=== PATIENT | female | born 1940 | race Caucasian/White ===

== ENCOUNTER 2016-11-10 12:47 | Emergency (ER) | payer MEDICARE, OTHER ==
[~2016-11-10] VITALS: Ht 165.1 cm; Wt 58.4 kg
[~2016-11-10 12:47] MED LIST: BUTA1CAP5 PO; CIPR-9 PO; HYDR-3801 PO; LOSA50TA PO; METO25TA3 PO; METR-1 PO; OMEP20TA PO; PERC5TAB12 PO; XARE20TA PO; ZOFR4TAB PO
[2016-11-10 12:56] VITALS: BP 121/73; PULSE 71; RESP 16; TEMP 97.7; O2SAT 98
[2016-11-10] MEDS ORDERED: SODIUM CHLOR 0.9% 1000 ML INJ 1,000 ML IV ONE (13:16)
[2016-11-10] MEDS ORDERED: CYMB30CA PO (13:21)
--- NOTE | 2016-11-10 13:28 | PD ---
HPI Chief Complaint: GI Complaint Time Seen by Provider: 13:07 Travel History International Travel<30 days: No Contact w/Intl Traveler<30days: No Traveled to known affect area: No History of Present Illness HPI The patient is a 76-year-old female who presents emergency department for diarrhea. The patient states her symptoms started approximately one month ago which she was diagnosed with diverticulitis. The patient was placed on Cipro and Flagyl, stasis Cipro gave her severe diarrhea. The patient is had intermittent diarrhea since that episode, now complains of bloody diarrhea. She does note diarrhea which occasional has bright red blood around the house with the diarrhea, has approximately 8-10 loose, watery, bowel movements per day , occasionally with blood. The patient also complains of intermittent abdominal cramping. The patient states she had 2 colonoscopies 2 years ago secondary to diverticulitis to evaluate if she would undergo colectomy, however , states she did not undergo colectomy. She does have a history of hysterectomy with previous small bowel obstruction secondary to adhesions, subsequently had surgical lysis of her adhesions. The patient was evaluated by her primary physician who referred her to the emergency department for dehydration and IV fluids. The patient denies any fever, chills, or sweats. The patient's development editor is Dr. Heller. The patient's colorectal surgeon is Dr. Angulo. The patient's primary physician is Dr. Leung. PFSH Past Medical History Hx Anticoagulant Therapy: Yes (XARELTO) Arthritis: No Asthma: No Autoimmune Disease: No Anxiety: Yes Depression: No Heart Rhythm Problems: Yes Cancer: No Cardiovascular Problems: Yes ([place], HTN) High Cholesterol: Yes Chemotherapy: No Chest Pain: Yes Congestive Heart Failure: No COPD: No Cerebrovascular Accident: Yes (NO DEFICITS) Coronary Artery Disease: Yes (mitral valve regurge) Diabetes: No Patient Takes Glucophage: No Diminished Hearing: No Diverticulitis: Yes Endocrine: No Gastrointestinal Disorders: No (last bm 07/02) GERD: Yes Genitourinary: No Headaches: No Hiatal Hernia: No Heparin Induced Thrombocytopen: No Hypertension: Yes Immune Disorder: No Implanted Vascular Access Dvce: No Kidney Stones: No Musculoskeletal: Yes (left shoulder and wrist pain, cause unknown) Neurologic: No Psychiatric: No Reproductive: Yes (HYSTERECTOMY) Respiratory: Yes (SOB) Immunizations Current: Yes Migraines: No Radiation Therapy: No Renal Failure: No Seizures: No Sickle Cell Disease: No Sleep Apnea: No Thyroid Disease: No Ulcer: No Tetanus Vaccination: Unknown ?: Not Menopausal: Yes Para: 3 Past Surgical History Abdominal Surgery: Yes (abdominal adhesions) AICD: No Arteriovenous Shunt: No Cardiac Surgery: Yes (SEPTAL MYOMECTOMY AND LEFT MAZE, ABLATION FOR AFIB) Ear Surgery: No Endocrine Surgery: Yes (TONSILLECTOMY) Eye Surgery: Yes (bilateral cataracts) Genitourinary Surgery: No Gynecologic Surgery: Yes (HYSTERECTOMY) Hysterectomy: Yes Insulin Pump: No Joint Replacement: No Neurologic Surgery: No Oral Surgery: No Pacemaker: No Thoracic Surgery: No Tonsillectomy: Yes Other Surgery: Yes (face lift, HEMORRHOIDECTOMY) Social History Alcohol Use: Yes (WINE 3-4 X WEEKLY) Tobacco Use: No Substance Use: No Allergies-Medications (Allergen,Severity, Reaction): Coded Allergies: Artane (Verified Allergy, Severe, focal dystonia, 11/10/16) Cardizem (Verified Allergy, Severe, achy muscles, blurry vision, 11/10/16) Celebrex (Verified Allergy, Severe, has sulfa in it, 11/10/16) Codeine (Verified Allergy, Severe, rash/hives, 11/10/16) Doxazosin (Verified Allergy, Severe, incontinence, eye itch, 11/10/16) Eliquis (Verified Allergy, Severe, Rash, 11/10/16) Felodipine (Verified Allergy, Severe, swelling of ankles, 11/10/16) Lasix (Verified Allergy, Severe, SULFA BASED, 11/10/16) Lovastatin (Verified Allergy, Severe, achy muscles, 11/10/16) Penicillin (Verified Allergy, Severe, Anaphylaxis, 11/10/16) Primidone (Verified Allergy, Severe, Nausea/Vomiting, 11/10/16) Sulfa (Verified Allergy, Severe, Anaphylaxis, 11/10/16) Norvasc (Verified Allergy, Unknown, unknown, 11/10/16) Vasotec (Verified Allergy, Unknown, unknown, 11/10/16) Ciprofloxacin (Verified Adverse Reaction, Severe, diarrhea, 11/10/16) Reported Meds & Prescriptions Reported Meds & Active Scripts Active Reported Cymbalta DR (Duloxetine HCl) 30 Mg Capdr 30 Mg PO DAILY Metoprolol Tartrate 25 Mg Tab 25 Mg PO BID Losartan (Losartan Potassium) 50 Mg Tab 50 Mg PO BID Hydralazine (Hydralazine HCl) 100 Mg Tab 100 Mg PO BID Take with meals Omeprazole 20 Mg Tab 20 Mg PO DAILY Xarelto (Rivaroxaban) 20 Mg Tab 20 Mg PO DAILY Review of Systems Except as stated in HPI: all other systems reviewed are Neg General / Constitutional: Positive: Weight Loss (weight loss of 5 pounds over the last month), No: Fever Cardiovascular: No: Chest Pain or Discomfort Respiratory: No: Shortness of Breath Gastrointestinal: Positive: Diarrhea, Abdominal Pain, Hematochezia, No: Nausea , Vomiting Genitourinary: No: Dysuria Musculoskeletal: No: Weakness Neurologic: No: Dizziness Physical Exam Narrative GENERAL: Awake, alert, pleasant 76-year-old female who appears her stated age and is in no acute respiratory distress. SKIN: Warm and dry. HEAD: Atraumatic. Normocephalic. EYES: No injection or drainage. ENT: No nasal bleeding or discharge. Slightly dry mucous membranes. NECK: Trachea midline. No JVD. CARDIOVASCULAR: Regular rate and rhythm. No murmur appreciated. RESPIRATORY: No accessory muscle use. Clear to auscultation. Breath sounds equal bilaterally. GASTROINTESTINAL: Abdomen soft, well-healed midline scar inferior to the umbilicus. Minimal tenderness, no rebound tenderness, guarding, or rigidity. Rectal: The exam was performed in the presence of a female nurse. No gross blood on digital exam, however, guaiac positive. MUSCULOSKELETAL: No obvious deformities. No clubbing. No cyanosis. No edema. NEUROLOGICAL: Awake and alert. No obvious cranial nerve deficits. Motor grossly within normal limits. Normal speech. PSYCHIATRIC: Appropriate mood and affect; insight and judgment normal. Data Data Last Documented VS Vital Signs Date Time Temp Pulse Resp B/P Pulse Ox O2 Delivery O2 Flow Rate FiO2 11/10/16 14:24 75 16 166/88 100 Room Air 11/10/16 12:56 97.7 Orders Complete Blood Count With Diff (11/10/16 13:16) Comprehensive Metabolic Panel (11/10/16 13:16) Lipase (11/10/16 13:16) Ct Abd/Pel W/O Iv Contrast (11/10/16 ) Iv Access Insert/Monitor (11/10/16 13:16) Ecg Monitoring (11/10/16 13:16) Oximetry (11/10/16 13:16) Sodium Chlor 0.9% 1000 Ml Inj (Ns 1000 M (11/10/16 13:16) Sodium Chloride 0.9% Flush (Ns Flush) (11/10/16 13:30) C Diff Toxin Pcr (11/10/16 13:16) Enteric Path (Stool) (11/10/16 13:16) Electrocardiogram (11/10/16 ) Chest, Single Ap (11/10/16 ) Potassium Chloride (Kcl) (11/10/16 14:45) Labs Laboratory Tests Test 11/10/16 13:25 White Blood Count 6.5 TH/MM3 Red Blood Count 3.57 MIL/MM3 Hemoglobin 12.1 GM/DL Hematocrit 36.7 % Mean Corpuscular Volume 102.8 FL Mean Corpuscular Hemoglobin 34.1 PG Mean Corpuscular Hemoglobin 33.1 % Concent Red Cell Distribution Width 12.2 % Platelet Count 308 TH/MM3 Mean Platelet Volume 7.0 FL Neutrophils (%) (Auto) 68.0 % Lymphocytes (%) (Auto) 18.4 % Monocytes (%) (Auto) 12.2 % Eosinophils (%) (Auto) 0.9 % Basophils (%) (Auto) 0.5 % Neutrophils # (Auto) 4.4 TH/MM3 Lymphocytes # (Auto) 1.2 TH/MM3 Monocytes # (Auto) 0.8 TH/MM3 Eosinophils # (Auto) 0.1 TH/MM3 Basophils # (Auto) 0.0 TH/MM3 CBC Comment DIFF FINAL Differential Comment Sodium Level 141 MEQ/L Potassium Level 2.9 MEQ/L Chloride Level 101 MEQ/L Carbon Dioxide Level 28.9 MEQ/L Anion Gap 11 MEQ/L Blood Urea Nitrogen 13 MG/DL Creatinine 0.70 MG/DL Estimat Glomerular Filtration 81 ML/MIN Rate Random Glucose 88 MG/DL Calcium Level 7.6 MG/DL Total Bilirubin 0.8 MG/DL Aspartate Amino Transf 13 U/L (AST/SGOT) Alanine Aminotransferase 10 U/L (ALT/SGPT) Alkaline Phosphatase 51 U/L Total Protein 7.8 GM/DL Albumin 3.6 GM/DL Lipase 186 U/L [facility] Medical Decision Making Medical Screen Exam Complete: Yes Emergency Medical Condition: Yes Medical Record Reviewed: Yes Interpretation(s) EKG reveals left bundle branch block, no significant changes compared to EKG performed July 04, 2016. Laboratory Tests Test 11/10/16 13:25 White Blood Count 6.5 TH/MM3 Red Blood Count 3.57 MIL/MM3 Hemoglobin 12.1 GM/DL Hematocrit 36.7 % Mean Corpuscular Volume 102.8 FL Mean Corpuscular Hemoglobin 34.1 PG Mean Corpuscular Hemoglobin 33.1 % Concent Red Cell Distribution Width 12.2 % Platelet Count 308 TH/MM3 Mean Platelet Volume 7.0 FL Neutrophils (%) (Auto) 68.0 % Lymphocytes (%) (Auto) 18.4 % Monocytes (%) (Auto) 12.2 % Eosinophils (%) (Auto) 0.9 % Basophils (%) (Auto) 0.5 % Neutrophils # (Auto) 4.4 TH/MM3 Lymphocytes # (Auto) 1.2 TH/MM3 Monocytes # (Auto) 0.8 TH/MM3 Eosinophils # (Auto) 0.1 TH/MM3 Basophils # (Auto) 0.0 TH/MM3 CBC Comment DIFF FINAL Differential Comment Sodium Level 141 MEQ/L Potassium Level 2.9 MEQ/L Chloride Level 101 MEQ/L Carbon Dioxide Level 28.9 MEQ/L Anion Gap 11 MEQ/L Blood Urea Nitrogen 13 MG/DL Creatinine 0.70 MG/DL Estimat Glomerular Filtration 81 ML/MIN Rate Random Glucose 88 MG/DL Calcium Level 7.6 MG/DL Total Bilirubin 0.8 MG/DL Aspartate Amino Transf 13 U/L (AST/SGOT) Alanine Aminotransferase 10 U/L (ALT/SGPT) Alkaline Phosphatase 51 U/L Total Protein 7.8 GM/DL Albumin 3.6 GM/DL Lipase 186 U/L Last Impressions Chest X-Ray 11/10/16 0000 Signed Impressions: Service Date/Time: Thursday, November 10, 2016 13:53 - CONCLUSION: No acute disease. Shane Covarrubias MD FACR Abdomen/Pelvis CT 11/10/16 0000 Signed Impressions: Service Date/Time: Thursday, November 10, 2016 13:58 - CONCLUSION: No acute intra-abdominal or pelvic process. Chronic changes of the mid and distal sigmoid colon consistent with diverticular disease. Hepatic cysts. Joe Card MD Differential Diagnosis Differential diagnosis includes infectious diarrhea, colitis, enteritis, dehydration, Clostridium difficile, pseudomembranous colitis, diverticulosis, diverticulitis, GI bleed. Narrative Course IV was established, labs were drawn and sent, and the patient was placed on cardiac telemetry monitoring and continuous pulse oximetry monitoring. C. difficile and stool culture was ordered. Patient was administered 1 L of IV fluids. CT of the abdomen and pelvis was ordered to evaluate for colitis. The patient had arm pain while the blood pressure cuff was being inflated and complained of chest pain at that time, therefore, EKG was ordered and interpreted. EKG revealed left bundle-branch block an assisted skin changes. Chest x-ray was ordered. Chest x-ray was negative. Laboratory evaluation is unremarkable except for potassium at 2.9. The patient did not have diarrhea in the emergency department, therefore, C. difficile and enteric pathogens was unable to be sent to lab. Therefore, will write patient for outpatient testing for C. difficile and enteric pathogens, will also write for Flagyl 500 mg 3 times a day for 10 days for possible C. difficile. The patient will be provided a copy of her CT results and lab results at discharge show she can follow-up with her primary physician. Patient agrees and understands. [facility] Point of Care Internal Pos. & Neg. Controls: Passed Fecal Specimen Occult Blood: Positive Diagnosis Primary Impression: Diarrhea Qualified Code: R19.7 - Diarrhea, unspecified type Patient Instructions: General Instructions Additional Instructions: Please provide the patient a copy of her CT results and lab results at discharge. Flagyl 3 times a day for 10 days if see differential positive. Follow-up with Dr. Marino for lab results. Return if symptoms worsen or progress. Diet as tolerated. Med/Other Pt SpecificInfo: Prescription(s) given Scripts Metronidazole (Flagyl)500 Mg [id number] Mg PO TID 10 Days Ref 0 Prov:Pepe Melgar MD 11/10/16 Disposition: 01 DISCHARGE HOME Condition: Stable Pepe Melgar MD Nov 10, 2016 13:28
[2016-11-10 13:30] VITALS: RESP 16; O2SAT 98
[2016-11-10] MEDS ORDERED: SODIUM CHLORIDE 0.9% FLUSH 5 ML FLUSH IVF PRN (13:30)
[2016-11-10 13:33] LABS: AUTOMATED NEUTROPHIL # 4.4 TH/MM3 (1.8-7.7); BASOPHIL % 0.5 % (0.0-2.0); EOSINOPHIL # 0.1 TH/MM3 (0-0.4); EOSINOPHIL % 0.9 % (0.0-4.0); HEMATOCRIT 36.7 % (35.0-46.0); HEMO FLAGS DIFF FINAL; LYMPH % 18.4 % (9.0-44.0); LYMPHOCYTE # 1.2 TH/MM3 (1.0-4.8); MEAN CELL VOLUME 102.8 FL (80.0-100.0); MEAN CORPUSCULAR HEMOGLOBIN 34.1 PG (27.0-34.0); MEAN CORPUSCULAR HGB CONC 33.1 % (32.0-36.0); MONO % 12.2 % (0.0-8.0); PLATELET COUNT 308 TH/MM3 (150-450); RED BLOOD COUNT 3.57 MIL/MM3 (4.00-5.30); RED CELL DISTRIBUTION WIDTH 12.2 % (11.6-17.2); WHITE BLOOD COUNT 6.5 TH/MM3 (4.0-11.0)
[2016-11-10 13:48] VITALS: BP 179/117; PULSE 74; RESP 20; O2SAT 99
--- NOTE | 2016-11-10 14:19 | RADHPO ---
EXAM DATE/TIME: 11/10/2016 13:58 [facility] COMPARISON: CT ABDOMEN & PELVIS W CONTRAST, June 30, 2014, 9:30. INDICATIONS : Diarrhea, blood in stool and low blood pressure. ORAL CONTRAST: No oral contrast ingested. RADIATION DOSE: 5.32 CTDIvol (mGy) MEDICAL HISTORY : Cerebrovascular disease. Hypertension. Cardiovascular disease SURGICAL HISTORY : Hysterectomy. Cardiac surgery. ENCOUNTER: Initial ACUITY: 1 month PAIN SCALE: 0/10 LOCATION: abdomen/pelvis TECHNIQUE: Volumetric scanning of the abdomen and pelvis was performed. Using automated exposure control and ad justment of the mA and/or kV according to patient size, radiation dose was kept as low as reasonably achievable to obtain optimal diagnostic quality images. FINDINGS: LOWER LUNGS: The visualized lower lungs are clear. LIVER: Homogeneous density with 2 low density cysts in the right lobe liver stable and unchanged. There is n o dilation of the biliary tree. No calcified gallstones. Gallbladder seen with luminal structure wit hout wall thickening SPLEEN: Normal size without lesion. PANCREAS: Within normal limits. KIDNEYS: Normal in size and shape. There is no mass, stone, or hydronephrosis. ADRENAL GLANDS: Within normal limits. VASCULAR: There is no aortic aneurysm. BOWEL/MESENTERY: Mild diverticulitis of the sigmoid colon with no evidence of perforation ABDOMINAL WALL: Within normal limits. RETROPERITONEUM: There is no lymphadenopathy. BLADDER: No wall thickening or mass. REPRODUCTIVE: Within normal limits. INGUINAL: There is no lymphadenopathy or hernia. MUSCULOSKELETAL: Within normal limits for patient age. CONCLUSION: No acute intra-abdominal or pelvic process. Chronic changes of the mid and distal sig moid colon consistent with diverticular disease. Hepatic cysts. Joe Card MD on November 10, 2016 at 14:14 Board Certified Radiologist. This report was verified electronically.
[2016-11-10 14:20] LABS: ALKALINE PHOSPHATASE 51 U/L (45-117); ALT (GPT) 10 U/L (10-53); ANION GAP 11 MEQ/L (5-15); AST (GOT) 13 U/L (15-37); BICARBONATE 28.9 MEQ/L (21.0-32.0); BLOOD UREA NITROGEN 13 MG/DL (7-18); CHLORIDE 101 MEQ/L (98-107); GLOMERULAR FILTRATION RATE 81 ML/MIN (>89); SODIUM (NA) 141 MEQ/L (136-145); TOTAL BILIRUBIN ADULT 0.8 MG/DL (0.2-1.0)
[2016-11-10 14:21] LABS: POTASSIUM 2.9 MEQ/L (3.5-5.1)
[2016-11-10 14:24] VITALS: BP 166/88; PULSE 75; RESP 16; O2SAT 100
--- NOTE | 2016-11-10 14:32 | RADHPO ---
EXAM DATE/TIME: 11/10/2016 13:53 [facility] COMPARISON: No previous studies available for comparison. INDICATIONS : Chest pain. MEDICAL HISTORY : Hypertension. Cardiovascular disease. SURGICAL HISTORY : ablation, cardiac surgery for IHSS ENCOUNTER: Initial ACUITY: 2 days PAIN SCORE: 1/10 LOCATION: Bilateral chest FINDINGS: A single view of the chest demonstrates the lungs to be symmetrically aerated without evidence of mas s, infiltrate or effusion. The cardiomediastinal contours are unremarkable. Osseous structures are intact. CONCLUSION: No acute disease. Shane Covarrubias MD FACR on November 10, 2016 at 14:31 Board Certified Radiologist. This report was verified electronically.
[2016-11-10] MEDS ORDERED: POTASSIUM CHLORIDE 20 MEQ CONTROLLED RELEASE TAB PO ONE (14:45)
[2016-11-10] MEDS ORDERED: METR-1 PO (14:46)
--- NOTE | 2016-11-11 16:22 | EKG ---
Date Performed: 11/10/2016 Time Performed: 13:48:00 PTAGE: 76 years EKG: Sinus rhythm Possible left atrial abnormality Left axis deviation Left bundle branch block Compared to prior trac ing no significant change Abnormal ECG PREVIOUS TRACING : 07/04/2016 14.01 DOCTOR: Mir Mckay Interpretating Date/Time 11/11/2016 16:20:03
== END 2016-11-10 15:14 | disposition home or self-care (01) ==
LOC: PHED 12:47
DX: R19.7 Diarrhea, unspecified (principal); I10 Essential (primary) hypertension; Z79.01 Long term (current) use of anticoagulants; F41.9 Anxiety disorder, unspecified; Z86.73 Personal history of transient ischemic attack (TIA), and cerebral infarction without residual deficits; I34.0 Nonrheumatic mitral (valve) insufficiency; I25.2 Old myocardial infarction; I44.7 Left bundle-branch block, unspecified
CPT/HCPCS: 71010; 74176; 80053; 83690; 85025; 93005; 96360; 99284; J7030

== ENCOUNTER 2016-11-18 19:55 | Inpatient (IN) | payer MEDICARE ==
[~2016-11-18] VITALS: Ht 165.1 cm; Wt 58.5 kg
[~2016-11-18 19:55] MED LIST changes: -BUTA1CAP5 PO; -CIPR-9 PO; +CYMB30CA PO; -PERC5TAB12 PO; -ZOFR4TAB PO
[2016-11-18 19:57] VITALS: PULSE 140; RESP 30
[2016-11-18] MEDS ORDERED: VANCOMYCIN INJ 1,250 MG in SODIUM CHLOR 0.9% 250 ML INJ 250 ML IV STA (20:00)
[2016-11-18] MEDS ORDERED: SODIUM CHLOR 0.9% 1000 ML INJ 400 ML IV ONE (20:00)
[2016-11-18] MEDS ORDERED: SODIUM CHLOR 0.9% 1000 ML INJ 1,000 ML IV ONE ×2 (20:00)
[2016-11-18] MEDS ORDERED: metroNIDAZOLE 500 MG INJ 100 ML IV STA (20:00)
[2016-11-18] MEDS ORDERED: PROMETHAZINE INJ 25 MG/ML VIAL IM ONE (20:00)
[2016-11-18] MEDS ORDERED: AZTREONAM INJ 2,000 MG in SODIUM CHLORIDE 0.9% INJ 100 ML IV STA (20:00)
[2016-11-18 20:29] LABS: AUTOMATED NEUTROPHIL # 13.5 TH/MM3 (1.8-7.7); BASOPHIL # 0.1 TH/MM3 (0-0.2); BASOPHIL % 0.4 % (0.0-2.0); EOSINOPHIL % 0.1 % (0.0-4.0); HEMATOCRIT 38.5 % (35.0-46.0); LYMPH % 13.5 % (9.0-44.0); LYMPHOCYTE # 2.4 TH/MM3 (1.0-4.8); MEAN CELL VOLUME 102.5 FL (80.0-100.0); MEAN CORPUSCULAR HEMOGLOBIN 35.2 PG (27.0-34.0); MEAN CORPUSCULAR HGB CONC 34.3 % (32.0-36.0); MONO % 8.4 % (0.0-8.0); NEUT % 77.6 % (16.0-70.0); PLATELET COUNT 395 TH/MM3 (150-450); RED BLOOD COUNT 3.76 MIL/MM3 (4.00-5.30); WHITE BLOOD COUNT 17.4 TH/MM3 (4.0-11.0)
[2016-11-18 20:32] LABS: HEMO FLAGS AUTO DIFF
[2016-11-18] MEDS ORDERED: AMIODARONE INJ 150 MG in DEXTROSE 5% IN WATER 100ML INJ 97 ML IV ONE ×4 (20:45)
[2016-11-18] MEDS ORDERED: AMIODARONE INJ 450 MG in DEXTROSE 5% IN WATE(EXCEL) INJ 241 ML IV SCH ×2 (20:45)
[2016-11-18] MEDS ORDERED: ETOMIDATE 20 MG/10 ML VIAL IV PUSH ONE (20:45)
[2016-11-18 20:46] LABS: APTT (PATIENT) 27.8 SEC (24.3-30.1); INTERNATIONAL NORMALIZED RATIO 1.5 RATIO; PROTHROMBIN TIME - PATIENT 16.3 SEC (9.8-11.6)
[2016-11-18 21:06] LABS: BANDS 1 % (0-6); NEUTROPHIL # MANUAL DIFF 14.8 TH/MM3 (1.8-7.7); POLYS (SEG NEUTROPHILS) 84 % (16-70); WBC DIFF SAMPLE 100
[2016-11-18 21:07] LABS: OVALOCYTES 2+ (NORMAL); PLATELET ESTIMATE SMEAR NORMAL (NORMAL); PLATELET MORPHOLOGY NORMAL (NORMAL); SCAN/DIFF FINAL DIFF MANUAL; SPHEROCYTES 1+ (NORMAL)
[2016-11-18 21:16] LABS: BICARBONATE 18.8 MEQ/L (21.0-32.0); MAGNESIUM 0.4 MG/DL (1.5-2.5); TOTAL BILIRUBIN ADULT 0.9 MG/DL (0.2-1.0)
--- NOTE | 2016-11-18 21:20 | RADRPT ---
EXAM DATE/TIME: 11/18/2016 20:09 [facility] COMPARISON: CT PULMONARY ANGIOGRAM, March 18, 2016, 13:37. CHEST SINGLE AP, November 10, 2016, 13:53. INDICATIONS : Patient has been short of breath since yesterday. MEDICAL HISTORY : Cerebrovascular disease. Hypertension. Cardiovascular disease. SURGICAL HISTORY : Hysterectomy. CABG. ENCOUNTER: Initial ACUITY: 1 day PAIN SCORE: 0/10 LOCATION: Bilateral chest FINDINGS: No infiltrate, effusion or pneumothorax. Heart size stable, within normal limits. Patient has had pre vious median sternotomy. CONCLUSION: No evidence of acute cardiopulmonary disease. Yadiel Goodman MD on November 18, 2016 at 21:18 Board Certified Radiologist. This report was verified electronically.
[2016-11-18 21:21] LABS: CALCIUM-PROTEIN CORRECTED 6.4 MG/DL (8.5-10.1); POTASSIUM 2.7 MEQ/L (3.5-5.1)
[2016-11-18] MEDS ORDERED: CALCIUM GLUCONATE INJ 1 GM in DEXTROSE 5% IN WATER 100ML INJ 100 ML IV ONE ×2 (21:30)
[2016-11-18] MEDS ORDERED: POTASSIUM CHLOR 40 MEQ PREMIX 100 ML IV ONE (21:30)
[2016-11-18 21:36] LABS: CKMB 2.1 NG/ML (0.5-3.6)
[2016-11-18 21:54] VITALS: RESP 18; O2SAT 98
[2016-11-18 22:06] VITALS: BP 142/77; PULSE 97; RESP 20; TEMP 98.6; O2SAT 98
--- NOTE | 2016-11-18 22:14 | PD ---
HPI Chief Complaint: Cardiac Complaint Time Seen by Provider: 20:00 Travel History International Travel<30 days: No Contact w/Intl Traveler<30days: No Traveled to known affect area: No History of Present Illness HPI 76-year-old female with a history of left bundle-branch block, hypertension, A. fib on Xarelto, mitral regurgitation and septal rhinoplasty arrives following one day of vomiting and generalized weakness. On scene EMS observed particular tachycardia and administered lidocaine. Evidently her heart rate decreased from 222 about 150. EMS also observed diaphoresis on scene which improved marginally en route to the ER. In the ER the patient denies chest pain however reports severe nausea and has vomited once. Heart rate approximately 150 with a wide complex tachycardia concerning for possible ventricular tachycardia. The patient underwent electrical cardioversion here with 100 [address] 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 Amiodarone started. Metoprolol 1 mg every 5 hours IV with 50 mg oral q12 recommended. Azactam and Flagyl started as the patient has a known history of C. difficile colitis as well as leukocytosis and a lactic acidosis of 10. Calcium and potassium replenishment. Patient received about 1-1/2 L crystalloid. She refused a right IJ central line. Patient has had several episodes of diarrhea here in the ER. PFSH Past Medical History Hx Anticoagulant Therapy: Yes (XARELTO) Arthritis: No Asthma: No Autoimmune Disease: No Anxiety: Yes Depression: No Heart Rhythm Problems: Yes Cancer: No Cardiovascular Problems: Yes (HI, HTN) High Cholesterol: Yes Chemotherapy: No Chest Pain: Yes Congestive Heart Failure: No COPD: No Cerebrovascular Accident: Yes (NO DEFICITS) Coronary Artery Disease: Yes (mitral valve regurge) Diabetes: No Diminished Hearing: No Diverticulitis: Yes Endocrine: No Gastrointestinal Disorders: No (last bm 07/02) GERD: Yes Genitourinary: No Headaches: No Hiatal Hernia: No Heparin Induced Thrombocytopen: No Hypertension: Yes Immune Disorder: No Implanted Vascular Access Dvce: No Kidney Stones: No Musculoskeletal: Yes (left shoulder and wrist pain, cause unknown) Neurologic: No Psychiatric: No Reproductive: Yes (HYSTERECTOMY) Respiratory: Yes (SOB) Immunizations Current: Yes Migraines: No Radiation Therapy: No Renal Failure: No Seizures: No Sickle Cell Disease: No Sleep Apnea: No Thyroid Disease: No Ulcer: No Menopausal: Yes Para: 3 Past Surgical History Abdominal Surgery: Yes (abdominal adhesions) AICD: No Arteriovenous Shunt: No Cardiac Surgery: Yes (SEPTAL MYOMECTOMY AND LEFT MAZE, ABLATION FOR AFIB) Ear Surgery: No Endocrine Surgery: Yes (TONSILLECTOMY) Eye Surgery: Yes (bilateral cataracts) Genitourinary Surgery: No Gynecologic Surgery: Yes (HYSTERECTOMY) Hysterectomy: Yes Insulin Pump: No Joint Replacement: No Neurologic Surgery: No Oral Surgery: No Pacemaker: No Thoracic Surgery: No Tonsillectomy: Yes Other Surgery: Yes (face lift, HEMORRHOIDECTOMY) Social History Alcohol Use: Yes (WINE 3-4 X WEEKLY) Tobacco Use: No Substance Use: No Allergies-Medications (Allergen,Severity, Reaction): Coded Allergies: Artane (Verified Allergy, Severe, focal dystonia, 11/18/16) Cardizem (Verified Allergy, Severe, achy muscles, blurry vision, 11/18/16) Celebrex (Verified Allergy, Severe, has sulfa in it, 11/18/16) Codeine (Verified Allergy, Severe, rash/hives, 11/18/16) Doxazosin (Verified Allergy, Severe, incontinence, eye itch, 11/18/16) Eliquis (Verified Allergy, Severe, Rash, 11/18/16) Felodipine (Verified Allergy, Severe, swelling of ankles, 11/18/16) Lasix (Verified Allergy, Severe, SULFA BASED, 11/18/16) Lovastatin (Verified Allergy, Severe, achy muscles, 11/18/16) Penicillin (Verified Allergy, Severe, Anaphylaxis, 11/18/16) Primidone (Verified Allergy, Severe, Nausea/Vomiting, 11/18/16) Sulfa (Verified Allergy, Severe, Anaphylaxis, 11/18/16) Norvasc (Verified Allergy, Unknown, unknown, 11/18/16) Vasotec (Verified Allergy, Unknown, unknown, 11/18/16) Ciprofloxacin (Verified Adverse Reaction, Severe, diarrhea, 11/18/16) Reported Meds & Prescriptions Reported Meds & Active Scripts Active Flagyl (Metronidazole) 500 Mg Tab 500 Mg PO TID [address] (Duloxetine HCl) 30 Mg Capdr 30 Mg PO DAILY Metoprolol Tartrate 25 Mg Tab 25 Mg PO BID Losartan (Losartan Potassium) 50 Mg Tab 50 Mg PO BID Hydralazine (Hydralazine HCl) 100 Mg Tab 100 Mg PO BID Take with meals Omeprazole 20 Mg Tab 20 Mg PO DAILY Xarelto (Rivaroxaban) 20 Mg Tab 20 Mg PO DAILY Review of Systems Except as stated in HPI: all other systems reviewed are Neg General / Constitutional: No: Fever Cardiovascular: Positive: Tachycardia, Diaphoresis, No: Chest Pain or Discomfort Gastrointestinal: Positive: Nausea, Vomiting, Diarrhea, Abdominal Pain Physical Exam Narrative GENERAL: 76-year-old female moderate distress secondary to pain and/or anxiety SKIN: Minimal diaphoresis upon arrival. HEAD: Atraumatic. Normocephalic. EYES: Pupils equal and round. No scleral icterus. No injection or drainage. ENT: No nasal bleeding or discharge. Mucous membranes pink and moist. NECK: Trachea midline. No JVD. CARDIOVASCULAR: Tachycardia. Diaphoresis. RESPIRATORY: Breath sounds clear bilaterally. No significant tachypnea. GASTROINTESTINAL: Generalized nonspecific tenderness. Soft. MUSCULOSKELETAL: No obvious deformities. No clubbing. No cyanosis. No edema. NEUROLOGICAL: Awake and alert. No obvious cranial nerve deficits. Motor grossly within normal limits. Normal speech. PSYCHIATRIC: Appropriate mood and affect; insight and judgment normal. Data Data Last Documented VS Vital Signs Date Time Temp Pulse Resp B/P Pulse Ox O2 Delivery O2 Flow Rate FiO2 11/18/16 22:06 98.6 97 20 142/77 98 Nasal Cannula 3 VS reviewed Orders Electrocardiogram (11/18/16 20:00) Complete Blood Count With Diff (11/18/16 20:00) Comprehensive Metabolic Panel (11/18/16 20:00) Prothrombin Time / Inr (Pt) (11/18/16 20:00) Act Partial Throm Time (Ptt) (11/18/16 20:00) Lactic Acid Sepsis Protocol (11/18/16 20:00) Magnesium (Mg) (11/18/16 20:00) Lipase (11/18/16 20:00) Ckmb (Isoenzyme) Profile (11/18/16 20:00) Troponin I (11/18/16 20:00) Urinalysis - C+S If Indicated (11/18/16 20:00) Blood Culture (11/18/16 20:00) Chest, Single Ap (11/18/16 20:00) Blood Glucose (11/18/16 20:00) Ecg Monitoring (11/18/16 20:00) Iv Access Insert/Monitor (11/18/16 20:00) Oximetry (11/18/16 20:00) Oxygen Administration (11/18/16 20:00) Urinary Catheter Insert/Apply (11/18/16 20:00) Vancomycin Inj (Vancomycin Inj) (11/18/16 20:00) Aztreonam Inj (Azactam Inj) (11/18/16 20:00) Metronidazole 500 Mg Inj (Flagyl 500 Mg (11/18/16 20:00) Sodium Chlor 0.9% 1000 Ml Inj (Ns 1000 M (11/18/16 20:00) Sodium Chlor 0.9% 1000 Ml Inj (Ns 1000 M (11/18/16 20:00) Sodium Chlor 0.9% 1000 Ml Inj (Ns 1000 M (11/18/16 20:00) Promethazine Inj (Phenergan Inj) (11/18/16 20:00) B-Type Natriuretic Peptide (11/18/16 20:36) Etomidate Inj (Amidate Inj) (11/18/16 20:45) ^ Medication Alert (11/18/16 20:39) ^ Discontinue (11/18/16 20:39) Amiodarone Inj (Cordarone Inj) (11/18/16 20:45) Amiodarone Inj (Cordarone Inj) (11/18/16 20:45) Vital Signs (Adult) ANAYELI.Q4H (11/18/16 20:39) Amiodarone Inj (Cordarone Inj) (11/18/16 20:45) CKMB (11/18/16 20:02) CKMB% (11/18/16 20:02) Calcium Gluconate Inj (Calcium Gluconate (11/18/16 21:30) Potassium Chlor 40 Meq Premix (Kcl 40 Me (11/18/16 21:30) Electrocardiogram (11/18/16 20:11) Potassium Chloride (Kcl) (11/18/16 22:15) Calcium Gluconate Inj (Calcium Gluconate (11/18/16 22:15) Magnesium Sulfate 1 Gm Premix (Magnesium (11/18/16 22:30) Admit Order (Ed Use Only) (11/18/16 23:03) Labs Laboratory Tests Test 11/18/16 11/18/16 20:02 20:05 White Blood Count 17.4 TH/MM3 Red Blood Count 3.76 MIL/MM3 Hemoglobin 13.2 GM/DL Hematocrit 38.5 % Mean Corpuscular Volume 102.5 FL Mean Corpuscular Hemoglobin 35.2 PG Mean Corpuscular Hemoglobin 34.3 % Concent Red Cell Distribution Width 12.0 % Platelet Count 395 TH/MM3 Mean Platelet Volume 7.7 FL Neutrophils (%) (Auto) 77.6 % Lymphocytes (%) (Auto) 13.5 % Monocytes (%) (Auto) 8.4 % Eosinophils (%) (Auto) 0.1 % Basophils (%) (Auto) 0.4 % Neutrophils # (Auto) 13.5 TH/MM3 Lymphocytes # (Auto) 2.4 TH/MM3 Monocytes # (Auto) 1.5 TH/MM3 Eosinophils # (Auto) 0.0 TH/MM3 Basophils # (Auto) 0.1 TH/MM3 CBC Comment AUTO DIFF Differential Total Cells 100 Counted Neutrophils % (Manual) 84 % Band Neutrophils % 1 % Lymphocytes % 10 % Monocytes % 5 % Neutrophils # (Manual) 14.8 TH/MM3 Differential Comment FINAL DIFF MANUAL Platelet Estimate NORMAL Platelet Morphology Comment NORMAL Spherocytes 1+ Ovalocytes 2+ Prothrombin Time 16.3 SEC Prothromb Time International 1.5 RATIO Ratio Activated Partial 27.8 SEC Thromboplast Time Sodium Level 137 MEQ/L Potassium Level 2.7 MEQ/L Chloride Level 96 MEQ/L Carbon Dioxide Level 18.8 MEQ/L Anion Gap 22 MEQ/L Blood Urea Nitrogen 8 MG/DL Creatinine 1.05 MG/DL Estimat Glomerular Filtration 51 ML/MIN Rate Random Glucose 204 MG/DL Calcium Level 6.6 MG/DL Protein Corrected Calcium 6.4 MG/DL Magnesium Level 0.4 MG/DL Total Bilirubin 0.9 MG/DL Aspartate Amino Transf 25 U/L (AST/SGOT) Alanine Aminotransferase 14 U/L (ALT/SGPT) Alkaline Phosphatase 56 U/L Total Creatine Kinase 215 U/L Creatine Kinase MB 2.1 NG/ML Creatine Kinase MB % 1.0 % Troponin I 0.06 NG/ML Total Protein 7.6 GM/DL Albumin 3.4 GM/DL Lipase 153 U/L Lactic Acid Level 10.3 mmol/L [facility] Medical Decision Making Medical Screen Exam Complete: Yes Emergency Medical Condition: Yes Medical Record Reviewed: Yes Differential Diagnosis Coronary disease, sepsis, electrolyte imbalance, multiorgan failure, CHF, C. difficile colitis Narrative Course EKGs reveal left bundle branch block morphology with a rate between 116 and 140 ; patient has a known history of left bundle branch block CBC & BMP Diagram 11/18/16 20:02 LA 10./3 Calcium 6.6 AG 22 Tn 0.06 Magnesium 0.4 Last 24 hours Impressions Chest X-Ray 11/18/161999 Signed Impressions: Service Date/Time: November 20:09 - CONCLUSION: No evidence of acute cardiopulmonary disease. Yadiel Goodman MD The patient will be admitted to the intensive care unit. d/w Dr Rocha. Potassium , calcium and magnesium replenishment. Flagyl aztreonam and Vanco started. Patient's blood pressure heart rate improved during ER stay with a heart rate in 85 with a narrow complex and a blood pressure 147/63 11:07 PM. Patient resting comfortably. She tolerated oral potassium. Critical Care Narrative Aggregate critical care time was 90 minutes. Time to perform other separately billable procedures was not included in the critical care time. My time did not include minutes spent treating any other patients simultaneously or on activities that did not directly contribute to the patient's treatment. The services I provided to this patient were to treat and/or prevent clinically significant deterioration that could result in: Cardiopulmonary arrest, respiratory arrest, multiorgan failure, permanent disability I provided critical care services requiring my management, as noted below: Chart data review, documentation time, medication orders and management, vital sign assessments/reviewing monitor data, ordering and reviewing lab tests, ordering and interpreting/reviewing x-rays and diagnostic studies, care of the patient and discussion of the patient with the admitting physicians. Procedures Procedure Narrative After the risks and benefits were discussed the following procedure was performed: MODERATE SEDATION: The patient was placed on a load dispatcher local and pulse oximetry. An ambu bag and suction was immediately available at bedside. The patient was monitored by the nurse. Oxygen saturation , heart rate and blood pressure were monitored. Procedural sedation was acheived using etomidate. The patient was observed until awake and alert. Procedural Sedation time in attendance was 20 minutes. Diagnosis Primary Impression: Tachyarrhythmia Additional Impressions: Hypomagnesemia Hypocalcemia Hypokalemia Septic colitis Elevated troponin Diarrhea Qualified Code: R19.7 - Diarrhea, unspecified type Admitting Information Admitting Physician Requests: Admit Hebert Corley MD Nov 18, 2016 22:14
[2016-11-18] MEDS ORDERED: POTASSIUM CHLORIDE 10 MEQ CONTROLLED RELEASE TAB PO ONE (22:15)
[2016-11-18] MEDS ORDERED: CALCIUM GLUCONATE INJ 1 GM in SODIUM CHLORIDE 0.9% INJ 100 ML IV ONE (22:15)
[2016-11-18 22:19] LABS: LACTIC ACID GHOST NOT REPORTABLE
[2016-11-18] MEDS: MAGNESIUM SULFATE 1 GM PREMIX 100 ML IV SCH ×2 (22:32→23:55)
[2016-11-18 23:05] VITALS: BP 147/63; PULSE 85; RESP 18; O2SAT 98
--- NOTE | 2016-11-18 23:36 | HHI.HP ---
HPI Service Critical Care Medicine Primary Care Physician Desirae Leung MD Admission Diagnosis VTach, Electrolyte Abnormalities, Sepsis Diagnosis: Travel History International Travel<30 Days: No Contact w/Intl Traveler <30 Da: No Traveled to Known Affected Are: No History of Present Illness 76-year-old female with a history of left bundle-branch block, hypertension, A. fib on Xarelto, mitral regurgitation and septal rhinoplasty arrives following one day of vomiting and generalized weakness. At a scene EMS observed particular tachycardia and administered lidocaine. Her heart rate decreased from 222 about 150. EMS also observed diaphoresis on scene which improved marginally en route to the ER. In the ER the patient denies chest pain however reports severe nausea and has vomited once. Heart rate approximately 150 with a wide complex tachycardia concerning for possible ventricular tachycardia. The patient underwent electrical cardioversion in the ED with 100 150 200 J. Cardiology was notified and started Amiodarone. Metoprolol 1 mg every 5 hours IV with 50 mg oral q12 recommended. Azactam and Flagyl started as the patient has a known history of C. difficile colitis as well as leukocytosis and a lactic acidosis of 10. Patient received about 1-1/2 L crystalloid. She refused a right IJ central line and is now admitted to ICU. Review of Systems Constitutional: COMPLAINS OF: Diaphoretic episodes, DENIES: Fatigue, Fever, Weight gain, Weight loss, Chills, Dizziness, Change in appetite, Night Sweats Endocrine: DENIES: Abnorml menstrual pattern, Heat/cold intolerance, Polydipsia , Polyuria, Polyphagia Eyes: DENIES: Blurred vision, Diplopia, Eye inflammation, Eye pain, Vision loss , Photosensitivity, Double Vision Ears, nose, mouth, throat: DENIES: Tinnitus, Hearing loss, Vertigo, Nasal discharge, Oral lesions, Throat pain, Hoarseness, Ear Pain, Running Nose, Epistaxis, Sinus Pain, Toothache, Odynophagia Respiratory: DENIES: Apneas, Cough, Snoring, Wheezing, Hemoptysis, Sputum production, Shortness of breath Cardiovascular: COMPLAINS OF: Chest pain, Palpitations, Dyspnea on Exertion, DENIES: Syncope, PND, Lower Extremity Edema, Orthopnea, Claudication Gastrointestinal: DENIES: Abdominal pain, Black stools, Bloody stools, Constipation, Diarrhea, Nausea, Vomiting, Difficulty Swallowing, Anorexia Genitourinary: DENIES: Abnormal vaginal bleeding, Dysmenorrhea, Dyspareunia, Sexual dysfunction, Urinary frequency, Urinary incontinence, Urgency, Hematuria , Dysuria, Nocturia, Vaginal discharge Musculoskeletal: DENIES: Joint pain, Muscle aches, Stiffness, Joint Swelling, Back pain, Neck pain Integumentary: DENIES: Abnormal pigmentation, Pruritus, Rash, Nail changes, Breast masses, Breast skin changes, Nipple discharge Hematologic/lymphatic: DENIES: Bruising, Lymphadenopathy Immunologic/allergic: DENIES: Eczema, Urticaria Neurologic: DENIES: Abnormal gait, Headache, Localized weakness, Paresthesias, Seizures, Speech Problems, Tremor, Poor Balance Psychiatric: DENIES: Anxiety, Confusion, Mood changes, Depression, Hallucinations, Agitation, Suicidal Ideation, Homicidal Ideation, Delusions Past Family Social History Allergies: Coded Allergies: Artane (Verified Allergy, Severe, focal dystonia, 11/18/16) Cardizem (Verified Allergy, Severe, achy muscles, blurry vision, 11/18/16) Celebrex (Verified Allergy, Severe, has sulfa in it, 11/18/16) Codeine (Verified Allergy, Severe, rash/hives, 11/18/16) Doxazosin (Verified Allergy, Severe, incontinence, eye itch, 11/18/16) Eliquis (Verified Allergy, Severe, Rash, 11/18/16) Felodipine (Verified Allergy, Severe, swelling of ankles, 11/18/16) Lasix (Verified Allergy, Severe, SULFA BASED, 11/18/16) Lovastatin (Verified Allergy, Severe, achy muscles, 11/18/16) Penicillin (Verified Allergy, Severe, Anaphylaxis, 11/18/16) Primidone (Verified Allergy, Severe, Nausea/Vomiting, 11/18/16) Sulfa (Verified Allergy, Severe, Anaphylaxis, 11/18/16) Norvasc (Verified Allergy, Unknown, unknown, 11/18/16) Vasotec (Verified Allergy, Unknown, unknown, 11/18/16) Ciprofloxacin (Verified Adverse Reaction, Severe, diarrhea, 11/18/16) Past Medical History Hypertension Hyperlipidemia History of a defibrillation History of myocardial infarction Idiopathic hypertrophic subaortic stenosis Anxiety Past Surgical History Cataract surgery Tonsillectomy Cardiac catheterization Septal myectomy Hysterectomy Left shoulder surgery Right ganglion cyst removal Abdominal surgery for adhesion removal Hemorrhoidectomy Eyelid surgery Open heart surgery for IHSS Maze procedure Reported Medications Flagyl (Metronidazole) 500 Mg Tab 500 Mg PO TID [address] (Duloxetine HCl) 30 Mg Capdr 30 Mg PO DAILY Omeprazole 20 Mg Tab 20 Mg PO DAILY Xarelto (Rivaroxaban) 20 Mg Tab 20 Mg PO DAILY Active Ordered Medications Current Medications Medications (Trade) Dose Ordered Sig/Ana Route PRN Reason Start Time Stop Time Status Last Admin Dose Admin Amiodarone HCl/ Dextrose (Cordarone Inj/ D5W (Brick) Inj) 250 ml @ 0 mls/hr CONTINUOUS IV 11/18/16 20:45 11/18/16 22:20 IV Flush (NS Flush) 2 ml UNSCH PRN IV FLUSH FLUSH AFTER USING IV ACCESS 11/19/16 02:45 UNV IV Flush (NS Flush) 2 ml BID IV FLUSH 11/19/16 09:00 UNV Acetaminophen (Tylenol) 650 mg Q6H PRN PO PAIN 1-10 AND/OR FEVER >101F 11/19/16 02:45 UNV Morphine Sulfate (Morphine Inj) 2 mg Q2H PRN IV PAIN SCALE 6 TO 10 11/19/16 02:45 UNV Famotidine (Pepcid) 20 mg Q12HR PO 11/19/16 09:00 UNV Lorazepam (Ativan Inj) 0.5 mg Q4H PRN IV Agitation/Sedation 11/19/16 02:45 UNV Ondansetron HCl (Zofran Inj) 4 mg Q6H PRN IV NAUSEA OR VOMITING 11/19/16 02:45 UNV Miscellaneous Information 1 [id number] XX 11/19/16 02:45 UNV Chlorhexidine Gluconate (Chlorhexidine 2% Cloth) 3 pack Taper DAILY@04 TOP 11/19/16 04:00 11/15/17 03:59 UNV Chlorhexidine Gluconate (Chlorhexidine 2% Cloth) 3 pack UNSCH PRN TOP HYGIENIC CARE 11/19/16 02:45 UNV Family History Noncontributory Social History Negative 3 Physical Exam Vital Signs Vital Signs Date Time Temp Pulse Resp B/P Pulse Ox O2 Delivery O2 Flow Rate FiO2 11/18/16 23:05 85 18 147/63 98 Nasal Cannula 3 11/18/16 22:06 98.6 97 20 142/77 98 Nasal Cannula 3 11/18/16 21:54 18 98 Nasal Cannula 3 11/18/16 20:04 98 Nasal Cannula 2 11/18/16 19:57 140 30 Physical Exam GENERAL: Well-nourished, well-developed patient. SKIN: Warm and dry. HEAD: Normocephalic. EYES: No scleral icterus. No injection or drainage. NECK: Supple, trachea midline. No JVD or lymphadenopathy. CARDIOVASCULAR: Regular rate and rhythm without murmurs, gallops, or rubs. RESPIRATORY: Breath sounds equal bilaterally. No accessory muscle use. GASTROINTESTINAL: Abdomen soft, non-tender, nondistended. MUSCULOSKELETAL: No cyanosis, or edema. BACK: Nontender without obvious deformity. No CVA tenderness. Laboratory Laboratory Tests Test 11/18/16 11/18/16 11/18/16 20:02 20:05 22:45 White Blood Count 17.4 Red Blood Count 3.76 Hemoglobin 13.2 Hematocrit 38.5 Mean Corpuscular Volume 102.5 Mean Corpuscular Hemoglobin 35.2 Mean Corpuscular Hemoglobin 34.3 Concent Red Cell Distribution Width 12.0 Platelet Count 395 Mean Platelet Volume 7.7 Neutrophils (%) (Auto) 77.6 Lymphocytes (%) (Auto) 13.5 Monocytes (%) (Auto) 8.4 Eosinophils (%) (Auto) 0.1 Basophils (%) (Auto) 0.4 Neutrophils # (Auto) 13.5 Lymphocytes # (Auto) 2.4 Monocytes # (Auto) 1.5 Eosinophils # (Auto) 0.0 Basophils # (Auto) 0.1 CBC Comment AUTO DIFF Differential Total Cells 100 Counted Neutrophils % (Manual) 84 Band Neutrophils % 1 Lymphocytes % 10 Monocytes % 5 Neutrophils # (Manual) 14.8 Differential Comment FINAL DIFF MANUAL Platelet Estimate NORMAL Platelet Morphology Comment NORMAL Spherocytes 1+ Ovalocytes 2+ Prothrombin Time 16.3 Prothromb Time International 1.5 Ratio Activated Partial 27.8 Thromboplast Time Sodium Level 137 Potassium Level 2.7 Chloride Level 96 Carbon Dioxide Level 18.8 Anion Gap 22 Blood Urea Nitrogen 8 Creatinine 1.05 Estimat Glomerular Filtration 51 Rate Random Glucose 204 Calcium Level 6.6 Protein Corrected Calcium 6.4 Magnesium Level 0.4 Total Bilirubin 0.9 Aspartate Amino Transf 25 (AST/SGOT) Alanine Aminotransferase 14 (ALT/SGPT) Alkaline Phosphatase 56 Total Creatine Kinase 215 Creatine Kinase MB 2.1 Creatine Kinase MB % 1.0 Troponin I 0.06 Total Protein 7.6 Albumin 3.4 Lipase 153 Lactic Acid Level 10.3 1.4 Date/Time Procedure Status Source Growth 11/18/16 20:05 Aerobic Blood Culture Received Blood Peripheral Pending 11/18/16 20:05 Anaerobic Blood Culture Received Blood Peripheral Pending Result Diagram: 11/18/16200111/18/162001 Imaging Last 24 hours Impressions Chest X-Ray 11/18/161999 Signed Impressions: Service Date/Time: November 20:09 - CONCLUSION: No evidence of acute cardiopulmonary disease. Yadiel Goodman MD Assessment and Plan Problem List: (1) Hypertensive emergency ICD Code: I10 Status: Acute (2) Dehydration ICD Code: E86.0 Status: Acute (3) A-fib ICD Code: I48.91 Status: Chronic (4) Anxiety ICD Code: F41.9 Status: Chronic (5) Nausea & vomiting ICD Code: R11.2 Status: Resolved (6) Hypokalemia ICD Code: E87.6 Status: Acute (7) Hypocalcemia ICD Code: E83.51 Status: Acute (8) Elevated troponin ICD Code: R79.89 Status: Acute Assessment and Plan Rapid A. fib with RVR - Status post cardioversion - Rate controlled with amiodarone drip - Management per Auto Inspector Hypertension - Resume home medications Nausea vomiting - Reglan Hypokalemia - i.v replacement Hypoglycemia - Replacement per ICU DVT GI prophylaxis - Lovenox Pepcid Critical Care: The total critical care time was 35 minutes. Time to perform other separately billable procedures was not included in the critical care time. Glenroy Rocha MD Nov 18, 2016 23:36
[2016-11-19] VITALS (13 sets, daily range): BP systolic 137–162; BP diastolic 64–90; PULSE 92–107; RESP 18–20; TEMP 98–98.3; O2SAT 95–100
[2016-11-19 01:34] LABS: BACTERIA, URINE RARE /hpf; BLOOD, URINE NEG (NEG); COMMENT (UR) CATH-CULTURE IND; CULTURE IF INDICATED CATH CULTURE IND; GLUCOSE,URINE NEG (NEG); KETONE, URINE 10 mg/dL (NEG); NITRITE,URINE NEG (NEG); RENAL EPITHELIAL CELLS <1 /hpf; SQUAMOUS EPITHELIAL CELL URINE <1 /hpf (0-5); TRANSITIONAL EPI CELLS, URINE <1 /hpf; URINE COLOR LIGHT-YELLOW (YELLW/STRAW)
[2016-11-19] MEDS ORDERED: CHLORHEXIDINE GLUCONATE 2 % 1 PACK (2 CLOTHS) TOP PRN ×2 (02:45→11:45)
[2016-11-19] MEDS ORDERED: METOCLOPRAMIDE HCL 10 MG/2 ML VIAL IV PRN (02:45)
[2016-11-19] MEDS ORDERED: MISCELLANEOUS NURSING INFORMATION XX SCH ×2 (02:45→11:45)
[2016-11-19] MEDS ORDERED: ACETAMINOPHEN 325 MG TAB PO PRN ×2 (02:45→11:45)
[2016-11-19] MEDS ORDERED: SODIUM CHLORIDE 0.9% FLUSH 5 ML FLUSH IV FLUSH PRN (02:45)
[2016-11-19] MEDS ORDERED: RESP: ALBUTEROL 2.5 MG/IPRATROPIUM 0.5 MG NEB (PRN) INH ×2 (02:45→11:45)
[2016-11-19] MEDS ORDERED: ONDANSETRON HCL 4 MG/2 ML VIAL IV PRN ×2 (02:45→11:45)
[2016-11-19] MEDS ORDERED: CHLORHEXIDINE GLUCONATE 2 % 1 PACK (2 CLOTHS) TOP SCH (04:00)
[2016-11-19] MEDS ORDERED: POTASSIUM CL 40 MEQ/30 ML LIQ UDC PO/TUBE PRN ×3 (05:15→11:45)
[2016-11-19] MEDS ORDERED: POTASSIUM CHLOR 40 MEQ PREMIX 100 ML IV PRN ×4 (05:15→11:45)
[2016-11-19] MEDS ORDERED: MAGNESIUM SULFATE INJ 2 GM in SODIUM CHLORIDE 0.9% INJ 96 ML IV PRN ×2 (05:15→11:45)
[2016-11-19] MEDS ORDERED: POTASSIUM PHOSPHATE MONOBASIC 500 MG TAB PO PRN ×2 (05:15→11:45)
[2016-11-19] MEDS ORDERED: POTASSIUM PHOSPHATE MONOBASIC 500 MG TAB PO/TUBE PRN ×2 (05:15→11:45)
[2016-11-19] MEDS ORDERED: SODIUM PHOSPHATE INJ 30 MMOL in SODIUM CHLOR 0.9% 250 ML INJ 240 ML IV PRN ×2 (05:15→11:45)
[2016-11-19] MEDS ORDERED: MAGNESIUM OXIDE 400 MG TAB PO PRN ×2 (05:15→11:45)
[2016-11-19] MEDS ORDERED: MAGNESIUM SULFATE INJ 4 GM in SODIUM CHLORIDE 0.9% INJ 92 ML IV PRN ×2 (05:15→11:45)
[2016-11-19] MEDS ORDERED: POTASSIUM PHOSPHATE INJ 30 MMOL in SODIUM CHLOR 0.9% 250 ML INJ 250 ML IV PRN ×2 (05:15→11:45)
[2016-11-19] MEDS ORDERED: POTASSIUM CHLOR 20 MEQ PREMIX 100 ML IV PRN ×4 (05:15→11:45)
[2016-11-19] MEDS ORDERED: ENOXAPARIN SODIUM 30 MG/0.3 ML SYRINGE SQ SCH (06:00)
[2016-11-19] MEDS: SODIUM CHLORIDE 0.9% FLUSH 5 ML FLUSH IV FLUSH SCH ×2 (08:44→19:54)
[2016-11-19] MEDS: DOCUSATE SODIUM 100 MG CAP PO SCH ×3 (08:45→20:53)
[2016-11-19] MEDS: FAMOTIDINE 20 MG TAB PO SCH ×2 (08:45→20:54)
[2016-11-19] MEDS ORDERED: DULoxetine HCl DR 30 MG CAP PO ONE (11:15)
--- NOTE | 2016-11-19 11:26 | HHI.CCPN ---
Subjective Remarks/Hospital Course 76-year-old female with a history of left bundle-branch block, hypertension, A. fib on Xarelto, mitral regurgitation and septal rhinoplasty arrives following one day of vomiting and generalized weakness. At a scene EMS observed particular tachycardia and administered lidocaine. Her heart rate decreased from 222 about 150. EMS also observed diaphoresis on scene which improved marginally en route to the ER. In the ER the patient denies chest pain however reports severe nausea and has vomited once. Heart rate approximately 150 with a wide complex tachycardia concerning for possible ventricular tachycardia. The patient underwent electrical cardioversion in the ED with 100 150 200 J. Cardiology was notified and started Amiodarone. Metoprolol 1 mg every 5 hours IV with 50 mg oral q12 recommended. Azactam and Flagyl started as the patient has a known history of C. difficile colitis as well as leukocytosis and a lactic acidosis of 10. Patient received about 1-1/2 L crystalloid. She refused a right IJ central line and is now admitted to ICU. Subjective 2/3: Currently in normal sinus rhythm. Denies chest pain or shortness of breath currently. On nasal cannula answering questions appropriately. Objective Vital Signs Date Time Temp Pulse Resp B/P Pulse Ox O2 Delivery O2 Flow Rate FiO2 11/19/16 10:06 101 18 154/89 100 Nasal Cannula 2 11/18/16 22:06 98.6 Result Diagram: 11/18/16200111/18/162001 Other Results Microbiology Date/Time Procedure Status Source Growth 11/19/16 00:50 Urine Culture Received Urine Catheterized Urine Pending 11/18/16 20:05 Aerobic Blood Culture Received Blood Peripheral Pending 11/18/16 20:05 Anaerobic Blood Culture Received Blood Peripheral Pending Imaging Last Impressions Chest X-Ray 11/18/161999 Signed Impressions: Service Date/Time: November 20:09 - CONCLUSION: No evidence of acute cardiopulmonary disease. Yadiel Goodman MD Objective Remarks GENERAL: 76-year-old female, currently resting in bed in no acute distress SKIN: Warm and dry. No rash HEAD: Normocephalic. EYES: No scleral icterus. No injection or drainage. NECK: Supple, trachea midline. No JVD or lymphadenopathy. CARDIOVASCULAR: Regular rate and rhythm. S1, S2. No S4. 2/6 systolic murmur clements sternal. No gallops or clicks or rubs. RESPIRATORY: Breath sounds equal bilaterally. No accessory muscle use. GASTROINTESTINAL: Abdomen soft, non-tender, nondistended. Positive bowel sounds are appreciated MUSCULOSKELETAL: No significant peripheral edema. BACK: Nontender without obvious deformity. No CVA tenderness. A/P Problem List: (1) Hypertensive emergency ICD Code: I10 Status: Acute (2) Dehydration ICD Code: E86.0 Status: Acute (3) A-fib ICD Code: I48.91 Status: Chronic (4) Anxiety ICD Code: F41.9 Status: Chronic (5) Nausea & vomiting ICD Code: R11.2 Status: Resolved (6) Hypokalemia ICD Code: E87.6 Status: Acute (7) Hypocalcemia ICD Code: E83.51 Status: Acute (8) Elevated troponin ICD Code: R79.89 Status: Acute Assessment and Plan Neuro/Psych: History of right pontine CVA Bilateral cataracts Claustrophobia Fibromyalgia Acetaminophen for fever Continue Cymbalta 30 milligrams by mouth daily. CV: A. fib with RVR History of IHSS - septal myotomy/left maze [address] Archibald at [facility] Hypertension Dyslipidemia Carotid stenosis MVR Status post cardioversion/initiation of amiodarone drip 2-D echo 06/22 revealed EF 50%. No regional wall motion abnormality. Mild AR, MR and TR. Left atrial enlargement. NATHALIE [address] Archuleta consult his/her nursing attendant Noted recommend amiodarone drip/metoprolol 50 mg twice a day Serial troponins currently 0.26. Resp: Acute respiratory insufficiency Nasal cannula to maintain saturations greater or equal to 92% IS while awake Chest x-ray on admission reveals no acute cardio pulmonary findings GI: Gastroesophageal reflux disease Nausea/vomiting History diverticulosis On heart healthy diet. On Prilosec 20 mg daily at home. Hospital substitution Protonix 40 mg by mouth daily Colace/as needed Senokot for bowel regimen : Meraz if indicated for accurate I's and O's in a critically ill patient Endo: Hyperglycemia of critical illness Sliding-scale insulin if indicated. Check TSH Renal: Monitor urine output closely. Accurate I/os. Heme: Leukocytosis Macrocytosis Hypercoagulable state Xarelto use Resume Xarelto 20 mg by mouth daily. Monitor trends with CBC. History of EtOH use one to 2 glasses of wine daily ID: C. difficile positive UTI Continue Flagyl 500 milligrams 3 times a day On aztreonam 1 g IV every 8 hours for UTI. Blood cultures/urine cultures pending FEN: Hypokalemia Hypocalcemia Hypomagnesium Recheck BMP Replace electrolytes as clinically indicated. Goal magnesium of 2.0. Potassium of 4.0. MSK: History of carpal tunnel syndrome PT/OT evaluate and treat. Access - Utilize peripheral IV. Central line if indicated Prophylaxis - GI - Protonix - DVT - Jim Moon MD Nov 19, 2016 11:26
[2016-11-19] MEDS ORDERED: GLUCAGON 1 MG/ML VIAL OTHER PRN (11:45)
[2016-11-19] MEDS ORDERED: DEXTROSE 50% IN WATER 50 ML VIAL(D50) IV PUSH PRN (11:45)
[2016-11-19] MEDS ORDERED: SENNOSIDES 8.6 MG TAB PO PRN (11:45)
[2016-11-19 13:17] LABS: BICARBONATE 27.9 MEQ/L (21.0-32.0); MAGNESIUM 0.9 MG/DL (1.5-2.5)
[2016-11-19 13:27] LABS: HEMOGLOBIN A1a 1.3 %; HEMOGLOBIN A1b 0.7 %; HEMOGLOBIN Ao 84.7 %; HEMOGLOBIN F 2.1 %
--- NOTE | 2016-11-19 13:45 | EKG ---
Date Performed: 11/18/2016 Time Performed: 20:59:19 PTAGE: 76 years EKG: SINUS TACHYCARDIA WITH OCCASIONAL VENTRICULAR PREMATURE COMPLEXES POSSIBLE RIGHT ATRIAL ENL ARGEMENT MARKED LEFT AXIS DEVIATION LEFT BUNDLE BRANCH BLOCK ABNORMAL ECG PREVIOUS TRACING : 11/18/2016 20.11 Since previous tracing, no significant change noted DOCTOR: Kenyatta Trujlilo Interpretating Date/Time 11/19/2016 13:37:29
--- NOTE | 2016-11-19 13:45 | EKG ---
Date Performed: 11/18/2016 Time Performed: 20:11:28 PTAGE: 76 years EKG: SINUS TACHYCARDIA WITH FIRST DEGREE AV BLOCK MARKED LEFT AXIS DEVIATION LEFT BUNDLE BRANCH BLOCK ABNORMAL ECG PREVIOUS TRACING : 11/18/2016 19.58 Since previous tracing, no significant change noted DOCTOR: Kenyatta Trujillo Interpretating Date/Time 11/19/2016 13:37:14
--- NOTE | 2016-11-19 13:45 | EKG ---
Date Performed: 11/19/2016 Time Performed: 04:19:38 PTAGE: 76 years EKG: JUNCTIONAL RHYTHM MARKED LEFT AXIS DEVIATION LEFT BUNDLE BRANCH BLOCK ABNORMAL ECG PREVIOUS TRACING : 11/18/2016 20.59.19 Since previous tracing, no significant change noted DOCTOR: Kenyatta Trujillo Interpretating Date/Time 11/19/2016 13:37:42
[2016-11-19 13:50] LABS: CALCIUM-PROTEIN CORRECTED 7.3 MG/DL (8.5-10.1); POTASSIUM 2.5 MEQ/L (3.5-5.1)
[2016-11-19] MEDS: metroNIDAZOLE 500 MG TAB PO SCH ×2 (14:00→20:54)
[2016-11-19] MEDS ORDERED: POTASSIUM CHLORIDE 10 MEQ CONTROLLED RELEASE TAB PO ONE (14:15)
[2016-11-19] MEDS ORDERED: CALCIUM GLUCONATE INJ 1 GM in DEXTROSE 5% IN WATER 100ML INJ 100 ML IV ONE ×2 (14:15)
--- NOTE | 2016-11-19 14:20 | EKG ---
Date Performed: 11/19/2016 Time Performed: 07:52:46 PTAGE: 76 years EKG: NORMAL Sinus rhythm MARKED LEFT AXIS DEVIATION LEFT BUNDLE BRANCH BLOCK Compared to previous tracing there has been on s erial change and the serial tracings show resolution of the sinus tachycardia ABNORMAL ECG PREVIOUS TRACING : 11/19/2016 04.19 DOCTOR: Kenyatta Trujillo Interpretating Date/Time 11/19/2016 14:19:34
--- NOTE | 2016-11-19 14:20 | EKG ---
Date Performed: 11/18/2016 Time Performed: 19:58:15 PTAGE: 76 years EKG: SINUS TACHYCARDIA LEFT BUNDLE BRANCH BLOCK ABNORMAL ECG Compared to prior tracing the sinus tachycardia is new. There has been some increase in the lateral ST depression associated with Left b undle branch block PREVIOUS TRACING : 11/10/2016 13.48 DOCTOR: Kenyatta Trujillo Interpretating Date/Time 11/19/2016 14:18:46
[2016-11-19] MEDS: POTASSIUM CHLOR 10 MEQ PREMIX 100 ML IV SCH ×3 (14:52→17:00)
[2016-11-19] MEDS: MAGNESIUM SULFATE 1 GM PREMIX 100 ML IV SCH ×3 (15:15→16:15)
--- NOTE | 2016-11-19 15:20 | PD.CONS ---
HPI Service Cardiology Physicians Consult Requested By Dr Gill Reason for Consult Afib RVR Primary Care Physician Desirae Leung MD History of Present Illness The patient is a 76 year old female known to our practice with a history of IHSS s/p myomectomy and left MAZE procedure at [facility] in 2010, atrial fibrillation s/p ablation, Xarelto resumed recently due to acute CVA, hypertension, mild MR, pulmonary hypertension and mild carotid stenosis. The patient called EMS due to progressively worsening weakness. She has a 40 day history of diarrhea and vomiting. She was being followed by Dr. Heller for C. Diff colitis. He BP has been low at home and she has been holding metoprolol and losartan. Xarelto was on hold for a few days due to rectal bleeding. Per medical records when EMS arrrived, she was noted to have rapid heart rate. Heart rate decreased from 222 about 150 with lidocaine. When she arrived at the ER heart rate approximately 150 with a wide complex tachycardia concerning for possible ventricular tachycardia. The patient underwent unsuccessful electrical cardioversion in the ED with 100 150 200 J. Cardiology was notified and started Amiodarone. Metoprolol 1 mg every 5 hours IV with 50 mg oral q12 recommended. Work up reveals elevated troponin. Multiple electrolyte abnormalities. On evaluation today, her HR remains slightly elevated. She denies CP or SOB. She is anxious. (Inna Patiño) Review of Systems Consitutional: COMPLAINS OF: Fatigue, DENIES: Fever, Chills, Weight gain, Weight loss Eyes: DENIES: Amaurosis Fugax, Change in vision HEENT: COMPLAINS OF: Lightheadedness, DENIES: Change in hearing Respiratory: DENIES: See HPI, Cough, Snoring, Shortness of breath, Wheezing, Sputum production Cardiovascular: COMPLAINS OF: Tachycardia, DENIES: See HPI, Chest pain, Palpitations, Syncope Gastrointestinal: COMPLAINS OF: Nausea, Vomiting, Change in bowel habits, Bloody stools Genitourinary: DENIES: Urinary incontinence, Difficulty voiding Integumentary: DENIES: Rash Neurologic: DENIES: Tingling or numbness, Memory problems, Poor Balance, Stroke symptoms Musculoskeletal: DENIES: Joint pain, Muscle pain, Limited range of motion, Back pain Psychiatric: COMPLAINS OF: Anxiety, DENIES: Depression, Sleep disturbances Hematologic: DENIES: Bruising tendencies, Bleeding tendencies Endocrine: DENIES: Weight gain, Weight loss, Thyroid disease (Inna Patiño ) Past Family Social History Allergies: Coded Allergies: Artane (Verified Allergy, Severe, focal dystonia, 11/18/16) Cardizem (Verified Allergy, Severe, achy muscles, blurry vision, 11/18/16) Celebrex (Verified Allergy, Severe, has sulfa in it, 11/18/16) Codeine (Verified Allergy, Severe, rash/hives, 11/18/16) Doxazosin (Verified Allergy, Severe, incontinence, eye itch, 11/18/16) Eliquis (Verified Allergy, Severe, Rash, 11/18/16) Felodipine (Verified Allergy, Severe, swelling of ankles, 11/18/16) Lasix (Verified Allergy, Severe, SULFA BASED, 11/18/16) Lovastatin (Verified Allergy, Severe, achy muscles, 11/18/16) Penicillin (Verified Allergy, Severe, Anaphylaxis, 11/18/16) Primidone (Verified Allergy, Severe, Nausea/Vomiting, 11/18/16) Sulfa (Verified Allergy, Severe, Anaphylaxis, 11/18/16) Norvasc (Verified Allergy, Unknown, unknown, 11/18/16) Vasotec (Verified Allergy, Unknown, unknown, 11/18/16) Ciprofloxacin (Verified Adverse Reaction, Severe, diarrhea, 11/18/16) Past Medical History See HPI Past Surgical History septal myomectomy and left MAZE procedure 2010 heart cath 2010 hemorrhoidectomy 2004 Reported Medications reviewed Active Ordered Medications Current Medications Medications (Trade) Dose Ordered Sig/Ana Route Start Time Stop Time Status Last Admin (NS Flush) 2 ml UNSCH PRN IV FLUSH 11/19/16 02:45 (NS Flush) 2 ml BID IV FLUSH 11/19/16 09:00 (Morphine Inj) 2 mg Q2H PRN IV 11/19/16 02:45 (Pepcid) 20 mg Q12HR PO 11/19/16 09:00 11/19/16 08:45 (Ativan Inj) 0.5 mg Q4H PRN IV 11/19/16 02:45 (Reglan Inj) 10 mg Q6H PRN IV 11/19/16 02:45 Zolpidem Tartrate 5 mg 5 mg HS PRN PO 11/19/16 02:45 (Cordarone Inj/ D5W ([place]) Inj) 250 ml @ 0 mls/hr CONTINUOUS IV 11/19/16 03:00 (Xarelto) 20 mg DAILY PO 11/20/16 09:00 (Cymbalta Dr) 30 mg DAILY PO 11/20/16 09:00 (Flagyl) 500 mg Q8HR PO 11/19/16 14:00 (Protonix) 40 mg DAILY PO 11/20/16 09:00 (Lopressor) 50 mg Q12HR PO 11/19/16 21:00 (Tylenol) 650 mg Q6H PRN PO 11/19/16 11:45 (Zofran Inj) 4 mg Q6H PRN IV 11/19/16 11:45 (Colace) 100 mg BID PO 11/19/16 21:00 (Senokot) 17.2 mg Q12H PRN PO 11/19/16 11:45 Miscellaneous Information 1 Q361D XX 11/19/16 11:45 (Chlorhexidine 2% Cloth) 3 pack Taper DAILY@04 TOP 11/20/16 04:00 11/16/17 03:59 Chlorhexidine Gluconate 3 pack 3 pack UNSCH PRN TOP 11/19/16 11:45 Potassium Chloride 100 ml @ 50 mls/hr Q2H PRN IV 11/19/16 11:45 (KCl 20 Meq Premix Inj) 100 ml @ 50 mls/hr Q2H PRN IV 11/19/16 11:45 Potassium Chloride 40 meq 40 meq UNSCH PRN PO/TUBE 11/19/16 11:45 Potassium Chloride 100 ml @ 25 mls/hr UNSCH PRN IV 11/19/16 11:45 Potassium Chloride 100 ml @ 50 mls/hr Q2H PRN IV 11/19/16 11:45 (Magnesium Sulfate Inj/NS Inj) 100 ml @ 50 mls/hr UNSCH PRN IV 11/19/16 11:45 Magnesium Oxide 800 mg 800 mg UNSCH PRN PO 11/19/16 11:45 (Magnesium Sulfate Inj/NS Inj) 100 ml @ 50 mls/hr UNSCH PRN IV 11/19/16 11:45 Potassium Phosphate 2000 mg 2,000 mg Q4H PRN PO 11/19/16 11:45 (Sodium Phosphate Inj/NS 250 ml Inj) 250 ml @ 42 mls/hr UNSCH PRN IV 11/19/16 11:45 (KCl 40 Meq/30 ml Liq) 40 meq UNSCH PRN PO/TUBE 11/19/16 11:45 Potassium Phosphate 2000 mg 2,000 mg UNSCH PRN PO/TUBE 11/19/16 11:45 (Potassium Phosphate Inj/NS 250 ml Inj) 260 ml @ 42 mls/hr UNSCH PRN IV 11/19/16 11:45 (D50w (Vial) Inj) 25 ml UNSCH PRN IV PUSH 11/19/16 11:45 Glucagon 1 mg 1 mg UNSCH PRN OTHER 11/19/16 11:45 Magnesium Sulfate/ Dextrose 100 ml @ 100 mls/hr Q1H IV 11/19/16 14:15 11/19/16 17:14 (KCl 10 Meq Premix Inj) 100 ml @ 100 mls/hr Q1H IV 11/19/16 15:00 11/19/16 17:59 11/19/16 14:52 Family History non contributory Social History is ill, non smoker, 1-2 glasses of wine per night (Inna Patiño) Physical Exam Vital Signs Vital Signs Date Time Temp Pulse Resp B/P Pulse Ox O2 Delivery O2 Flow Rate FiO2 11/19/16 12:41 94 18 158/88 97 Nasal Cannula 2 11/19/16 10:06 101 18 154/89 100 Nasal Cannula 2 11/19/16 09:41 99 18 155/78 97 Nasal Cannula 2 11/19/16 06:30 100 18 155/90 98 Nasal Cannula 3 11/19/16 03:43 93 18 140/90 96 Nasal Cannula 3 11/19/16 02:34 92 18 140/90 95 Nasal Cannula 3 11/19/16 01:00 96 18 153/65 95 Room Air 3 11/19/16 00:17 94 18 144/64 97 Nasal Cannula 3 11/18/16 23:05 85 18 147/63 98 Nasal Cannula 3 11/18/16 22:06 98.6 97 20 142/77 98 Nasal Cannula 3 11/18/16 21:54 18 98 Nasal Cannula 3 11/18/16 20:04 98 Nasal Cannula 2 11/18/16 19:57 140 30 Physical Exam GENERAL: ill appearing female SKIN: Warm and dry. HEAD: Atraumatic. Normocephalic. EYES: Pupils equal and round. No scleral icterus. No injection or drainage. ENT: No nasal bleeding or discharge. Mucous membranes pink and moist. NECK: Trachea midline. CARDIOVASCULAR: Irregularly irreg, tachycardiac RESPIRATORY: No accessory muscle use. Breath sounds equal bilaterally. GASTROINTESTINAL: Abdomen soft, non distended MUSCULOSKELETAL: Extremities without clubbing, cyanosis, or edema. No obvious deformities. NEUROLOGICAL: Awake and alert. No obvious cranial nerve deficits. Normal speech. PSYCHIATRIC: Appropriate mood and affect; insight and judgment normal. anxious Laboratory Laboratory Tests Test 11/18/16 11/18/16 11/18/16 11/19/16 20:02 20:05 22:45 00:50 Prothrombin Time 16.3 Prothromb Time International 1.5 Ratio Activated Partial 27.8 Thromboplast Time Sodium Level 137 Potassium Level 2.7 Chloride Level 96 Carbon Dioxide Level 18.8 Anion Gap 22 Blood Urea Nitrogen 8 Creatinine 1.05 Estimat Glomerular Filtration 51 Rate Random Glucose 204 Calcium Level 6.6 Protein Corrected Calcium 6.4 Magnesium Level 0.4 Total Bilirubin 0.9 Aspartate Amino Transf 25 (AST/SGOT) Alanine Aminotransferase 14 (ALT/SGPT) Alkaline Phosphatase 56 Total Creatine Kinase 215 Creatine Kinase MB 2.1 Creatine Kinase MB % 1.0 Troponin I 0.06 B-Type Natriuretic Peptide 435 Total Protein 7.6 Albumin 3.4 Lipase 153 White Blood Count 17.4 Red Blood Count 3.76 Hemoglobin 13.2 Hematocrit 38.5 Mean Corpuscular Volume 102.5 Mean Corpuscular Hemoglobin 35.2 Mean Corpuscular Hemoglobin 34.3 Concent Red Cell Distribution Width 12.0 Platelet Count 395 Mean Platelet Volume 7.7 Neutrophils (%) (Auto) 77.6 Lymphocytes (%) (Auto) 13.5 Monocytes (%) (Auto) 8.4 Eosinophils (%) (Auto) 0.1 Basophils (%) (Auto) 0.4 Neutrophils # (Auto) 13.5 Lymphocytes # (Auto) 2.4 Monocytes # (Auto) 1.5 Eosinophils # (Auto) 0.0 Basophils # (Auto) 0.1 CBC Comment AUTO DIFF Differential Total Cells 100 Counted Neutrophils % (Manual) 84 Band Neutrophils % 1 Lymphocytes % 10 Monocytes % 5 Neutrophils # (Manual) 14.8 Differential Comment FINAL DIFF MANUAL Platelet Estimate NORMAL Platelet Morphology Comment NORMAL Spherocytes 1+ Ovalocytes 2+ Lactic Acid Level 10.3 1.4 Urine Color LIGHT-YELLOW Urine Turbidity CLEAR Urine pH 7.0 Urine Specific [place] 1.005 Urine Protein NEG Urine Glucose (UA) NEG Urine Ketones 10 Urine Occult Blood NEG Urine Nitrite NEG Urine Bilirubin NEG Urine Urobilinogen LESS THAN 2.0 Urine Leukocyte Esterase TRACE Urine RBC LESS THAN 1 Urine WBC 5 Urine Squamous Epithelial <1 Cells Urine Transitional Epithelial <1 Cells Urine Renal Epithelial Cells <1 Urine Bacteria RARE Microscopic Urinalysis Comment CATH-CULTURE IND Test 11/19/16 11/19/16 11/19/16 11/19/16 04:20 07:48 12:11 12:43 Troponin I 0.25 0.26 Phosphorus Level 2.5 2.3 Hemoglobin A1c 5.1 Sodium Level 138 Potassium Level 2.5 Chloride Level 101 Carbon Dioxide Level 27.9 Anion Gap 9 Blood Urea Nitrogen 7 Creatinine 0.60 Estimat Glomerular Filtration 97 Rate Random Glucose 117 Calcium Level 7.1 Protein Corrected Calcium 7.3 Magnesium Level 0.9 Total Protein 6.8 Thyroid Stimulating Hormone 0.302 3rd Gen Date/Time Procedure Status Source Growth 11/19/16 00:50 Urine Culture - Preliminary Resulted Urine Catheterized Urine IMMATURE GROWTH - REINCUBATE 11/18/16 20:05 Aerobic Blood Culture - Preliminary Resulted Blood Peripheral NO GROWTH IN 1 DAY 11/18/16 20:05 Anaerobic Blood Culture - Preliminary Resulted Blood Peripheral NO GROWTH IN 1 DAY (Inna Patiño) Result Diagram: 11/18/16200111/19/16 1243 Imaging Last 72 hours Impressions Chest X-Ray 11/18/161999 Signed Impressions: Service Date/Time: November 20:09 - CONCLUSION: No evidence of acute cardiopulmonary disease. Yadiel Goodman MD (Inna Patiño) Assessment and Plan Assessment and Plan ASSESSMENT Recurrent atrial fibrillation with RVR. Will continue with rate control therapy. Patient Xarelto on hold recently, has a history of stroke Chronic LBBB- neg nuclear stress test 08/2016 WCT - did not convert with direct cardioversion. Appears to be atrial fibrillation with RVR with LBBB Elevated troponin- likely demand ischemia Hx IHSS s/p myomectomy 2010 Hx CVA while off Xarelto Hx HTN, recent hypotension on home BP cuff. Patient holding losartan and metoprolol. C.Diff Colitis Multiple electrolyte abnormalities due to above PLAN: Will continue rate control therapy for now with metoprolol. WCT appears to be afib RVR with LBBB Continue Xarelto Electrolyte replacement and IVF Treat C. Diff Will continue to follow with you Patient seen and evaluated by Dr Archuleta. (Inna Patiño) Assessment and Plan The exam, history, and the medical decision-making described in the above note were completed with the assistance of the mid-level provider. I reviewed and agree with the findings presented. I attest that I had a [id number] encounter with the patient on the same day, and personally performed and documented my assessment and findings in the medical record. Overall has severe diarrhoea. Not certain there was VT more likely ST/AFIB and LBBB (Jeffrey Archuleta MD) Inna Patiño Nov 19, 2016 15:20 Jeffrey Archuleta MD Nov 19, 2016 16:20
[2016-11-19] MEDS: INSULIN NovoLIN REGULAR SUPPLEMENTAL SCALE SQ SCH ×2 (16:00→20:43)
[2016-11-19] MEDS: CHLORHEXIDINE GLUCONATE 2 % 1 PACK (2 CLOTHS) TOP SCH (20:44)
[2016-11-19] MEDS: METOPROLOL TARTRATE 50 MG TAB PO SCH (20:54)
[2016-11-19 22:10] LABS: MAGNESIUM 2.1 MG/DL (1.5-2.5); POTASSIUM 3.2 MEQ/L (3.5-5.1)
[2016-11-20] VITALS (14 sets, daily range): BP systolic 101–145; BP diastolic 64–83; PULSE 63–103; RESP 16–23; TEMP 98.1–99; O2SAT 91–99
[2016-11-20 04:05] LABS: AUTOMATED NEUTROPHIL # 10.2 TH/MM3 (1.8-7.7); BASOPHIL % 0.4 % (0.0-2.0); EOSINOPHIL % 0.3 % (0.0-4.0); HEMATOCRIT 30.7 % (35.0-46.0); HEMO FLAGS DIFF FINAL; LYMPH % 10.4 % (9.0-44.0); LYMPHOCYTE # 1.3 TH/MM3 (1.0-4.8); MEAN CELL VOLUME 102.2 FL (80.0-100.0); MEAN CORPUSCULAR HEMOGLOBIN 34.7 PG (27.0-34.0); MEAN CORPUSCULAR HGB CONC 33.9 % (32.0-36.0); MONO % 8.1 % (0.0-8.0); NEUT % 80.8 % (16.0-70.0); PLATELET COUNT 300 TH/MM3 (150-450); RED CELL DISTRIBUTION WIDTH 12.4 % (11.6-17.2); WHITE BLOOD COUNT 12.6 TH/MM3 (4.0-11.0)
[2016-11-20 05:04] LABS: BICARBONATE 28.2 MEQ/L (21.0-32.0); CALCIUM-PROTEIN CORRECTED 7.7 MG/DL (8.5-10.1); HDL CHOLESTEROL 41.1 MG/DL (40.0-60.0); POTASSIUM 3.4 MEQ/L (3.5-5.1); TOTAL BILIRUBIN ADULT 0.8 MG/DL (0.2-1.0)
[2016-11-20] MEDS: INSULIN NovoLIN REGULAR SUPPLEMENTAL SCALE SQ SCH ×4 (05:08→20:18)
[2016-11-20] MEDS: metroNIDAZOLE 500 MG TAB PO SCH ×3 (05:08→20:17)
[2016-11-20] MEDS: POTASSIUM CL 40 MEQ/30 ML LIQ UDC PO/TUBE PRN ×2 (05:42→08:45)
[2016-11-20] MEDS: FAMOTIDINE 20 MG TAB PO SCH ×2 (08:41→20:17)
[2016-11-20] MEDS: RIVAROXABAN 20 MG TAB PO SCH (08:42)
[2016-11-20] MEDS: METOPROLOL TARTRATE 50 MG TAB PO SCH ×2 (08:43→20:17)
[2016-11-20] MEDS: DULoxetine HCl DR 30 MG CAP PO SCH (08:44)
[2016-11-20] MEDS: PANTOPRAZOLE SOD 40 MG DELAYED RELEASE TAB PO SCH (08:44)
[2016-11-20] MEDS: SODIUM CHLORIDE 0.9% FLUSH 5 ML FLUSH IV FLUSH SCH ×2 (08:50→20:17)
[2016-11-20] MEDS: DOCUSATE SODIUM 100 MG CAP PO SCH ×2 (08:52→20:17)
--- NOTE | 2016-11-20 11:05 | PD.CARD.PN ---
Subjective Subjective Remarks Feels better diarrhea better Objective Medications Current Medications Vancomycin HCl 1250 mg/Sodium Chloride 262.5 ml @ 262.5 mls/ hr ONCE STAT IV Last administered on 11/19/16 01:05; Start 11/18/16 at 20:00; Stop 11/18/16 at 20: 59; Status DC Aztreonam 2000 mg/ Sodium Chloride 100 ml @ 200 mls/hr ONCE STAT IV Last administered on 11/18/16 22:09; Start 11/18/16 at 20:00; Stop 11/18/16 at 20:29; Status DC Metronidazole 100 ml @ 100 mls/hr ONCE STAT IV Last administered on 11/18/16 20:32; Start 11/18/16 at 20:00; Stop 11/18/16 at 20:59; Status DC Sodium Chloride 1,000 ml @ 1,000 mls/hr Q1H ONCE IV Last administered on 20:16; Start 11/18/16 at 20:00; Stop 11/18/16 at 20:59; Status DC Sodium Chloride 1,000 ml @ 1,000 mls/hr Q1H ONCE IV Last administered on 20:33; Start 11/18/16 at 20:00; Stop 11/18/16 at 22:16; Status DC Sodium Chloride (NS 1000 ml Inj) 400 ml @ 1,000 mls/hr Q24M ONCE IV Last administered on 11/18/16 21:30; Start 11/18/16 at 20:00; Stop 11/18/16 at 20:23; Status DC Promethazine HCl (Phenergan Inj) 25 mg ONCE ONCE IM Last administered on 20:23; Start 11/18/16 at 20:00; Stop 11/18/16 at 20:05; Status DC Etomidate 20 mg 20 mg ONCE ONCE IV PUSH ; Start 11/18/16 at 20:45; Stop 11/18/16 at 20:46; Status DC Amiodarone HCl 150 mg/Dextrose 100 ml @ 600 mls/hr ONCE ONCE IV ; Start at 20:45; Stop 11/18/16 at 20:54; Status DC Amiodarone HCl 150 mg/Dextrose 100 ml @ 100 mls/hr ONCE ONCE IV Last administered on 11/18/16 21:30; Start 11/18/16 at 20:45; Stop 11/18/16 at 21:44; Status DC Amiodarone HCl 450 mg/Dextrose 250 ml @ 0 mls/hr CONTINUOUS IV Last administered on 11/18/16 22:20; Start 11/18/16 at 20:45; Stop 11/19/16 at 02:58; Status DC Calcium Gluconate 1 gm/Dextrose 110 ml @ 110 mls/hr ONCE ONCE IV Last administered on 11/18/16 22:21; Start 11/18/16 at 21:30; Stop 11/18/16 at 22:29; Status DC Potassium Chloride (KCl 40 Meq Premix Inj) 100 ml @ 25 mls/hr BOLUS ONCE IV ; Start 11/18/16 at 21:30; Stop 11/19/16 at 01:29; Status DC Potassium Chloride 60 meq 60 meq ONCE ONCE PO Last administered on 11/18/16 22 :54; Start 11/18/16 at 22:15; Stop 11/18/16 at 22:17; Status DC Calcium Gluconate 1 gm/Sodium Chloride 110 ml @ 110 mls/hr ONCE ONCE IV Last administered on 11/18/16 23:54; Start 11/18/16 at 22:15; Stop 11/18/16 at 23:14; Status DC Magnesium Sulfate/ Dextrose (Magnesium Sulfate 1 Gm Premix) 100 ml @ 100 mls/ hr Q1H IV Last administered on 11/18/16 23:55; Start 11/18/16 at 22:30; Stop 11/19/16 at 00:29; Status DC IV Flush (NS Flush) 2 ml UNSCH PRN IV FLUSH FLUSH AFTER USING IV ACCESS; Start 11/19/16 at 02:45 IV Flush (NS Flush) 2 ml BID IV FLUSH Last administered on 11/20/16 08:50; Start 11/19/16 at 09:00 Acetaminophen (Tylenol) 650 mg Q6H PRN PO PAIN 1-10 AND/OR FEVER >101F; Start 11/19/16 at 02:45; Stop 11/19/16 at 11:56; Status DC Morphine Sulfate (Morphine Inj) 2 mg Q2H PRN IV PAIN SCALE 6 TO 10; Start at 02:45 Famotidine (Pepcid) 20 mg Q12HR PO Last administered on 11/20/16 08:41; Start 11/19/16 at 09:00 Lorazepam (Ativan Inj) 0.5 mg Q4H PRN IV Agitation/Sedation; Start 11/19/16 at 02:45 Ondansetron HCl (Zofran Inj) 4 mg Q6H PRN IV NAUSEA OR VOMITING; Start 11/19/16 at 02:45; Stop 11/19/16 at 11:57; Status DC Metoclopramide HCl (Reglan Inj) 10 mg Q6H PRN IV NAUSEA OR VOMITING; Start 11/19 at 02:45 Docusate Sodium (Colace) 100 mg BID PO ; Start 11/19/16 at 09:00; Stop 11/19/16 at 11:55; Status DC Zolpidem Tartrate (Ambien) 5 mg HS PRN PO INSOMNIA; Start 11/19/16 at 02:45 Albuterol/ Ipratropium (Duoneb Neb) 1 ampule Q2HR NEB PRN INH WHEEZING; Start 11/19/16 at 02:45; Stop 11/19/16 at 11:57; Status DC Enoxaparin Sodium (Lovenox Inj) 30 mg Q24H SQ Last administered on 11/19/16 06: 31; Start 11/19/16 at 06:00; Stop 11/19/16 at 11:09; Status DC Miscellaneous Information 1 Q361D XX ; Start 11/19/16 at 02:45; Stop 11/19/16 at 11:54; Status DC Chlorhexidine Gluconate (Chlorhexidine 2% Cloth) 3 pack Taper DAILY@04 TOP ; Start 11/19/16 at 04:00; Stop 11/19/16 at 11:54; Status DC Chlorhexidine Gluconate 3 pack 3 pack UNSCH PRN TOP HYGIENIC CARE; Start at 02:45; Stop 11/19/16 at 11:54; Status DC Amiodarone HCl 450 mg/Dextrose 250 ml @ 0 mls/hr CONTINUOUS IV ; Start 11/19/16 at 03:00 Potassium Chloride 100 ml @ 50 mls/hr Q2H PRN IV For Potassium 2.8 - 3.2 mEq/L ; Start 11/19/16 at 05:15; Stop 11/19/16 at 11:53; Status DC Potassium Chloride (KCl 20 Meq Premix Inj) 100 ml @ 50 mls/hr Q2H PRN IV For Potassium 2.8 - 3.2 mEq/L; Start 11/19/16 at 05:15; Stop 11/19/16 at 11:53; Status DC Potassium Chloride 40 meq 40 meq UNSCH PRN PO/TUBE For Potassium 3.3 - 3.5 mEq/ L; Start 11/19/16 at 05:15; Stop 11/19/16 at 11:53; Status DC Potassium Chloride 100 ml @ 25 mls/hr UNSCH PRN IV For Potassium 3.3 - 3.5 mEq /L; Start 11/19/16 at 05:15; Stop 11/19/16 at 11:53; Status DC Potassium Chloride 100 ml @ 50 mls/hr Q2H PRN IV For Potassium 3.3 - 3.5 mEq/L ; Start 11/19/16 at 05:15; Stop 11/19/16 at 11:53; Status DC Magnesium Sulfate/ Sodium Chloride (Magnesium Sulfate Inj/NS Inj) 100 ml @ 50 mls/hr UNSCH PRN IV For Magnesium 0.9 - 1.1 mg/dL; Start 11/19/16 at 05:15; Stop 11/19/16 at 11:53; Status DC Magnesium Oxide 800 mg 800 mg UNSCH PRN PO For Magnesium 1.2 - 1.6 mg/dL; Start 11/19/16 at 05:15; Stop 11/19/16 at 11:53; Status DC Magnesium Sulfate/ Sodium Chloride (Magnesium Sulfate Inj/NS Inj) 100 ml @ 50 mls/hr UNSCH PRN IV For Magnesium 1.2 - 1.6 mg/dL; Start 11/19/16 at 05:15; Stop 11/19/16 at 11:53; Status DC Potassium Phosphate 2000 mg 2,000 mg Q4H PRN PO For Phosphorus < 2.5 mg/dL; Start 11/19/16 at 05:15; Stop 11/19/16 at 11:53; Status DC Sodium Phosphate/ Sodium Chloride (Sodium Phosphate Inj/NS 250 ml Inj) 250 ml @ 42 mls/hr UNSCH PRN IV For Phosphorus < 2.5 mg/dL; Start 11/19/16 at 05:15; Stop 11/19/16 at 11:53; Status DC Potassium Chloride (KCl 40 Meq/30 ml Liq) 40 meq UNSCH PRN PO/TUBE SEE LABEL COMMENTS; Start 11/19/16 at 05:15; Stop 11/19/16 at 11:53; Status DC Potassium Phosphate 2000 mg 2,000 mg UNSCH PRN PO/TUBE SEE LABEL COMMENTS; Start 11/19/16 at 05:15; Stop 11/19/16 at 11:53; Status DC Potassium Phosphate/Sodium Chloride (Potassium Phosphate Inj/NS 250 ml Inj) 260 ml @ 42 mls/hr UNSCH PRN IV SEE LABEL COMMENTS; Start 11/19/16 at 05:15; Stop 11/19/16 at 11:53; Status DC Rivaroxaban (Xarelto) 20 mg DAILY PO Last administered on 11/20/16 08:42; Start 11/20/16 at 09:00 Duloxetine HCl (Cymbalta Dr) 30 mg DAILY PO Last administered on 11/20/16 08:44 ; Start 11/20/16 at 09:00 Duloxetine HCl (Cymbalta Dr) 30 mg ONCE ONCE PO Last administered on 11/19/16 12:00; Start 11/19/16 at 11:15; Stop 11/19/16 at 11:32; Status DC Metronidazole (Flagyl) 500 mg Q8HR PO Last administered on 11/19/16 20:54; Start 11/19/16 at 14:00 Pantoprazole Sodium (Protonix) 40 mg DAILY PO Last administered on 11/20/16 08: 44; Start 11/20/16 at 09:00 Metoprolol Tartrate (Lopressor) 50 mg Q12HR PO Last administered on 11/20/16 08 :43; Start 11/19/16 at 21:00 Acetaminophen (Tylenol) 650 mg Q6H PRN PO PAIN 1-10 AND/OR FEVER >101F; Start 11/19/16 at 11:45 Ondansetron HCl (Zofran Inj) 4 mg Q6H PRN IV NAUSEA OR VOMITING; Start 11/19/16 at 11:45 Docusate Sodium (Colace) 100 mg BID PO Last administered on 11/19/16 20:53; Start 11/19/16 at 21:00 Sennosides (Senokot) 17.2 mg Q12H PRN PO CONSTIPATION; Start 11/19/16 at 11:45 Albuterol/ Ipratropium (Duoneb Neb) 1 ampule Q2HR NEB PRN INH WHEEZING; Start 11/19/16 at 11:45 Miscellaneous Information 1 Q361D XX ; Start 11/19/16 at 11:45 Chlorhexidine Gluconate (Chlorhexidine 2% Cloth) 3 pack Taper DAILY@04 TOP Last administered on 11/19/16 20:44; Start 11/20/16 at 04:00; Stop 11/16/17 at 03 :59 Chlorhexidine Gluconate 3 pack 3 pack UNSCH PRN TOP HYGIENIC CARE; Start at 11:45 Potassium Chloride 100 ml @ 50 mls/hr Q2H PRN IV For Potassium 2.8 - 3.2 mEq/L ; Start 11/19/16 at 11:45 Potassium Chloride (KCl 20 Meq Premix Inj) 100 ml @ 50 mls/hr Q2H PRN IV For Potassium 2.8 - 3.2 mEq/L; Start 11/19/16 at 11:45 Potassium Chloride 40 meq 40 meq UNSCH PRN PO/TUBE For Potassium 3.3 - 3.5 mEq/ L Last administered on 11/20/16 08:45; Start 11/19/16 at 11:45 Potassium Chloride 100 ml @ 25 mls/hr UNSCH PRN IV For Potassium 3.3 - 3.5 mEq /L; Start 11/19/16 at 11:45 Potassium Chloride 100 ml @ 50 mls/hr Q2H PRN IV For Potassium 3.3 - 3.5 mEq/L ; Start 11/19/16 at 11:45 Magnesium Sulfate/ Sodium Chloride (Magnesium Sulfate Inj/NS Inj) 100 ml @ 50 mls/hr UNSCH PRN IV For Magnesium 0.9 - 1.1 mg/dL; Start 11/19/16 at 11:45 Magnesium Oxide 800 mg 800 mg UNSCH PRN PO For Magnesium 1.2 - 1.6 mg/dL; Start 11/19/16 at 11:45 Magnesium Sulfate/ Sodium Chloride (Magnesium Sulfate Inj/NS Inj) 100 ml @ 50 mls/hr UNSCH PRN IV For Magnesium 1.2 - 1.6 mg/dL; Start 11/19/16 at 11:45 Potassium Phosphate 2000 mg 2,000 mg Q4H PRN PO For Phosphorus < 2.5 mg/dL; Start 11/19/16 at 11:45 Sodium Phosphate/ Sodium Chloride (Sodium Phosphate Inj/NS 250 ml Inj) 250 ml @ 42 mls/hr UNSCH PRN IV For Phosphorus < 2.5 mg/dL; Start 11/19/16 at 11:45 Potassium Chloride (KCl 40 Meq/30 ml Liq) 40 meq UNSCH PRN PO/TUBE SEE LABEL COMMENTS; Start 11/19/16 at 11:45 Potassium Phosphate 2000 mg 2,000 mg UNSCH PRN PO/TUBE SEE LABEL COMMENTS; Start 11/19/16 at 11:45 Potassium Phosphate/Sodium Chloride (Potassium Phosphate Inj/NS 250 ml Inj) 260 ml @ 42 mls/hr UNSCH PRN IV SEE LABEL COMMENTS; Start 11/19/16 at 11:45 Dextrose (D50w (Vial) Inj) 25 ml UNSCH PRN IV PUSH HYPOGLYCEMIA-SEE COMMENTS; Start 11/19/16 at 11:45 Glucagon (Glucagon Inj) 1 mg UNSCH PRN OTHER HYPOGLYCEMIA-SEE COMMENTS; Start 11/19/16 at 11:45 Insulin Human Regular 1 1 ACHS SLIDING SCALE SQ ; Start 11/19/16 at 16:00 Magnesium Sulfate/ Dextrose (Magnesium Sulfate 1 Gm Premix) 100 ml @ 100 mls/ hr Q1H IV Last administered on 11/19/16 16:15; Start 11/19/16 at 14:15; Stop 11/19/16 at 17:14; Status DC Potassium Chloride 80 meq 80 meq NOW ONCE PO Last administered on 11/19/16 16: 02; Start 11/19/16 at 14:15; Stop 11/19/16 at 14:18; Status DC Potassium Chloride 100 ml @ 100 mls/hr Q1H IV Last administered on 11/19/16 14 :52; Start 11/19/16 at 15:00; Stop 11/19/16 at 18:06; Status DC Calcium Gluconate/ Dextrose (Calcium Gluconate Inj/D5W 100 ml Inj) 110 ml @ 110 mls/hr ONCE ONCE IV Last administered on 11/19/16 20:54; Start 11/19/16 at 14:15; Stop 11/19/16 at 15:14; Status DC Vital Signs / I&O Vital Signs Date Time Temp Pulse Resp B/P Pulse Ox O2 Delivery O2 Flow Rate FiO2 11/20/16 10:00 82 11/20/16 09:26 95 11/20/16 08:00 98.4 82 16 125/69 95 11/20/16 08:00 82 11/20/16 06:00 103 11/20/16 04:00 98.3 76 19 143/83 93 11/20/16 04:00 103 11/20/16 02:00 103 11/20/16 00:00 103 11/20/16 00:00 98.1 73 20 122/73 99 11/19/16 22:00 103 11/19/16 20:00 99 21 11/19/16 20:00 103 11/19/16 20:00 98.3 103 20 137/77 99 11/19/16 18:00 107 11/19/16 16:49 95 21 11/19/16 16:00 107 11/19/16 16:00 98.0 99 20 162/87 99 11/19/16 12:41 94 18 158/88 97 Nasal Cannula 2 I/O 11/19/16 11/19/16 11/19/16 11/20/16 11/20/16 11/20/16 07:00 15:00 23:00 07:00 15:00 23:00 Intake Total 325 ml 225 ml Output Total 700 ml 250 ml 175 ml Balance -700 ml 75 ml 50 ml Intake IV Total 325 ml 225 ml Output Urine Total 700 ml 250 ml 175 ml # Voids 2 1 2 Physical Exam GENERAL APPEARANCE: This 76 year old patient is a well-developed, well-nourished , man in no acute distress. SKIN: Skin is warm and dry without erythema, swelling or exudate. There is good turgor. No tenting. HEENT: Throat is clear without erythema, swelling or exudate. NECK: Supple and non tender with full range of motion without discomfort. LUNGS: Equal and bilateral breath sounds without wheezes, rales or rhonchi. CHEST: The chest wall is without retractions or use of accessory muscles. HEART: Has a regular rate and rhythm without murmur, gallops, click or rub. ABDOMEN: Soft, non tender with positive active bowel sounds. No rebound tenderness. No masses, no hepatosplenomegaly. EXTREMITIES: Without cyanosis, clubbing or edema. Equal 2+ distal pulses and 2 second capillary refill noted. NEUROLOGIC: The patient is alert, aware, non suicidal Laboratory Laboratory Tests Test 11/19/16 11/19/16 11/19/16 11/19/16 12:11 12:43 14:45 21:09 Hemoglobin A1c 5.1 % Sodium Level 138 MEQ/L Potassium Level 2.5 MEQ/L 3.2 MEQ/L Chloride Level 101 MEQ/L Carbon Dioxide Level 27.9 MEQ/L Anion Gap 9 MEQ/L Blood Urea Nitrogen 7 MG/DL Creatinine 0.60 MG/DL Estimat Glomerular Filtration 97 ML/MIN Rate Random Glucose 117 MG/DL Calcium Level 7.1 MG/DL Protein Corrected Calcium 7.3 MG/DL Phosphorus Level 2.3 MG/DL Magnesium Level 0.9 MG/DL 2.1 MG/DL Total Protein 6.8 GM/DL Thyroid Stimulating Hormone 0.302 uIU/ML 3rd Gen Nasal Screen MRSA (PCR) NEGATIVE Test 11/20/16 03:40 White Blood Count 12.6 TH/MM3 Red Blood Count 3.00 MIL/MM3 Hemoglobin 10.4 GM/DL Hematocrit 30.7 % Mean Corpuscular Volume 102.2 FL Mean Corpuscular Hemoglobin 34.7 PG Mean Corpuscular Hemoglobin 33.9 % Concent Red Cell Distribution Width 12.4 % Platelet Count 300 TH/MM3 Mean Platelet Volume 7.3 FL Neutrophils (%) (Auto) 80.8 % Lymphocytes (%) (Auto) 10.4 % Monocytes (%) (Auto) 8.1 % Eosinophils (%) (Auto) 0.3 % Basophils (%) (Auto) 0.4 % Neutrophils # (Auto) 10.2 TH/MM3 Lymphocytes # (Auto) 1.3 TH/MM3 Monocytes # (Auto) 1.0 TH/MM3 Eosinophils # (Auto) 0.0 TH/MM3 Basophils # (Auto) 0.0 TH/MM3 CBC Comment DIFF FINAL Differential Comment Sodium Level 138 MEQ/L Potassium Level 3.4 MEQ/L Chloride Level 102 MEQ/L Carbon Dioxide Level 28.2 MEQ/L Anion Gap 8 MEQ/L Blood Urea Nitrogen 8 MG/DL Creatinine 0.54 MG/DL Estimat Glomerular Filtration 109 ML/MIN Rate Random Glucose 110 MG/DL Calcium Level 7.2 MG/DL Protein Corrected Calcium 7.7 MG/DL Phosphorus Level 2.1 MG/DL Magnesium Level 2.0 MG/DL Total Bilirubin 0.8 MG/DL Aspartate Amino Transf 38 U/L (AST/SGOT) Alanine Aminotransferase 18 U/L (ALT/SGPT) Alkaline Phosphatase 43 U/L Troponin I 0.13 NG/ML Total Protein 6.1 GM/DL Albumin 2.8 GM/DL Triglycerides Level 69 MG/DL Cholesterol Level 113 MG/DL LDL Cholesterol 58 MG/DL HDL Cholesterol 41.1 MG/DL Cholesterol/HDL Ratio 2.74 RATIO Assessment and Plan Assessment and Plan K replenished getting better had LBBB with possible afib Jeffrey Archuleta MD Nov 20, 2016 11:05
[2016-11-20] MEDS ORDERED: POTASSIUM CHLORIDE 10 MEQ CONTROLLED RELEASE TAB PO ONE (11:30)
[2016-11-20] MEDS ORDERED: MAGNESIUM SULFATE 1 GM PREMIX 100 ML IV ONE (11:30)
--- NOTE | 2016-11-20 11:53 | HHI.CCPN ---
Subjective Remarks/Hospital Course 76-year-old female with a history of left bundle-branch block, hypertension, A. fib on Xarelto, mitral regurgitation and septal rhinoplasty arrives following one day of vomiting and generalized weakness. At a scene EMS observed particular tachycardia and administered lidocaine. Her heart rate decreased from 222 about 150. EMS also observed diaphoresis on scene which improved marginally en route to the ER. In the ER the patient denies chest pain however reports severe nausea and has vomited once. Heart rate approximately 150 with a wide complex tachycardia concerning for possible ventricular tachycardia. The patient underwent electrical cardioversion in the ED with 100 150 200 J. Cardiology was notified and started Amiodarone. Metoprolol 1 mg every 5 hours IV with 50 mg oral q12 recommended. Azactam and Flagyl started as the patient has a known history of C. difficile colitis as well as leukocytosis and a lactic acidosis of 10. Patient received about 1-1/2 L crystalloid. She refused a right IJ central line and is now admitted to ICU. 2/3: Currently in normal sinus rhythm. Denies chest pain or shortness of breath currently. On nasal cannula answering questions appropriately. Subjective 2/4: Currently normal sinus rhythm. Denies chest pain or shortness of breath. Complaining of excessive tearing in right eye. \No bowel movement. Objective Vital Signs Date Time Temp Pulse Resp B/P Pulse Ox O2 Delivery O2 Flow Rate FiO2 11/20/16 10:00 82 11/20/16 09:26 95 11/20/16 08:00 98.4 16 125/69 11/19/16 20:00 21 11/19/16 12:41 Nasal Cannula 2 Intake and Output 11/19/16 11/19/16 11/20/16 08:00 16:00 00:00 Intake Total 325 ml Output Total 700 ml 250 ml Balance -700 ml 75 ml Result Diagram: 11/20/16 0340 11/20/16 0340 Other Results Microbiology Date/Time Procedure Status Source Growth 11/19/16 00:50 Urine Culture - Preliminary Resulted Urine Catheterized Urine IMMATURE GROWTH - REINCUBATE 11/18/16 20:05 Aerobic Blood Culture - Preliminary Resulted Blood Peripheral NO GROWTH IN 2 DAYS 11/18/16 20:05 Anaerobic Blood Culture - Preliminary Resulted Blood Peripheral NO GROWTH IN 2 DAYS Imaging Last Impressions Chest X-Ray 11/18/161999 Signed Impressions: Service Date/Time: November 20:09 - CONCLUSION: No evidence of acute cardiopulmonary disease. Yadiel Goodman MD Objective Remarks GENERAL: 76-year-old female, currently resting in bed in no acute distress SKIN: Warm and dry. No rash HEAD: Normocephalic. EYES: No scleral icterus. No injection or drainage. NECK: Supple, trachea midline. No JVD or lymphadenopathy. CARDIOVASCULAR: Regular rate and rhythm. S1, S2. No S4. 2/6 systolic murmur clements sternal. No gallops or clicks or rubs. RESPIRATORY: Breath sounds equal bilaterally. No accessory muscle use. GASTROINTESTINAL: Abdomen soft, non-tender, nondistended. Positive bowel sounds are appreciated MUSCULOSKELETAL: No significant peripheral edema. BACK: Nontender without obvious deformity. No CVA tenderness. Urinary Catheter: No Assessment to: Continue Vascular Central Line Catheter: No Assessment to: Continue A/P Problem List: (1) Hypertensive emergency ICD Code: I10 Status: Acute (2) Dehydration ICD Code: E86.0 Status: Acute (3) A-fib ICD Code: I48.91 Status: Chronic (4) Anxiety ICD Code: F41.9 Status: Chronic (5) Nausea & vomiting ICD Code: R11.2 Status: Resolved (6) Hypokalemia ICD Code: E87.6 Status: Acute (7) Hypocalcemia ICD Code: E83.51 Status: Acute (8) Elevated troponin ICD Code: R79.89 Status: Acute Assessment and Plan Neuro/Psych: History of right pontine CVA Bilateral cataracts Claustrophobia Fibromyalgia Acetaminophen for fever Continue Cymbalta 30 milligrams by mouth daily. CV: A. fib with RVR History of IHSS - septal myotomy/left maze [address] Archibald at [facility] Hypertension Dyslipidemia Carotid stenosis MVR Status post cardioversion/initiation of amiodarone drip 2-D echo 06/22 revealed EF 50%. No regional wall motion abnormality. Mild AR, MR and TR. Left atrial enlargement. NATHALIE [address] Archuleta consult his/her medical donation professional Noted recommend amiodarone drip/metoprolol 50 mg twice a day Serial troponins currently 0.26. Resp: Acute respiratory insufficiency Nasal cannula to maintain saturations greater or equal to 92% IS while awake Chest x-ray on admission reveals no acute cardio pulmonary findings GI: Gastroesophageal reflux disease Nausea/vomiting History diverticulosis On heart healthy diet. On Prilosec 20 mg daily at home. Hospital substitution Protonix 40 mg by mouth daily Colace/as needed Senokot for bowel regimen : Meraz if indicated for accurate I's and O's in a critically ill patient Endo: Hyperglycemia of critical illness Sliding-scale insulin if indicated. Check TSH Renal: Monitor urine output closely. Accurate I/os. Heme: Leukocytosis Macrocytosis Hypercoagulable state Xarelto use Resume Xarelto 20 mg by mouth daily. Monitor trends with CBC. History of EtOH use one to 2 glasses of wine daily ID: C. difficile positive UTI Continue Flagyl 500 milligrams 3 times a day On aztreonam 1 g IV every 8 hours for UTI. Blood cultures/urine cultures pending FEN: Hypokalemia Hypocalcemia Hypomagnesium Recheck BMP Replace electrolytes as clinically indicated. Goal magnesium of 2.0. Potassium of 4.0. MSK: History of carpal tunnel syndrome PT/OT evaluate and treat. Access - Utilize peripheral IV. Central line if indicated Prophylaxis - GI - Protonix - DVT - Xarelto Jim Gill MD Nov 20, 2016 11:53
--- NOTE | 2016-11-20 11:56 | HHI.CCPN ---
Subjective Remarks/Hospital Course 76-year-old female with a history of left bundle-branch block, hypertension, A. fib on Xarelto, mitral regurgitation and septal rhinoplasty arrives following one day of vomiting and generalized weakness. At a scene EMS observed particular tachycardia and administered lidocaine. Her heart rate decreased from 222 about 150. EMS also observed diaphoresis on scene which improved marginally en route to the ER. In the ER the patient denies chest pain however reports severe nausea and has vomited once. Heart rate approximately 150 with a wide complex tachycardia concerning for possible ventricular tachycardia. The patient underwent electrical cardioversion in the ED with 100 150 200 J. Cardiology was notified and started Amiodarone. Metoprolol 1 mg every 5 hours IV with 50 mg oral q12 recommended. Azactam and Flagyl started as the patient has a known history of C. difficile colitis as well as leukocytosis and a lactic acidosis of 10. Patient received about 1-1/2 L crystalloid. She refused a right IJ central line and is now admitted to ICU. 2/3: Currently in normal sinus rhythm. Denies chest pain or shortness of breath currently. On nasal cannula answering questions appropriately. Subjective 2/4: Currently normal sinus rhythm. Denies chest pain or shortness of breath. Complaining of excessive tearing in right eye. \No bowel movement. Objective Vital Signs Date Time Temp Pulse Resp B/P Pulse Ox O2 Delivery O2 Flow Rate FiO2 11/20/16 10:00 82 11/20/16 09:26 95 11/20/16 08:00 98.4 16 125/69 11/19/16 20:00 21 11/19/16 12:41 Nasal Cannula 2 Intake and Output 11/19/16 11/19/16 11/20/16 08:00 16:00 00:00 Intake Total 325 ml Output Total 700 ml 250 ml Balance -700 ml 75 ml Result Diagram: 11/20/16 0340 11/20/16 034 Imaging Last Impressions Chest X-Ray 11/18/161999 Signed Impressions: Service Date/Time: November 20:09 - CONCLUSION: No evidence of acute cardiopulmonary disease. Yadiel Goodman MD Objective Remarks GENERAL: 76-year-old female, currently resting in bed in no acute distress SKIN: Warm and dry. No rash HEAD: Normocephalic. EYES: No scleral icterus. No injection or drainage. NECK: Supple, trachea midline. No JVD or lymphadenopathy. CARDIOVASCULAR: Regular rate and rhythm. S1, S2. No S4. 2/6 systolic murmur clements sternal. No gallops or clicks or rubs. RESPIRATORY: Breath sounds equal bilaterally. No accessory muscle use. GASTROINTESTINAL: Abdomen soft, non-tender, nondistended. Positive bowel sounds are appreciated MUSCULOSKELETAL: No significant peripheral edema. BACK: Nontender without obvious deformity. No CVA tenderness. A/P Problem List: (1) Hypertensive emergency ICD Code: I10 Status: Acute (2) Dehydration ICD Code: E86.0 Status: Acute (3) A-fib ICD Code: I48.91 Status: Chronic (4) Anxiety ICD Code: F41.9 Status: Chronic (5) Nausea & vomiting ICD Code: R11.2 Status: Resolved (6) Hypokalemia ICD Code: E87.6 Status: Acute (7) Hypocalcemia ICD Code: E83.51 Status: Acute (8) Elevated troponin ICD Code: R79.89 Status: Acute Assessment and Plan Neuro/Psych: History of right pontine CVA Bilateral cataracts Claustrophobia Fibromyalgia Acetaminophen for fever Continue Cymbalta 30 milligrams by mouth daily for fibromyalgia. CV: A. fib with RVR History of IHSS - septal myotomy/left maze [address] Archibald at [facility] Hypertension Dyslipidemia Carotid stenosis MVR Status post cardioversion/initiation of amiodarone drip 2-D echo 06/22 revealed EF 50%. No regional wall motion abnormality. Mild AR, MR and TR. Left atrial enlargement. NATHALIE [address] Archuleta consult/her nitro worker Noted recommend amiodarone drip/metoprolol 50 mg twice a day Serial troponins currently trending downward Resp: Acute respiratory insufficiency Nasal cannula to maintain saturations greater or equal to 92% IS while awake Chest x-ray on admission reveals no acute cardio pulmonary findings GI: Gastroesophageal reflux disease Nausea/vomiting History diverticulosis On heart healthy diet. On Prilosec 20 mg daily at home. Hospital substitution Protonix 40 mg by mouth daily Colace/as needed Senokot for bowel regimen : Meraz if indicated for accurate I's and O's in a critically ill patient Endo: Hyperglycemia of critical illness Sliding-scale insulin if indicated. TSH low at 0.3. Check free T4/T3 Renal: Monitor urine output closely. Accurate I/os. Heme: Leukocytosis Macrocytic anemia Hypercoagulable state Xarelto use Resume Xarelto 20 mg by mouth daily. Monitor trends with CBC. History of EtOH use one to 2 glasses of wine daily ID: C. difficile positive UTI Continue Flagyl 500 milligrams 3 times a day On aztreonam 1 g IV every 8 hours for UTI. Check C. difficile 2/3 Blood cultures/urine cultures pending FEN: Hypokalemia Hypocalcemia Hypomagnesium Recheck BMP Replace electrolytes as clinically indicated. Goal magnesium of 2.0. Potassium of 4.0. Received 60 mEq KCl, 1 g calcium gluconate and 1 g magnesium sulfate. Recheck this afternoon and in a.m. MSK: History of carpal tunnel syndrome PT/OT evaluate and treat. Access - Utilize peripheral IV. Central line if indicated Prophylaxis - GI - Protonix - DVT - Xarelto Critical Care: The total critical care time was 35 minutes. Time to perform other separately billable procedures was not included in the critical care time. Jim Gill MD Nov 20, 2016 11:56
[2016-11-20] MEDS: AMIODARONE INJ 450 MG in DEXTROSE 5% IN WATE(EXCEL) INJ 241 ML IV SCH ×2 (13:08)
[2016-11-20] MEDS: ARTIFICIAL TEARS OPTH SOLN 15 ML BTL EACH EYE SCH (20:18)
[2016-11-20] MEDS: MORPHINE SULFATE 4 MG/ML INJ IV PRN (20:48)
[2016-11-20 21:15] LABS: C. DIFF TOXIN PCR POSITIVE (NEGATIVE)
[2016-11-20 21:17] LABS: C. DIFF EPI 027 PRESUMPTIVE NEGATIVE (NEGATIVE)
[2016-11-21] VITALS (12 sets, daily range): BP systolic 123–150; BP diastolic 62–87; PULSE 58–88; RESP 18–25; TEMP 97.8–98.5; O2SAT 95–97
[2016-11-21] MEDS: CHLORHEXIDINE GLUCONATE 2 % 1 PACK (2 CLOTHS) TOP SCH (04:00)
[2016-11-21] MEDS: AMIODARONE INJ 450 MG in DEXTROSE 5% IN WATE(EXCEL) INJ 241 ML IV SCH ×2 (04:27)
[2016-11-21 05:53] LABS: AUTOMATED NEUTROPHIL # 11.9 TH/MM3 (1.8-7.7); BASOPHIL % 0.2 % (0.0-2.0); EOSINOPHIL % 0.2 % (0.0-4.0); HEMATOCRIT 30.5 % (35.0-46.0); HEMO FLAGS DIFF FINAL; LYMPH % 6.9 % (9.0-44.0); MEAN CELL VOLUME 102.5 FL (80.0-100.0); MEAN CORPUSCULAR HEMOGLOBIN 35.1 PG (27.0-34.0); MEAN CORPUSCULAR HGB CONC 34.3 % (32.0-36.0); MONO % 6.7 % (0.0-8.0); PLATELET COUNT 298 TH/MM3 (150-450); RED BLOOD COUNT 2.97 MIL/MM3 (4.00-5.30); RED CELL DISTRIBUTION WIDTH 12.2 % (11.6-17.2); WHITE BLOOD COUNT 13.8 TH/MM3 (4.0-11.0)
[2016-11-21 06:00] LABS: BICARBONATE 25.6 MEQ/L (21.0-32.0); FREE T3 1.67 PG/ML (2.18-3.98); FREE T4 1.59 NG/DL (0.76-1.46); POTASSIUM 4.3 MEQ/L (3.5-5.1)
[2016-11-21 06:16] LABS: CALCIUM-PROTEIN CORRECTED 7.9 MG/DL (8.5-10.1)
[2016-11-21] MEDS: INSULIN NovoLIN REGULAR SUPPLEMENTAL SCALE SQ SCH ×4 (06:19→21:00)
[2016-11-21] MEDS: metroNIDAZOLE 500 MG TAB PO SCH ×3 (06:19→21:15)
[2016-11-21] MEDS: METOPROLOL TARTRATE 50 MG TAB PO SCH ×2 (08:01→21:15)
[2016-11-21] MEDS: FAMOTIDINE 20 MG TAB PO SCH ×2 (08:01→21:15)
[2016-11-21] MEDS: RIVAROXABAN 20 MG TAB PO SCH (08:01)
[2016-11-21] MEDS: PANTOPRAZOLE SOD 40 MG DELAYED RELEASE TAB PO SCH (08:01)
[2016-11-21] MEDS: DULoxetine HCl DR 30 MG CAP PO SCH (08:01)
[2016-11-21] MEDS: SODIUM CHLORIDE 0.9% FLUSH 5 ML FLUSH IV FLUSH SCH ×2 (09:00→22:12)
[2016-11-21] MEDS: ARTIFICIAL TEARS OPTH SOLN 15 ML BTL EACH EYE SCH ×2 (09:00→22:12)
[2016-11-21] MEDS: DOCUSATE SODIUM 100 MG CAP PO SCH ×2 (09:00→21:00)
--- NOTE | 2016-11-21 11:37 | PD.CARD.PN ---
Subjective Subjective Remarks Continues to have loose stools. NSR with LBBB. On amio drip. BP stable. ( Inna Patiño) Objective Medications Current Medications Medications (Trade) Dose Ordered Sig/Ana Route Start Time Stop Time Status Last Admin (NS Flush) 2 ml UNSCH PRN IV FLUSH 11/19/16 02:45 (NS Flush) 2 ml BID IV FLUSH 11/19/16 09:00 11/20/16 08:50 (Morphine Inj) 2 mg Q2H PRN IV 11/19/16 02:45 11/20/16 20:48 (Pepcid) 20 mg Q12HR PO 11/19/16 09:00 11/21/16 08:01 (Ativan Inj) 0.5 mg Q4H PRN IV 11/19/16 02:45 (Reglan Inj) 10 mg Q6H PRN IV 11/19/16 02:45 Zolpidem Tartrate 5 mg 5 mg HS PRN PO 11/19/16 02:45 (Cordarone Inj/ D5W (P[place]ison) Inj) 250 ml @ 0 mls/hr CONTINUOUS IV 11/19/16 03:00 11/21/16 04:27 (Xarelto) 20 mg DAILY PO 11/20/16 09:00 11/21/16 08:01 (Cymbalta Dr) 30 mg DAILY PO 11/20/16 09:00 11/21/16 08:01 (Flagyl) 500 mg Q8HR PO 11/19/16 14:00 11/21/16 06:19 (Protonix) 40 mg DAILY PO 11/20/16 09:00 11/21/16 08:01 (Lopressor) 50 mg Q12HR PO 11/19/16 21:00 11/21/16 08:01 (Tylenol) 650 mg Q6H PRN PO 11/19/16 11:45 (Zofran Inj) 4 mg Q6H PRN IV 11/19/16 11:45 (Colace) 100 mg BID PO 11/19/16 21:00 11/19/16 20:53 (Senokot) 17.2 mg Q12H PRN PO 11/19/16 11:45 Miscellaneous Information 1 Q361D XX 11/19/16 11:45 (Chlorhexidine 2% Cloth) 3 pack Taper DAILY@04 TOP 11/20/16 04:00 11/16/17 03:59 11/21/16 04:00 Chlorhexidine Gluconate 3 pack 3 pack UNSCH PRN TOP 11/19/16 11:45 Potassium Chloride 100 ml @ 50 mls/hr Q2H PRN IV 11/19/16 11:45 (KCl 20 Meq Premix Inj) 100 ml @ 50 mls/hr Q2H PRN IV 11/19/16 11:45 Potassium Chloride 40 meq 40 meq UNSCH PRN PO/TUBE 11/19/16 11:45 11/20/16 08:45 Potassium Chloride 100 ml @ 25 mls/hr UNSCH PRN IV 11/19/16 11:45 Potassium Chloride 100 ml @ 50 mls/hr Q2H PRN IV 11/19/16 11:45 (Magnesium Sulfate Inj/NS Inj) 100 ml @ 50 mls/hr UNSCH PRN IV 11/19/16 11:45 Magnesium Oxide 800 mg 800 mg UNSCH PRN PO 11/19/16 11:45 (Magnesium Sulfate Inj/NS Inj) 100 ml @ 50 mls/hr UNSCH PRN IV 11/19/16 11:45 Potassium Phosphate 2000 mg 2,000 mg Q4H PRN PO 11/19/16 11:45 (Sodium Phosphate Inj/NS 250 ml Inj) 250 ml @ 42 mls/hr UNSCH PRN IV 11/19/16 11:45 (KCl 40 Meq/30 ml Liq) 40 meq UNSCH PRN PO/TUBE 11/19/16 11:45 Potassium Phosphate 2000 mg 2,000 mg UNSCH PRN PO/TUBE 11/19/16 11:45 (Potassium Phosphate Inj/NS 250 ml Inj) 260 ml @ 42 mls/hr UNSCH PRN IV 11/19/16 11:45 (D50w (Vial) Inj) 25 ml UNSCH PRN IV PUSH 11/19/16 11:45 (Glucagon Inj) 1 mg UNSCH PRN OTHER 11/19/16 11:45 (Tears Naturale Opth Soln) 1 drop BID EACH EYE 11/20/16 13:00 11/20/16 20:18 Vital Signs / I&O Vital Signs Date Time Temp Pulse Resp B/P Pulse Ox O2 Delivery O2 Flow Rate FiO2 11/21/16 10:00 60 11/21/16 09:14 95 11/21/16 08:00 98.0 66 21 149/82 96 11/21/16 08:00 60 11/21/16 06:00 83 11/21/16 04:00 98.4 61 18 128/74 97 11/21/16 04:00 61 11/21/16 02:00 58 11/21/16 00:00 98.4 59 21 123/62 96 11/21/16 00:00 59 11/20/16 22:00 66 11/20/16 20:00 98.1 73 23 145/83 96 11/20/16 20:00 73 11/20/16 19:15 98 21 11/20/16 18:00 78 11/20/16 16:00 98.2 65 16 125/71 91 11/20/16 16:00 65 11/20/16 14:00 63 11/20/16 12:00 79 11/20/16 12:00 99.0 78 16 101/64 91 I/O 11/20/16 11/20/16 11/20/16 11/21/16 11/21/16 11/21/16 07:00 15:00 23:00 07:00 15:00 23:00 Intake Total 225 ml 673 ml 624 ml 144 ml Output Total 175 ml 300 ml Balance 50 ml 373 ml 624 ml 144 ml Intake Oral 480 ml 480 ml IV Total 225 ml 193 ml 144 ml 144 ml Output Urine Total 175 ml 300 ml # Voids 2 1 # Bowel Movements 1 Physical Exam GENERAL: Sitting up on side of bed, no acute distress. SKIN: Warm and dry. HEAD: Normocephalic. EYES: No scleral icterus. No injection or drainage. NECK: Supple, trachea midline. No JVD or lymphadenopathy. CARDIOVASCULAR: Regular rate and rhythm RESPIRATORY: Breath sounds equal bilaterally. No accessory muscle use. GASTROINTESTINAL: Abdomen soft, non-tender, nondistended. MUSCULOSKELETAL: No cyanosis, or edema. BACK: Nontender without obvious deformity. No CVA tenderness. Laboratory Laboratory Tests Test 11/20/16 11/20/16 11/21/16 18:45 18:47 05:15 Stool C. difficile Toxin (PCR) POSITIVE Stl C. difficile Toxin PRESUMPTIVE Epiderm 027 NEGATIVE Potassium Level 4.2 MEQ/L 4.3 MEQ/L White Blood Count 13.8 TH/MM3 Red Blood Count 2.97 MIL/MM3 Hemoglobin 10.4 GM/DL Hematocrit 30.5 % Mean Corpuscular Volume 102.5 FL Mean Corpuscular Hemoglobin 35.1 PG Mean Corpuscular Hemoglobin 34.3 % Concent Red Cell Distribution Width 12.2 % Platelet Count 298 TH/MM3 Mean Platelet Volume 7.1 FL Neutrophils (%) (Auto) 86.0 % Lymphocytes (%) (Auto) 6.9 % Monocytes (%) (Auto) 6.7 % Eosinophils (%) (Auto) 0.2 % Basophils (%) (Auto) 0.2 % Neutrophils # (Auto) 11.9 TH/MM3 Lymphocytes # (Auto) 1.0 TH/MM3 Monocytes # (Auto) 0.9 TH/MM3 Eosinophils # (Auto) 0.0 TH/MM3 Basophils # (Auto) 0.0 TH/MM3 CBC Comment DIFF FINAL Differential Comment Sodium Level 136 MEQ/L Chloride Level 102 MEQ/L Carbon Dioxide Level 25.6 MEQ/L Anion Gap 8 MEQ/L Blood Urea Nitrogen 16 MG/DL Creatinine 0.60 MG/DL Estimat Glomerular Filtration 97 ML/MIN Rate Random Glucose 135 MG/DL Calcium Level 7.4 MG/DL Protein Corrected Calcium 7.9 MG/DL Phosphorus Level 2.3 MG/DL Magnesium Level 2.0 MG/DL Total Protein 6.2 GM/DL Free Thyroxine 1.59 NG/DL Free Triiodothyronine (T3) 1.67 PG/ML pg/dL Imaging Last 72 hours Impressions Chest X-Ray 11/18/161999 Signed Impressions: Service Date/Time: November 20:09 - CONCLUSION: No evidence of acute cardiopulmonary disease. Yadiel Goodman MD (Inna Patiño) Assessment and Plan Assessment and Plan ASSESSMENT Recurrent atrial fibrillation with RVR. No NSR. Patient Xarelto. Has a history of stroke Chronic LBBB- neg nuclear stress test 08/2016 WCT - did not convert with direct cardioversion. Appears to be atrial fibrillation with RVR with LBBB Elevated troponin- likely demand ischemia Hx IHSS s/p myomectomy 2010 Hx CVA while off Xarelto Hx HTN,recent hypotension due to dehydration C.Diff Colitis Hypokalemia on admission PLAN: Amio IV-->PO today Continue Xarelto Monitor and optimize electrolytes Patient concerned about dietary influence of cdiff, will consult dietitian for discussion Treat C. Diff Will continue to follow with you Patient seen and evaluated by Dr Archuleta. (Inna Patiño) Assessment and Plan The exam, history, and the medical decision-making described in the above note were completed with the assistance of the mid-level provider. I reviewed and agree with the findings presented. I attest that I had a [id number] encounter with the patient on the same day, and personally performed and documented my assessment and findings in the medical record. Recurrent Afib and history of IHSS, treat cdiff (Jeffrey Archuleta MD) Inna Patiño Nov 21, 2016 11:37 Jeffrey Archuleta MD Nov 23, 2016 14:58
--- NOTE | 2016-11-21 11:52 | HHI.CCPN ---
Subjective Remarks/Hospital Course 76-year-old female with a history of left bundle-branch block, hypertension, A. fib on Xarelto, mitral regurgitation and septal rhinoplasty arrives following one day of vomiting and generalized weakness. At a scene EMS observed particular tachycardia and administered lidocaine. Her heart rate decreased from 222 about 150. EMS also observed diaphoresis on scene which improved marginally en route to the ER. In the ER the patient denies chest pain however reports severe nausea and has vomited once. Heart rate approximately 150 with a wide complex tachycardia concerning for possible ventricular tachycardia. The patient underwent electrical cardioversion in the ED with 100 150 200 J. Cardiology was notified and started Amiodarone. Metoprolol 1 mg every 5 hours IV with 50 mg oral q12 recommended. Azactam and Flagyl started as the patient has a known history of C. difficile colitis as well as leukocytosis and a lactic acidosis of 10. Patient received about 1-1/2 L crystalloid. She refused a right IJ central line and is now admitted to ICU. 23: Currently in normal sinus rhythm. Denies chest pain or shortness of breath currently. On nasal cannula answering questions appropriately. 24: Currently normal sinus rhythm. Denies chest pain or shortness of breath. Complaining of excessive tearing in right eye. \No bowel movement Subjective 11/21: Afebrile. Remains in normal sinus rhythm. Transition amiodarone drip to oral amiodarone today. One Bowel movement. Objective Vital Signs Date Time Temp Pulse Resp B/P Pulse Ox O2 Delivery O2 Flow Rate FiO2 11/21/16 10:00 60 11/21/16 09:14 95 11/21/16 08:00 98.0 21 149/82 11/20/16 19:15 21 11/19/16 12:41 Nasal Cannula 2 Intake and Output 11/20/16 11/20/16 11/21/16 08:00 16:00 00:00 Intake Total 225 ml 673 ml 624 ml Output Total 175 ml 300 ml Balance 50 ml 373 ml 624 ml Result Diagram: 11/21/16 0515 11/21/16 0515 Other Results Microbiology Date/Time Procedure Status Source Growth 11/19/16 00:50 Urine Culture - Final Complete Urine Catheterized Urine 10-50,000 CFU/ML MIXED GRAM POSITIVE ... 11/18/16 20:05 Aerobic Blood Culture - Preliminary Resulted Blood Peripheral NO GROWTH IN 3 DAYS 11/18/16 20:05 Anaerobic Blood Culture - Preliminary Resulted Blood Peripheral NO GROWTH IN 3 DAYS Imaging Last Impressions Chest X-Ray 11/18/161999 Signed Impressions: Service Date/Time: November 20:09 - CONCLUSION: No evidence of acute cardiopulmonary disease. Yadiel Goodman MD Objective Remarks GENERAL: 76-year-old female, currently resting in bed in no acute distress SKIN: Warm and dry. No rash HEAD: Normocephalic. EYES: No scleral icterus. No injection or drainage. NECK: Supple, trachea midline. No JVD or lymphadenopathy. CARDIOVASCULAR: Regular rate and rhythm. S1, S2. No S4. 2/6 systolic murmur clements sternal. No gallops or clicks or rubs. RESPIRATORY: Breath sounds equal bilaterally. No accessory muscle use. GASTROINTESTINAL: Abdomen soft, non-tender, nondistended. Positive bowel sounds are appreciated MUSCULOSKELETAL: No significant peripheral edema. BACK: Nontender without obvious deformity. No CVA tenderness. A/P Problem List: (1) Hypertensive emergency ICD Code: I10 Status: Acute (2) Dehydration ICD Code: E86.0 Status: Acute (3) A-fib ICD Code: I48.91 Status: Chronic (4) Anxiety ICD Code: F41.9 Status: Chronic (5) Nausea & vomiting ICD Code: R11.2 Status: Resolved (6) Hypokalemia ICD Code: E87.6 Status: Acute (7) Hypocalcemia ICD Code: E83.51 Status: Acute (8) Elevated troponin ICD Code: R79.89 Status: Acute Assessment and Plan Neuro/Psych: History of right pontine CVA Bilateral cataracts Claustrophobia Fibromyalgia Acetaminophen for fever Continue Cymbalta 30 milligrams by mouth daily for fibromyalgia. CV: A. fib with RVR History of IHSS - septal myotomy/left maze [address] Archibald at [facility] Hypertension Dyslipidemia Carotid stenosis MVR Status post cardioversion/initiation of amiodarone drip 2-D echo 07/02 revealed EF 50%. No regional wall motion abnormality. Mild AR, MR and TR. Left atrial enlargement. NATHALIE [address] Archuleta consult/her hybrid car mechanic Noted recommend amiodarone drip discontinued transitioned to amiodarone 200 mg by mouth daily today/metoprolol 50 mg twice a day Serial troponins currently trending downward Resp: Acute respiratory insufficiency Nasal cannula to maintain saturations greater or equal to 92% IS while awake Chest x-ray on admission reveals no acute cardio pulmonary findings GI: Gastroesophageal reflux disease Nausea/vomiting History diverticulosis On heart healthy diet. On Prilosec 20 mg daily at home. Hospital substitution Protonix 40 mg by mouth daily Colace/as needed Senokot for bowel regimen : Meraz if indicated for accurate I's and O's in a critically ill patient Endo: Hyperglycemia of critical illness Sliding-scale insulin if indicated. TSH low at 0.3. T4 elevated T3 decrease. Will check thyroglobulin antibody and thyroid nuclear medicine scan Renal: Monitor urine output closely. Accurate I/os. Heme: Leukocytosis Macrocytic anemia Hypercoagulable state Xarelto use Resume Xarelto 20 mg by mouth daily. Monitor trends with CBC. History of EtOH use one to 2 glasses of wine daily ID: C. difficile positive UTI Continue Flagyl 500 milligrams 3 times a day On aztreonam 1 g IV every 8 hours for UTI. Discontinued today Check C. difficile 2/3 Blood cultures/urine cultures no growth FEN: Hypophosphatemia Recheck BMP Replace electrolytes as clinically indicated. Goal magnesium of 2.0. Potassium of 4.0. Neutra-Phos 3 dosages MSK: History of carpal tunnel syndrome PT/OT evaluate and treat. Access - Utilize peripheral IV. Central line if indicated Prophylaxis - GI - Protonix - DVT - Xarelto Critical Care: The total care time was 35 minutes. Time to perform other separately billable procedures was not included in the critical care time. Patient is stable from a critical care medicine standpoint. We will assigned to hospitalist in a.m. 2/ Jim Gill MD Nov 21, 2016 11:52
--- NOTE | 2016-11-21 12:25 | ECHLIM ---
Study Study Date:11/21/2016 STUDY CONCLUSIONS SUMMARY - Left ventricle: The cavity size was dilated. Wall thickness was normal. Systolic function was severely reduced. The estimated ejection fraction was in the range of 20% to 25%. Diffuse hypokinesis. - Aortic valve: Mild to moderate regurgitation. - Mitral valve: Severely calcified annulus. Mildly thickened leaflets, . Moderate regurgitation. Valve area by pressure half-time: 1.61cm^2. - Tricuspid valve: Moderate regurgitation. If LV function is below 40, please consider prescribing an ACEI or ARB or document rationale for non-use. PROCEDURE DATA STUDY STATUS: Elective. Procedure: Transthoracic echocardiography. Image quality was adequate. Scanning was performed from the parasternal, apical, and subcostal acoustic windows. Study completion: The patient tolerated the procedure well. Transthoracic echocardiography. M-mode, complete 2D, complete spectral Doppler, and color Doppler. Patient status: Inpatient. CARDIAC ANATOMY LEFT VENTRICLE: The cavity size was dilated. Wall thickness was normal. Systolic function was severely reduced. The estimated ejection fraction was in the range of 20% to 25%. Diffuse hypokinesis. AORTIC VALVE: Not well visualized. Moderately thickened, moderately calcified leaflets. Doppler: Transvalvular velocity was within the normal range. There was no stenosis. Mild to moderate regurgitation. AORTA: Aortic root: The aortic root was normal in size. MITRAL VALVE: Severely calcified annulus. Mildly thickened leaflets, . Doppler: Transvalvular velocity was within the normal range. There was no evidence for stenosis. Moderate regurgitation. Valve area by pressure half-time: 1.61cm^2. LEFT ATRIUM: The atrium was normal in size. RIGHT VENTRICLE: The cavity size was normal. Wall thickness was normal. PULMONIC VALVE: Poorly visualized. Doppler: Transvalvular velocity was within the normal range. There was no evidence for stenosis. No regurgitation. TRICUSPID VALVE: Structurally normal valve. Doppler: Transvalvular velocity was within the normal range. Moderate regurgitation. PULMONARY ARTERY: The main pulmonary artery was normal-sized. RIGHT ATRIUM: The atrium was normal in size. PERICARDIUM: There was no pericardial effusion. BASIC MEASUREMENTS ADULT NORMAL Left ventricle LV internal dimension, ED, chordal level, 48.2 mm 43-52 PLAX LV internal dimension, ES, chordal level, *44.1 mm 23-38 PLAX Fractional shortening, chordal level, PLAX *9 % >29 LV posterior wall thickness, ED 9.71 mm IVS/LVPW ratio, ED *2.03 <1.3 Ventricular septum Septal thickness, ED 19.7 mm Right ventricle RV internal dimension, ED, PLAX 25.3 mm 19-38 DOPPLER MEASUREMENTS ADULT NORMAL Mitral valve Pressure half-time 137 ms Valve area, pressure half-time 1.61 cm^2 LEGEND: Mean values are shown as u=mean value. Asterisk (*) proctor values outside specified normal range. Prepared and signed by Sam Robert [id number]
[2016-11-21] MEDS: AMIODARONE 200 MG TAB PO SCH (12:33)
--- NOTE | 2016-11-21 12:40 | EKG ---
Date Performed: 11/19/2016 Time Performed: 13:17:23 PTAGE: 76 years EKG: SINUS TACHYCARDIA POSSIBLE RIGHT ATRIAL ENLARGEMENT MARKED LEFT AXIS DEVIATION LEFT BUNDLE BRANCH BLOCK Since previous tracing, no significant change noted ABNORMAL ECG PREVIOUS TRACING : 11/19/2016 07.52 DOCTOR: Jeffrey Archuleta Interpretating Date/Time 11/21/2016 12:38:40
--- NOTE | 2016-11-21 12:41 | EKG ---
Date Performed: 11/19/2016 Time Performed: 20:37:04 PTAGE: 76 years EKG: SINUS TACHYCARDIA POSSIBLE RIGHT ATRIAL ENLARGEMENT MARKED LEFT AXIS DEVIATION LEFT BUNDLE BRANCH BLOCK Since previous tracing, no significant change noted ABNORMAL ECG PREVIOUS TRACING : 11/19/2016 13.17 DOCTOR: Jeffrey Archuleta Interpretating Date/Time 11/21/2016 12:38:54
[2016-11-21] MEDS: POTASSIUM PHOSPHATE/SODIUM PHOSPHATE 250 MG TAB PO SCH ×2 (16:52→21:15)
[2016-11-21] MEDS: MORPHINE SULFATE 4 MG/ML INJ IV PRN (22:13)
[2016-11-22] VITALS (17 sets, daily range): BP systolic 125–152; BP diastolic 72–87; PULSE 55–70; RESP 18–25; TEMP 98–98.7; O2SAT 95–100
[2016-11-22] MEDS: CHLORHEXIDINE GLUCONATE 2 % 1 PACK (2 CLOTHS) TOP SCH (04:00)
[2016-11-22] MEDS: metroNIDAZOLE 500 MG TAB PO SCH ×3 (06:21→21:32)
[2016-11-22] MEDS: POTASSIUM PHOSPHATE/SODIUM PHOSPHATE 250 MG TAB PO SCH (06:21)
[2016-11-22] MEDS: INSULIN NovoLIN REGULAR SUPPLEMENTAL SCALE SQ SCH (07:00)
[2016-11-22 07:58] LABS: AUTOMATED NEUTROPHIL # 6.6 TH/MM3 (1.8-7.7); BASOPHIL # 0.1 TH/MM3 (0-0.2); BASOPHIL % 0.8 % (0.0-2.0); EOSINOPHIL # 0.2 TH/MM3 (0-0.4); EOSINOPHIL % 1.7 % (0.0-4.0); HEMATOCRIT 31.1 % (35.0-46.0); HEMO FLAGS DIFF FINAL; LYMPH % 16.6 % (9.0-44.0); LYMPHOCYTE # 1.5 TH/MM3 (1.0-4.8); MEAN CELL VOLUME 102.2 FL (80.0-100.0); MEAN CORPUSCULAR HEMOGLOBIN 36.1 PG (27.0-34.0); MEAN CORPUSCULAR HGB CONC 35.3 % (32.0-36.0); MONO % 7.8 % (0.0-8.0); NEUT % 73.1 % (16.0-70.0); PLATELET COUNT 306 TH/MM3 (150-450); RED BLOOD COUNT 3.04 MIL/MM3 (4.00-5.30); RED CELL DISTRIBUTION WIDTH 12.1 % (11.6-17.2)
[2016-11-22] MEDS: METOPROLOL TARTRATE 50 MG TAB PO SCH ×2 (08:08→21:32)
[2016-11-22] MEDS: FAMOTIDINE 20 MG TAB PO SCH ×2 (08:08→21:32)
[2016-11-22] MEDS: RIVAROXABAN 20 MG TAB PO SCH (08:08)
[2016-11-22] MEDS: DOCUSATE SODIUM 100 MG CAP PO SCH ×2 (08:09→21:00)
[2016-11-22] MEDS: DULoxetine HCl DR 30 MG CAP PO SCH ×2 (08:09→21:32)
[2016-11-22] MEDS: PANTOPRAZOLE SOD 40 MG DELAYED RELEASE TAB PO SCH (08:09)
[2016-11-22] MEDS: AMIODARONE 200 MG TAB PO SCH (08:09)
[2016-11-22 08:44] LABS: ALKALINE PHOSPHATASE 56 U/L (45-117); ALT (GPT) 29 U/L (10-53); ANION GAP 8 MEQ/L (5-15); AST (GOT) 56 U/L (15-37); BICARBONATE 30.2 MEQ/L (21.0-32.0); BLOOD UREA NITROGEN 15 MG/DL (7-18); CHLORIDE 99 MEQ/L (98-107); GLOMERULAR FILTRATION RATE 97 ML/MIN (>89); MAGNESIUM 1.8 MG/DL (1.5-2.5); SODIUM (NA) 137 MEQ/L (136-145); TOTAL BILIRUBIN ADULT 0.7 MG/DL (0.2-1.0)
[2016-11-22 08:46] LABS: POTASSIUM 4.4 MEQ/L (3.5-5.1)
[2016-11-22] MEDS: ARTIFICIAL TEARS OPTH SOLN 15 ML BTL EACH EYE SCH ×2 (09:00→21:34)
[2016-11-22] MEDS: SODIUM CHLORIDE 0.9% FLUSH 5 ML FLUSH IV FLUSH SCH ×2 (09:00→21:00)
--- NOTE | 2016-11-22 10:37 | HHI.PR ---
Subjective Remarks Transfer of care to hospitalist service from screen repairer crusher service. Follow-up atrial fibrillation with RVR, C. difficile. Patient states that her diarrhea is improving. No chest pain or dyspnea. No nausea/vomiting. Objective Vitals Vital Signs Date Time Temp Pulse Resp B/P Pulse Ox O2 Delivery O2 Flow Rate FiO2 11/22/16 08:00 98.6 65 20 152/82 99 11/22/16 08:00 66 11/22/16 04:00 98.0 56 22 145/83 95 11/22/16 04:00 56 11/22/16 00:00 98.0 55 25 146/81 96 11/22/16 00:00 55 11/21/16 20:00 66 11/21/16 20:00 97.9 66 25 150/87 96 11/21/16 18:00 66 11/21/16 16:00 98.5 88 20 139/69 95 11/21/16 16:00 66 11/21/16 14:00 60 11/21/16 12:00 97.8 88 24 150/72 95 11/21/16 12:00 60 I/O 11/21/16 11/21/16 11/21/16 11/22/16 11/22/16 11/22/16 07:00 15:00 23:00 07:00 15:00 23:00 Intake Total 144 ml 618 ml 480 ml Output Total 400 ml Balance 144 ml 218 ml 480 ml Intake Oral 480 ml 480 ml IV Total 144 ml 138 ml Output Urine Total 400 ml # Voids 1 2 # Bowel Movements 1 1 Result Diagram: 11/22/16 0734 11/22/16 0734 Imaging Last Impressions Chest X-Ray 11/18/161999 Signed Impressions: Service Date/Time: November 20:09 - CONCLUSION: No evidence of acute cardiopulmonary disease. Yadiel Goodman MD Objective Remarks General: Elderly female in no acute distress. Heart: Regular rate and rhythm. No murmur. Lungs: Clear to auscultation bilaterally. No wheezes, rales, or rhonchi. Breathing is nonlabored. Abdomen: Soft, nontender, nondistended. Extremities: No lower extremity edema. Psych: Alert and oriented. Urinary Catheter: No Vascular Central Line Catheter: No A/P Problem List: (1) Atrial fibrillation with RVR ICD Code: I48.91 Status: Acute (2) C. difficile colitis ICD Code: A04.7 Status: Acute (3) GERD (gastroesophageal reflux disease) ICD Code: K21.9 Status: Chronic (4) Hypophosphatemia ICD Code: E83.39 Status: Acute (5) Hyperlipidemia ICD Code: E78.5 Status: Chronic (6) Hyperglycemia ICD Code: R73.9 Status: Acute (7) Acute respiratory insufficiency ICD Code: R06.89 Status: Acute (8) Hypertension ICD Code: I10 Status: Chronic Assessment and Plan 1. Arrhythmia: The patient was treated by EVAC and in the ER with lidocaine and electric cardioversion without resolution. Was placed on amiodarone drip for A- fib with RVR. Now transitioned to oral amiodarone. Continue metoprolol. Appreciate cardiology recommendations. 2. Acute respiratory insufficiency: Improving. Continue oxygen per nasal cannula to maintain saturation greater than or equal to 92%. 3. Hyperglycemia of critical illness: Improved. 4. Hypertension: Continue current medications. 5. Dyslipidemia: Continue statin. 6. GERD: Continue PPI. 7. C. difficile colitis: Continue Flagyl. Aztreonam has been discontinued. Blood cultures are negative. Urine culture growing mixed gram positive liza, probable contaminants. 8. Hypophosphatemia: Supplement. 9. DVT prophylaxis: Xarelto. 10. Elevated troponin: Likely demand ischemia. Appreciate cardiology recommendations. Trending down. 11. History of CVA: Continue Xarelto. Gene Casas MD Nov 22, 2016 10:28
[2016-11-22] MEDS ORDERED: POTASSIUM PHOSPHATE MONOBASIC 500 MG TAB PO ONE (11:00)
--- NOTE | 2016-11-22 13:39 | PD.CARD.PN ---
Subjective Subjective Remarks Patient moved to [facility]. Less frequent BMs. less watery. tele SB to NSR with LBBB. BP stable Objective Medications Current Medications Medications (Trade) Dose Ordered Sig/Ana Route Start Time Stop Time Status Last Admin (NS Flush) 2 ml UNSCH PRN IV FLUSH 11/19/16 02:45 (NS Flush) 2 ml BID IV FLUSH 11/19/16 09:00 11/22/16 09:00 (Morphine Inj) 2 mg Q2H PRN IV 11/19/16 02:45 11/21/16 22:13 (Pepcid) 20 mg Q12HR PO 11/19/16 09:00 11/22/16 08:08 (Ativan Inj) 0.5 mg Q4H PRN IV 11/19/16 02:45 (Reglan Inj) 10 mg Q6H PRN IV 11/19/16 02:45 (Ambien) 5 mg HS PRN PO 11/19/16 02:45 (Xarelto) 20 mg DAILY PO 11/20/16 09:00 11/22/16 08:08 (Flagyl) 500 mg Q8HR PO 11/19/16 14:00 11/22/16 06:21 (Protonix) 40 mg DAILY PO 11/20/16 09:00 11/22/16 08:09 (Lopressor) 50 mg Q12HR PO 11/19/16 21:00 11/22/16 08:08 (Tylenol) 650 mg Q6H PRN PO 11/19/16 11:45 (Zofran Inj) 4 mg Q6H PRN IV 11/19/16 11:45 (Colace) 100 mg BID PO 11/19/16 21:00 11/19/16 20:53 (Senokot) 17.2 mg Q12H PRN PO 11/19/16 11:45 Miscellaneous Information 1 Q361D XX 11/19/16 11:45 (Chlorhexidine 2% Cloth) 3 pack Taper DAILY@04 TOP 11/20/16 04:00 11/16/17 03:59 11/21/16 04:00 (Chlorhexidine 2% Cloth) 3 pack UNSCH PRN TOP 11/19/16 11:45 (Tears Naturale Opth Soln) 1 drop BID EACH EYE 11/20/16 13:00 11/22/16 09:00 (Cordarone) 200 mg DAILY PO 11/21/16 12:00 11/22/16 08:09 (Cymbalta Dr) 30 mg BID PO 11/22/16 09:00 11/22/16 08:09 Vital Signs / I&O Vital Signs Date Time Temp Pulse Resp B/P Pulse Ox O2 Delivery O2 Flow Rate FiO2 11/22/16 12:00 57 11/22/16 12:00 57 11/22/16 12:00 98.7 58 18 125/72 100 11/22/16 11:00 62 11/22/16 10:00 56 11/22/16 08:00 98.6 65 20 152/82 99 11/22/16 08:00 66 11/22/16 04:00 98.0 56 22 145/83 95 11/22/16 04:00 56 11/22/16 00:00 98.0 55 25 146/81 96 11/22/16 00:00 55 11/21/16 20:00 66 11/21/16 20:00 97.9 66 25 150/87 96 11/21/16 18:00 66 11/21/16 16:00 98.5 88 20 139/69 95 11/21/16 16:00 66 11/21/16 14:00 60 I/O 11/21/16 11/21/16 11/21/16 11/22/16 11/22/16 11/22/16 07:00 15:00 23:00 07:00 15:00 23:00 Intake Total 144 ml 618 ml 480 ml Output Total 400 ml Balance 144 ml 218 ml 480 ml Intake Oral 480 ml 480 ml IV Total 144 ml 138 ml Output Urine Total 400 ml # Voids 1 2 # Bowel Movements 1 1 Physical Exam GENERAL: Sleeping, easy to arouse SKIN: Warm and dry. HEAD: Normocephalic. EYES: No scleral icterus. No injection or drainage. NECK: Supple, trachea midline. CARDIOVASCULAR: bradycardia and reg rhythm RESPIRATORY: Breath sounds equal bilaterally. No accessory muscle use. GASTROINTESTINAL: Abdomen soft, non-tender, nondistended. MUSCULOSKELETAL: No cyanosis, or edema. BACK: Nontender without obvious deformity. No CVA tenderness. Laboratory Laboratory Tests Test 11/22/16 07:34 White Blood Count 9.0 TH/MM3 Red Blood Count 3.04 MIL/MM3 Hemoglobin 11.0 GM/DL Hematocrit 31.1 % Mean Corpuscular Volume 102.2 FL Mean Corpuscular Hemoglobin 36.1 PG Mean Corpuscular Hemoglobin 35.3 % Concent Red Cell Distribution Width 12.1 % Platelet Count 306 TH/MM3 Mean Platelet Volume 7.5 FL Neutrophils (%) (Auto) 73.1 % Lymphocytes (%) (Auto) 16.6 % Monocytes (%) (Auto) 7.8 % Eosinophils (%) (Auto) 1.7 % Basophils (%) (Auto) 0.8 % Neutrophils # (Auto) 6.6 TH/MM3 Lymphocytes # (Auto) 1.5 TH/MM3 Monocytes # (Auto) 0.7 TH/MM3 Eosinophils # (Auto) 0.2 TH/MM3 Basophils # (Auto) 0.1 TH/MM3 CBC Comment DIFF FINAL Differential Comment Sodium Level 137 MEQ/L Potassium Level 4.4 MEQ/L Chloride Level 99 MEQ/L Carbon Dioxide Level 30.2 MEQ/L Anion Gap 8 MEQ/L Blood Urea Nitrogen 15 MG/DL Creatinine 0.60 MG/DL Estimat Glomerular Filtration 97 ML/MIN Rate Random Glucose 136 MG/DL Calcium Level 7.8 MG/DL Phosphorus Level 2.2 MG/DL Magnesium Level 1.8 MG/DL Total Bilirubin 0.7 MG/DL Aspartate Amino Transf 56 U/L (AST/SGOT) Alanine Aminotransferase 29 U/L (ALT/SGPT) Alkaline Phosphatase 56 U/L Total Protein 6.4 GM/DL Albumin 2.7 GM/DL Assessment and Plan Assessment and Plan ASSESSMENT Recurrent atrial fibrillation with RVR. now NSR. On amio and xarelto Has a history of stroke Chronic LBBB- neg nuclear stress test 08/2016 [facility] - did not convert with direct cardioversion. Appears to be atrial fibrillation with RVR with LBBB Elevated troponin- likely demand ischemia Hx IHSS s/p myomectomy 2010 Hx CVA while off Xarelto Hx HTN,recent hypotension due to dehydration C.Diff Colitis Hypokalemia on admission PLAN: Continue amio Continue Xarelto Monitor BP Monitor and optimize electrolytes The patient is stable for discharge from a cardiac standpoint. Instructed to follow up in the office in 1-2 week with BP log. Assessment and plan discussed with Dr Archuleta. Inna Patiño Nov 22, 2016 13:39
[2016-11-22 18:37] LABS: BACTERIA, URINE FEW /hpf; BLOOD, URINE SMALL (NEG); CALCIUM OXALATE CRYSTALS,URINE OCC /hpf; COMMENT (UR) CULTURE INDICATED; CULTURE IF INDICATED CULTURE INDICATED; GLUCOSE,URINE NEG (NEG); HYALINE CAST, URINE 2 /lpf (RARE); KETONE, URINE NEG (NEG); MUCUS URINE MANY /lpf (OCC); NITRITE,URINE NEG (NEG); PH, URINE 5.5 (5.0-8.5); SQUAMOUS EPITHELIAL CELL URINE 10 /hpf (0-5)
[2016-11-22 18:40] LABS: URINE COLOR BROWN (YELLW/STRAW)
[2016-11-23] VITALS (21 sets, daily range): BP systolic 137–159; BP diastolic 72–99; PULSE 56–74; RESP 18–20; TEMP 97.8–98.8; O2SAT 93–99
[2016-11-23] MEDS: ZOLPIDEM TARTRATE 5 MG TAB PO PRN ×2 (00:17→22:05)
[2016-11-23] MEDS: CHLORHEXIDINE GLUCONATE 2 % 1 PACK (2 CLOTHS) TOP SCH (04:00)
[2016-11-23] MEDS: metroNIDAZOLE 500 MG TAB PO SCH (06:00)
[2016-11-23 06:01] LABS: AUTOMATED NEUTROPHIL # 5.4 TH/MM3 (1.8-7.7); BASOPHIL # 0.1 TH/MM3 (0-0.2); BASOPHIL % 0.9 % (0.0-2.0); EOSINOPHIL # 0.1 TH/MM3 (0-0.4); EOSINOPHIL % 1.8 % (0.0-4.0); HEMATOCRIT 28.4 % (35.0-46.0); HEMO FLAGS DIFF FINAL; LYMPH % 18.4 % (9.0-44.0); LYMPHOCYTE # 1.4 TH/MM3 (1.0-4.8); MEAN CELL VOLUME 103.5 FL (80.0-100.0); MEAN CORPUSCULAR HEMOGLOBIN 35.1 PG (27.0-34.0); MONO % 10.5 % (0.0-8.0); NEUT % 68.4 % (16.0-70.0); PLATELET COUNT 340 TH/MM3 (150-450); RED BLOOD COUNT 2.75 MIL/MM3 (4.00-5.30); RED CELL DISTRIBUTION WIDTH 12.3 % (11.6-17.2); WHITE BLOOD COUNT 7.9 TH/MM3 (4.0-11.0)
[2016-11-23 06:22] LABS: BICARBONATE 30.7 MEQ/L (21.0-32.0); MAGNESIUM 1.5 MG/DL (1.5-2.5); POTASSIUM 4.8 MEQ/L (3.5-5.1)
[2016-11-23 06:49] LABS: INTERNATIONAL NORMALIZED RATIO 1.4 RATIO; PROTHROMBIN TIME - PATIENT 15.3 SEC (9.8-11.6)
[2016-11-23] MEDS: DOCUSATE SODIUM 100 MG CAP PO SCH ×2 (08:02→21:00)
[2016-11-23] MEDS: PANTOPRAZOLE SOD 40 MG DELAYED RELEASE TAB PO SCH (08:03)
[2016-11-23] MEDS: DULoxetine HCl DR 30 MG CAP PO SCH ×2 (08:04→22:05)
[2016-11-23] MEDS: RIVAROXABAN 20 MG TAB PO SCH (08:04)
[2016-11-23] MEDS: AMIODARONE 200 MG TAB PO SCH (08:04)
[2016-11-23] MEDS: METOPROLOL TARTRATE 50 MG TAB PO SCH ×2 (08:04→22:05)
[2016-11-23] MEDS: FAMOTIDINE 20 MG TAB PO SCH ×2 (08:04→22:05)
[2016-11-23] MEDS: ARTIFICIAL TEARS OPTH SOLN 15 ML BTL EACH EYE SCH ×2 (08:07→22:03)
[2016-11-23] MEDS: SODIUM CHLORIDE 0.9% FLUSH 5 ML FLUSH IV FLUSH SCH ×2 (08:07→22:06)
--- NOTE | 2016-11-23 08:48 | PD.CONS ---
HPI Chief Complaint consult CRUSHER SCREEN REPAIRER for vaginal bleeding Date Seen: Nov 23, 2016 Time Seen: 08:40 (Jenny Gregory MD R1) Travel History International Travel<30 Days: No Contact w/Intl Traveler<30Days: No (Jenny Gregory MD R1) History of Present Illness HPI 76 year-old female admitted 11/18/16 for dehydration secondary to C. difficile colitis and in active Afib with RVR and LBBB. Pt reports four days of gross BRBPR at home that prompted admission, however, denies any gross rectal bleeding since admission. CRUSHER SCREEN REPAIRER team consulted by Hospitalist 11/22/16 for evaluation of postmenopausal vaginal bleeding. Patient reports yesterday at 5 PM was strained to defecate, passed soft brown stool, and upon standing, 4-5 teaspoons bright red blood running down legs. Patient unsure if source rectal or vaginal. This type of bleeding has not recurred since isolated incident yesterday. Denies dysuria, hematuria, vaginal discharge, or chronic pruritis of vagina. Denies severe vaginal mucosa atrophy or recent history of Meraz catheter use. Denies active hemorrhoids or rectal pain. Pertinent medical history includes chronic Xarelto use, with home dose of 20mg day outpatient continued as inpatient. She is s/p total hysterectomy in . Has history diverticulitis with recent antibiotic use likely causing the C. diff infection as well as history of hemorrhoids well controlled s/p hemorrhoidectomy. (Jenny Gregory MD R1) History Past Medical History Narrative Medical Diverticulitis Hemorrhoids Hypertension Hyperlipidemia History of a defibrillation History of myocardial infarction Idiopathic hypertrophic subaortic stenosis Anxiety (Jenny Gregory MD R1) Obstetric History Obstetric History s/p hysterectomy (Jenny Gregory MD R1) Past Surgical History Narrative Surgical Total hysterectomy () Hemorrhoidectomy (2010) Cataract surgery Tonsillectomy Cardiac catheterization Septal myectomy Left shoulder surgery Right ganglion cyst removal Abdominal surgery for adhesion removal Eyelid surgery Open heart surgery for IHSS Maze procedure (Jenny Gregory MD R1) Family History Narrative Family History Per EMR (Jenny Gregory MD R1) Social History Alcohol Use: No Tobacco Use: No Substance Abuse: No (Jenny Gregory MD R1) Allergies-Medications (Allergen,Severity, Reaction): Coded Allergies: Artane (Verified Allergy, Severe, focal dystonia, 11/18/16) Cardizem (Verified Allergy, Severe, achy muscles, blurry vision, 11/18/16) Celebrex (Verified Allergy, Severe, has sulfa in it, 11/18/16) Codeine (Verified Allergy, Severe, rash/hives, 11/18/16) Doxazosin (Verified Allergy, Severe, incontinence, eye itch, 11/18/16) Eliquis (Verified Allergy, Severe, Rash, 11/18/16) Felodipine (Verified Allergy, Severe, swelling of ankles, 11/18/16) Lasix (Verified Allergy, Severe, SULFA BASED, 11/18/16) Lovastatin (Verified Allergy, Severe, achy muscles, 11/18/16) Penicillin (Verified Allergy, Severe, Anaphylaxis, 11/18/16) Primidone (Verified Allergy, Severe, Nausea/Vomiting, 11/18/16) Sulfa (Verified Allergy, Severe, Anaphylaxis, 11/18/16) Norvasc (Verified Allergy, Unknown, unknown, 11/18/16) Vasotec (Verified Allergy, Unknown, unknown, 11/18/16) Ciprofloxacin (Verified Adverse Reaction, Severe, diarrhea, 11/18/16) Home Meds Active Scripts Metronidazole (Flagyl)500 Mg [id number] Mg PO TID 10 Days Ref 0 Prov:Pepe Melgar MD 11/10/[address] (Cymbalta DR)30 Mg Capdr30 Mg PO DAILY #30 CAP Ref 0 11/10/16 Omeprazole 20 Mg Tab20 Mg PO DAILY #30 TAB Ref 0 10/08/16 Rivaroxaban (Xarelto)20 Mg Tab20 Mg PO DAILY Ref 0 10/08/16 Discontinued Reported Medications Metoprolol Tartrate 25 Mg Tab25 Mg PO BID #60 TAB Ref 0 10/08/16 Losartan 50 Mg Tab50 Mg PO BID #30 TAB Ref 0 10/08/16 Hydralazine 100 Mg [id number] Mg PO BID Ref 0 Take with meals 10/08/16 Review of Systems Except as stated in HPI: all other systems reviewed are Neg (Jenny Gregory MD R1) Physical Exam Narrative GENERAL: Thin female SKIN: Warm and dry. HEENT: EOMI. MMM. CARDIOVASCULAR: Borderline bradycardic (60) RESPIRATORY: Breathing well on room air GENITOURINARY: deferred EXTREMITIES: No cyanosis or edema. BACK: Nontender without obvious deformity NEUROLOGICAL: Awake and alert. Motor and sensory grossly within normal limits ( Jenny Gregory MD R1) Data Data Vital Signs Reviewed: Yes Orders Consult Hospitalist (11/22/16 ) Physician Name Changes (11/22/16 ) Isolation 08,20 (11/22/16 10:21) Basic Metabolic Panel (Bmp) (11/23/16 06:00) Complete Blood Count With Diff (11/23/16 06:00) Magnesium (Mg) (11/23/16 06:00) Phosphorus (Po4) (11/23/16 06:00) Prothrombin Time / Inr (Pt) (11/23/16 06:00) Potassium Phosphate (K-Phos) (11/22/16 11:00) Urinalysis - C+S If Indicated (11/22/16 16:05) Specimen To Be Collected PRN (11/22/16 16:05) Consult Gynecology (11/22/16 ) Urine Culture (11/22/16 17:17) (Hub Use Only)Inp Phy Cons/Ref (11/22/16 ) Labs Laboratory Tests Test 11/22/16 11/23/16 17:17 05:12 Urine Color BROWN Urine Turbidity HAZY Urine pH 5.5 Urine Specific [place] 1.034 Urine Protein 30 Urine Glucose (UA) NEG Urine Ketones NEG Urine Occult Blood SMALL Urine Nitrite NEG Urine Bilirubin NEG Urine Urobilinogen LESS THAN 2.0 Urine Leukocyte Esterase LARGE Urine RBC 14 Urine WBC 86 Urine Squamous Epithelial 10 Cells Urine Calcium Oxalate Crystals OCC Urine Bacteria FEW Urine Hyaline Casts 2 Urine Mucus MANY Microscopic Urinalysis Comment CULTURE INDICATED White Blood Count 7.9 Red Blood Count 2.75 Hemoglobin 9.7 Hematocrit 28.4 Mean Corpuscular Volume 103.5 Mean Corpuscular Hemoglobin 35.1 Mean Corpuscular Hemoglobin 34.0 Concent Red Cell Distribution Width 12.3 Platelet Count 340 Mean Platelet Volume 7.1 Neutrophils (%) (Auto) 68.4 Lymphocytes (%) (Auto) 18.4 Monocytes (%) (Auto) 10.5 Eosinophils (%) (Auto) 1.8 Basophils (%) (Auto) 0.9 Neutrophils # (Auto) 5.4 Lymphocytes # (Auto) 1.4 Monocytes # (Auto) 0.8 Eosinophils # (Auto) 0.1 Basophils # (Auto) 0.1 CBC Comment DIFF FINAL Differential Comment Prothrombin Time 15.3 Prothromb Time International 1.4 Ratio Sodium Level 140 Potassium Level 4.8 Chloride Level 102 Carbon Dioxide Level 30.7 Anion Gap 7 Blood Urea Nitrogen 15 Creatinine 0.57 Estimat Glomerular Filtration 103 Rate Random Glucose 94 Calcium Level 8.1 Phosphorus Level 2.8 Magnesium Level 1.5 Date/Time Procedure Status Source Growth 11/22/16 17:17 Urine Culture Received Urine Clean Catch Pending 11/19/16 00:50 Urine Culture - Final Complete Urine Catheterized Urine 10-50,000 CFU/ML MIXED GRAM POSITIVE ... 11/18/16 20:05 Aerobic Blood Culture - Preliminary Resulted Blood Peripheral NO GROWTH IN 4 DAYS 11/18/16 20:05 Anaerobic Blood Culture - Preliminary Resulted Blood Peripheral NO GROWTH IN 4 DAYS (Jenny Gregory MD R1) MDM Medical Record Reviewed: Yes Plan 76 year old postmenopausal female with C. difficile and Afib with RVR presents with bleeding, possibly vaginal. From patient description of recent history of BRBPR secondary to diverticulitis and C difficile, as well as history of hemorrhoids, and isolated bleeding x1 associated with bowel movement, and s/p total hysterectomy, bleeding source more likely rectal in origin than vaginal 1. Bleeding -Speculum exam to rule out vaginal sources of bleeding -Performed by Dr. Martin, see attending attestation -If exam negative for cervical changes or abrasions/lesions/severe atrophy of vaginal wall, will presume source is rectal and defer to GI, already consulted, for further w/u -If pertinent positive found on exam, further recommendations to follow, such as consideration topical estrogen cremes for vaginal atrophy -H/H downtrending- not meet transfusion threshold at current time -Recommend daily CBCs to evaluate DSW: Dr. Martin, Dr. Sr, Dr. Rose, Admitting diagnosis: VTach, Electrolyte Abnormalities, Sepsis (Jenny Gregory MD R1) Addendum Remarks This is an addendum to the already done CRUSHER SCREEN REPAIRER consult This patient is a 76-year-old female who is status post total abdominal hysterectomy bilateral salpingo-oophorectomy several years ago at the age of 29 admitted with dehydration and C. difficile Patient had bleeding in the pelvic area unsure whether or not it was rectal or vaginal Complete physical examination and history were done Pelvic exam was done; External genitalia no lesions Vagina is multiparous no gross lesions seen. white to greenish discharge in the vagina no lesions no blood no redness no pink no dark brown discharge the vaginal cuff is intact No blood on the present Pad Assessment; 76-year-old status post BERENICE/BSO With presumed rectal bleeding No clinical evidence that the blood was coming vaginally and in view of the hysterectomy doubt vaginal bleeding Plan; a wet prep has been done as discharge is consistent with BV The order for wet prep has also been placed Recommend GI consult for rectal bleeding GI consult has not been submitted by CRUSHER SCREEN REPAIRER (Dayana Polanco MD) Jenny Gregory MD R1 Nov 23, 2016 08:48 Dayana Polanco MD Nov 23, 2016 18:15
--- NOTE | 2016-11-23 08:55 | PD.CARD.PN ---
Subjective Subjective Remarks The patient had an episode of bright red blood "running down my legs" after a large bowel movement. She denies recurrent evidence of blood in diaper since yesterday. Objective Medications Current Medications Medications (Trade) Dose Ordered Sig/Ana Route Start Time Stop Time Status Last Admin (NS Flush) 2 ml UNSCH PRN IV FLUSH 11/19/16 02:45 (NS Flush) 2 ml BID IV FLUSH 11/19/16 09:00 11/23/16 08:07 (Morphine Inj) 2 mg Q2H PRN IV 11/19/16 02:45 11/21/16 22:13 (Pepcid) 20 mg Q12HR PO 11/19/16 09:00 11/23/16 08:04 (Ativan Inj) 0.5 mg Q4H PRN IV 11/19/16 02:45 (Reglan Inj) 10 mg Q6H PRN IV 11/19/16 02:45 (Ambien) 5 mg HS PRN PO 11/19/16 02:45 11/23/16 00:17 (Xarelto) 20 mg DAILY PO 11/20/16 09:00 11/23/16 08:04 (Flagyl) 500 mg Q8HR PO 11/19/16 14:00 11/23/16 06:00 (Protonix) 40 mg DAILY PO 11/20/16 09:00 11/23/16 08:03 (Lopressor) 50 mg Q12HR PO 11/19/16 21:00 11/23/16 08:04 (Tylenol) 650 mg Q6H PRN PO 11/19/16 11:45 (Zofran Inj) 4 mg Q6H PRN IV 11/19/16 11:45 (Colace) 100 mg BID PO 11/19/16 21:00 11/19/16 20:53 (Senokot) 17.2 mg Q12H PRN PO 11/19/16 11:45 Miscellaneous Information 1 Q361D XX 11/19/16 11:45 (Chlorhexidine 2% Cloth) 3 pack Taper DAILY@04 TOP 11/20/16 04:00 11/16/17 03:59 11/21/16 04:00 (Chlorhexidine 2% Cloth) 3 pack UNSCH PRN TOP 11/19/16 11:45 (Tears Naturale Opth Soln) 1 drop BID EACH EYE 11/20/16 13:00 11/23/16 08:07 (Cordarone) 200 mg DAILY PO 11/21/16 12:00 11/23/16 08:04 (Cymbalta Dr) 30 mg BID PO 11/22/16 09:00 11/23/16 08:04 Vital Signs / I&O Vital Signs Date Time Temp Pulse Resp B/P Pulse Ox O2 Delivery O2 Flow Rate FiO2 11/23/16 08:00 98.8 59 20 154/93 96 11/23/16 07:33 93 21 11/23/16 06:00 58 11/23/16 05:00 58 11/23/16 04:00 98.0 60 20 159/99 98 11/23/16 04:00 58 11/23/16 03:00 58 11/23/16 02:00 60 11/23/16 01:00 56 11/23/16 00:00 97.9 56 18 158/92 98 11/23/16 00:00 56 11/22/16 23:00 58 11/22/16 22:02 21 11/22/16 22:00 64 11/22/16 21:00 64 11/22/16 20:00 66 11/22/16 20:00 98.4 70 20 145/83 98 11/22/16 19:00 62 11/22/16 18:00 68 11/22/16 17:00 62 11/22/16 16:00 98.6 61 18 145/87 99 11/22/16 16:00 60 11/22/16 16:00 60 11/22/16 15:00 58 11/22/16 14:00 58 11/22/16 13:00 64 11/22/16 12:00 57 11/22/16 12:00 57 11/22/16 12:00 98.7 58 18 125/72 100 11/22/16 11:00 62 11/22/16 10:00 56 I/O 11/22/16 11/22/16 11/22/16 11/23/16 11/23/16 11/23/16 07:00 15:00 23:00 07:00 15:00 23:00 Intake Total 240 ml 480 ml Output Total 425 ml 250 ml Balance -185 ml 230 ml Intake Oral 240 ml 480 ml Output Urine Total 425 ml 250 ml # Voids 2 # Bowel Movements 1 1 Physical Exam GENERAL: Sleeping, easy to arouse SKIN: Warm and dry. HEAD: Normocephalic. EYES: No scleral icterus. No injection or drainage. NECK: Supple, trachea midline. CARDIOVASCULAR: bradycardia and reg rhythm RESPIRATORY: Breath sounds equal bilaterally. No accessory muscle use. GASTROINTESTINAL: Abdomen soft, non-tender, nondistended. MUSCULOSKELETAL: No cyanosis, or edema. BACK: Nontender without obvious deformity. No CVA tenderness. Laboratory Laboratory Tests Test 11/22/16 11/23/16 17:17 05:12 Urine Color BROWN Urine Turbidity HAZY Urine pH 5.5 Urine Specific [place] 1.034 Urine Protein 30 mg/dL Urine Glucose (UA) NEG mg/dL Urine Ketones NEG mg/dL Urine Occult Blood SMALL Urine Nitrite NEG Urine Bilirubin NEG Urine Urobilinogen LESS THAN 2.0 MG/DL Urine Leukocyte Esterase LARGE Urine RBC 14 /hpf Urine WBC 86 /hpf Urine Squamous Epithelial 10 /hpf Cells Urine Calcium Oxalate Crystals OCC /hpf Urine Bacteria FEW /hpf Urine Hyaline Casts 2 /lpf Urine Mucus MANY /lpf Microscopic Urinalysis Comment CULTURE INDICATED White Blood Count 7.9 TH/MM3 Red Blood Count 2.75 MIL/MM3 Hemoglobin 9.7 GM/DL Hematocrit 28.4 % Mean Corpuscular Volume 103.5 FL Mean Corpuscular Hemoglobin 35.1 PG Mean Corpuscular Hemoglobin 34.0 % Concent Red Cell Distribution Width 12.3 % Platelet Count 340 TH/MM3 Mean Platelet Volume 7.1 FL Neutrophils (%) (Auto) 68.4 % Lymphocytes (%) (Auto) 18.4 % Monocytes (%) (Auto) 10.5 % Eosinophils (%) (Auto) 1.8 % Basophils (%) (Auto) 0.9 % Neutrophils # (Auto) 5.4 TH/MM3 Lymphocytes # (Auto) 1.4 TH/MM3 Monocytes # (Auto) 0.8 TH/MM3 Eosinophils # (Auto) 0.1 TH/MM3 Basophils # (Auto) 0.1 TH/MM3 CBC Comment DIFF FINAL Differential Comment Prothrombin Time 15.3 SEC Prothromb Time International 1.4 RATIO Ratio Sodium Level 140 MEQ/L Potassium Level 4.8 MEQ/L Chloride Level 102 MEQ/L Carbon Dioxide Level 30.7 MEQ/L Anion Gap 7 MEQ/L Blood Urea Nitrogen 15 MG/DL Creatinine 0.57 MG/DL Estimat Glomerular Filtration 103 ML/MIN Rate Random Glucose 94 MG/DL Calcium Level 8.1 MG/DL Phosphorus Level 2.8 MG/DL Magnesium Level 1.5 MG/DL Assessment and Plan Assessment and Plan ASSESSMENT Recurrent atrial fibrillation with RVR. now NSR. On amio and xarelto Has a history of stroke Chronic LBBB- neg nuclear stress test 08/2016 [facility] - did not convert with direct cardioversion. Appears to be atrial fibrillation with RVR with LBBB Elevated troponin- likely demand ischemia, negative nuclear stress test 08/2016 Hx IHSS s/p myomectomy 2010 Hx CVA while off Xarelto Hx HTN,recent hypotension due to dehydration. BP trending up C.Diff Colitis Recal bleeding, self resolved. H/H trending down. PLAN: Continue amio and lopressor Hold Xarelto. Monitor for recurrent bleeding. Consult GI for progressive anemia , rectal bleeding. Monitor BP. Restart Losartan Assessment and plan discussed with Dr Archuleta. Inna Patiño Nov 23, 2016 08:55 Inna Patiño Nov 23, 2016 08:55
[2016-11-23] MEDS: LOSARTAN 25 MG TAB PO SCH (10:02)
--- NOTE | 2016-11-23 11:27 | HHI.PR ---
Subjective Remarks Follow-up bleeding, vaginal versus rectal. This was reported by nursing yesterday to be vaginal bleeding following urination. Apparently the bleeding occurred after a bowel movement, however the patient tells me that she believes that it was of vaginal origin. She states that she feels tired today. No other complaints at this time. No further episodes of bleeding. Objective Vitals Vital Signs Date Time Temp Pulse Resp B/P Pulse Ox O2 Delivery O2 Flow Rate FiO2 11/23/16 08:00 98.8 59 20 154/93 96 11/23/16 07:33 93 21 11/23/16 06:00 58 11/23/16 05:00 58 11/23/16 04:00 98.0 60 20 159/99 98 11/23/16 04:00 58 11/23/16 03:00 58 11/23/16 02:00 60 11/23/16 01:00 56 11/23/16 00:00 97.9 56 18 158/92 98 11/23/16 00:00 56 11/22/16 23:00 58 11/22/16 22:02 21 11/22/16 22:00 64 11/22/16 21:00 64 11/22/16 20:00 66 11/22/16 20:00 98.4 70 20 145/83 98 11/22/16 19:00 62 11/22/16 18:00 68 11/22/16 17:00 62 11/22/16 16:00 98.6 61 18 145/87 99 11/22/16 16:00 60 11/22/16 16:00 60 11/22/16 15:00 58 11/22/16 14:00 58 11/22/16 13:00 64 11/22/16 12:00 57 11/22/16 12:00 57 11/22/16 12:00 98.7 58 18 125/72 100 I/O 11/22/16 11/22/16 11/22/16 11/23/16 11/23/16 11/23/16 07:00 15:00 23:00 07:00 15:00 23:00 Intake Total 240 ml 480 ml Output Total 425 ml 250 ml Balance -185 ml 230 ml Intake Oral 240 ml 480 ml Output Urine Total 425 ml 250 ml # Voids 2 # Bowel Movements 1 1 Result Diagram: 11/23/1612 11/23/1612 Imaging Last Impressions Chest X-Ray 11/18/161999 Signed Impressions: Service Date/Time: November 20:09 - CONCLUSION: No evidence of acute cardiopulmonary disease. Yadiel Goodman MD Objective Remarks General: Elderly female in no acute distress. Heart: Regular rate and rhythm. No murmur. Lungs: Clear to auscultation bilaterally. No wheezes, rales, or rhonchi. Breathing is nonlabored. Abdomen: Soft, nontender, nondistended. Extremities: No lower extremity edema. Psych: Alert and oriented. Procedures None Urinary Catheter: No Vascular Central Line Catheter: No A/P Problem List: (1) Atrial fibrillation with RVR ICD Code: I48.91 Status: Acute (2) C. difficile colitis ICD Code: A04.7 Status: Acute (3) GERD (gastroesophageal reflux disease) ICD Code: K21.9 Status: Chronic (4) Hypophosphatemia ICD Code: E83.39 Status: Acute (5) Hyperlipidemia ICD Code: E78.5 Status: Chronic (6) Hyperglycemia ICD Code: R73.9 Status: Acute (7) Acute respiratory insufficiency ICD Code: R06.89 Status: Acute (8) Hypertension ICD Code: I10 Status: Chronic Assessment and Plan 1. Arrhythmia: The patient was treated by EVAC and in the ER with lidocaine and electric cardioversion without resolution. Was placed on amiodarone drip for A- fib with RVR. Now transitioned to oral amiodarone. Continue metoprolol. Appreciate cardiology recommendations. 2. Acute respiratory insufficiency: Improving. Continue oxygen per nasal cannula to maintain saturation greater than or equal to 92%. 3. Hyperglycemia of critical illness: Improved. 4. Hypertension: Continue current medications. 5. Dyslipidemia: Continue statin. 6. GERD: Continue PPI. 7. C. difficile colitis: Continue Flagyl. Aztreonam has been discontinued. Blood cultures are negative. Urine culture growing mixed gram positive liza, probable contaminants. 8. Hypophosphatemia: Supplement. 9. DVT prophylaxis: Xarelto on hold secondary to bleeding. 10. Elevated troponin: Likely demand ischemia. Appreciate cardiology recommendations. Trending down. 11. History of CVA: Xarelto on hold secondary to bleeding. 12. Bleeding, vaginal versus rectal: The patient states that the bleeding happened after a bowel movement, but she believes that it was vaginal bleeding. No further episodes of bleeding overnight or this morning. Appreciate gynecology evaluation. They will be performing speculum exam. Gastroenterology has been consulted as well. Monitor H&H. Gene Casas MD Nov 23, 2016 11:27
[2016-11-23 15:37] LABS: HEMATOCRIT 29.1 % (35.0-46.0); REVIEW FLAG FINAL
--- NOTE | 2016-11-23 16:44 | MB ---
cc: CHANO BOONE DATE OF CONSULTATION 11/23/2016 DATE OF 1940 REASON FOR CONSULTATION Rectal bleeding and C. difficile infection. HISTORY OF THE PRESENT ILLNESS Ms. Solomon is a very pleasant 76-year-old lady with past medical history significant for hypertension, hyperlipidemia, atrial fibrillation on chronic anticoagulation with Xarelto, anxiety and diverticulitis who was recently found to have acute C. difficile infection after taking antibiotics for an episode of diverticulitis which she completed a course of Cipro and Flagyl. She did report some episode of rectal bleeding at time of diagnosis, but then they it after she was started on antibiotics. At first she had stopped her Xarelto for a few days but then she resumed it and was taking it up until today. It seems like this morning she had one episode of bleeding after having a large bowel movement which was liquidy, however, nonbloody. After she completed her bowel movement she stood up from the toilet and noted blood dripping down her leg. It was unclear if the blood was coming from the vaginal area or the rectum. Xarelto has been held for now. Currently the patient reports diarrhea having 6-8 episodes of loose stool a day, however, this is somewhat better compared to what she was having before admission. She denies any significant abdominal pain, however, she does have some mild discomfort, feels sore over her abdomen. She denies any fevers or chills. URINALYSIS TECHNICIAN has evaluated the patient and is pending gynecological exam. GI has been consulted for possible rectal bleeding. PAST MEDICAL HISTORY Significant for: 1. Diverticulitis. 2. Hypertension. 3. Hyperlipidemia. 4. Atrial fibrillation. 5. History of myocardial infarction. 6. Anxiety. PAST SURGICAL HISTORY 1. Total hysterectomy. 2. Hemorrhoidectomy. 3. Tonsillectomy. 4. Cataract surgery. 5. Cardiac catheterization. 6. Left shoulder surgery. 7. Septal myomectomy. 8. Abdominal surgery for adhesions removal. 9. ____ procedure. FAMILY HISTORY Noncontributory. SOCIAL HISTORY Denies any tobacco, alcohol or drug use. ALLERGIES SHE IS ALLERGIC TO CARDIZEM, CELEBREX, CODEINE, ARTANE, DOXAZOSIN, ELIQUIS, LASIX, LOVASTATIN, PENICILLIN, PRIMIDONE, SULFA, NORVASC, VASOTEC, CIPROFLOXACIN. MEDICATIONS Home medications, she was takin. Metronidazole 500 milligrams p.o. three times a day. 2. Duloxetine 30 milligrams p.o. daily. 3. Omeprazole 20 milligrams p.o. daily. 4. Xarelto 20 milligrams p.o. daily. REVIEW OF SYSTEMS Significant for abdominal discomfort, diarrhea, rectal bleeding. Otherwise 14-point review of systems negative. PHYSICAL EXAMINATION VITAL SIGNS: Temperature is 98.5, heart rate of 62, respiratory of 20, blood pressure 137/72. GENERAL: She is a thin, frail female in no acute distress, lying comfortably in bed. HEENT: Normocephalic, atraumatic. Extraocular muscles intact. Pupils equal, round, reactive to light and accommodation. Nonicteric sclerae. Moist mucosa. NECK: Supple. No JVD. No lymphadenopathy. CARDIOVASCULAR: Regular rhythm and rate. No murmurs, rubs, or gallops. LUNGS: Clear to auscultation bilaterally. No wheezing or rhonchi. ABDOMEN: Soft. Nondistended. Mild tenderness to deep palpation on the left flank. Bowel sounds are present. RECTAL: Exam there is no significant lesions. The rectal tone is normal. There is light brown stool in the rectal vault. No gross bleeding noted. EXTREMITIES: No cyanosis or edema. Pulses +2 bilaterally. NEUROLOGICAL: She is alert, oriented x3. Cranial nerves are intact. Strength 5/5 throughout. No focal deficits. LABORATORY DATA Labs white blood cell count is 7.9, hemoglobin 9.7, platelet count of 340. Sodium 140, potassium of 4.8, chloride 102, bicarbonate 30. AST 56, ALT 29, alkaline phosphatase 56. Albumin 2.7. She tested positive for C. difficile on 11/20/2016. IMAGING STUDIES The chest x-ray showed no areas of acute pulmonary disease that was done on November 18, 2016. ASSESSMENT/PLAN Ms. Solomon is a pleasant 76-year lady with history of atrial fibrillation on chronic anticoagulation with Xarelto, history of diverticulitis, recently tested positive for C diff colitis after she presented with rectal bleeding currently in treatment with Flagyl. Now had a new episode of rectal bleeding versus vaginal bleeding with decrease in her hemoglobin count. GI being consulted for rectal bleeding. No evidence of gross bleeding on rectal examination performed today. PLAN 1. Rectal bleeding / C. difficile colitis, concerns for significant colitis from C. Diff. Causing significant inflammation and bleeding in the setting of chronic anticoagulation with Xarelto. Recommend to continue supportive care. Trend hemoglobin and hematocrit every 12 hours, transfuse as needed to keep hemoglobin above 7. Days that the patient continues to have significant diarrhea, her albumin level is low and not really responding to Flagyl, we will switch this to Alinia 500 milligrams twice a day. Plan is to complete 10-14 days of therapy. At this point would not recommend to do any invasive endoscopic intervention due to high risk of perforation on a patient with active C. difficile colitis unless bleeding continues and has to be done emergently. We will wait to see what the gynecologic evaluation reveals as well. 2. All other medical problems to be addressed by primary team. We would like to thank Dr. Casas for this consultation and letting us participate in the care of Ms. Solomon. We will follow along with you. MD ARSLAN Mora/KK /2:11 PM /4:04 PM
[2016-11-23] MEDS: NITAZOXANIDE 500 MG TAB PO SCH (22:05)
[2016-11-23 23:53] LABS: THYROGLOBULN 9.9 ng/mL (())
[2016-11-24] VITALS (16 sets, daily range): BP systolic 151–170; BP diastolic 86–104; PULSE 58–67; RESP 16–20; TEMP 97.4–99; O2SAT 96–100
[2016-11-24] MEDS: LORazepam 2 MG/ML VIAL IV PRN ×2 (01:06→23:36)
[2016-11-24] MEDS: CHLORHEXIDINE GLUCONATE 2 % 1 PACK (2 CLOTHS) TOP SCH (04:00)
[2016-11-24 07:31] LABS: AUTOMATED NEUTROPHIL # 4.7 TH/MM3 (1.8-7.7); BASOPHIL # 0.1 TH/MM3 (0-0.2); BASOPHIL % 0.8 % (0.0-2.0); EOSINOPHIL # 0.1 TH/MM3 (0-0.4); EOSINOPHIL % 1.4 % (0.0-4.0); HEMATOCRIT 29.6 % (35.0-46.0); HEMO FLAGS DIFF FINAL; LYMPH % 22.2 % (9.0-44.0); LYMPHOCYTE # 1.6 TH/MM3 (1.0-4.8); MEAN CELL VOLUME 102.3 FL (80.0-100.0); MEAN CORPUSCULAR HEMOGLOBIN 36.1 PG (27.0-34.0); MEAN CORPUSCULAR HGB CONC 35.3 % (32.0-36.0); MONO % 10.9 % (0.0-8.0); NEUT % 64.7 % (16.0-70.0); PLATELET COUNT 386 TH/MM3 (150-450); RED CELL DISTRIBUTION WIDTH 12.3 % (11.6-17.2); WHITE BLOOD COUNT 7.2 TH/MM3 (4.0-11.0)
[2016-11-24] MEDS: METOPROLOL TARTRATE 50 MG TAB PO SCH ×2 (09:28→21:11)
[2016-11-24] MEDS: AMIODARONE 200 MG TAB PO SCH (09:28)
[2016-11-24] MEDS: FAMOTIDINE 20 MG TAB PO SCH ×2 (09:28→21:09)
[2016-11-24] MEDS: DULoxetine HCl DR 30 MG CAP PO SCH ×2 (09:28→21:09)
[2016-11-24] MEDS: PANTOPRAZOLE SOD 40 MG DELAYED RELEASE TAB PO SCH (09:28)
[2016-11-24] MEDS: DOCUSATE SODIUM 100 MG CAP PO SCH ×2 (09:28→21:00)
[2016-11-24] MEDS: SODIUM CHLORIDE 0.9% FLUSH 5 ML FLUSH IV FLUSH SCH ×2 (09:29→21:00)
[2016-11-24] MEDS: LOSARTAN 25 MG TAB PO SCH (09:29)
[2016-11-24] MEDS: NITAZOXANIDE 500 MG TAB PO SCH ×2 (09:29→21:09)
--- NOTE | 2016-11-24 09:36 | HHI.PR ---
Subjective Remarks Follow-up C. difficile, vaginal versus rectal bleeding. The patient reports no further bleeding. Diarrhea improving. Stools starting to become more formed. Objective Vitals Vital Signs Date Time Temp Pulse Resp B/P Pulse Ox O2 Delivery O2 Flow Rate FiO2 11/24/16 06:00 60 11/24/16 06:00 154/86 11/24/16 05:00 60 11/24/16 04:00 62 11/24/16 04:00 98.0 60 18 170/104 96 11/24/16 03:00 58 11/24/16 02:00 60 11/24/16 01:00 60 11/24/16 00:00 62 11/24/16 00:00 99.0 59 18 154/96 96 11/23/16 23:00 60 11/23/16 22:00 66 11/23/16 21:00 64 11/23/16 20:00 65 11/23/16 20:00 98.5 72 20 144/89 97 11/23/16 19:00 74 11/23/16 16:00 97.8 61 20 144/84 97 11/23/16 13:00 62 11/23/16 12:00 60 11/23/16 12:00 98.5 61 20 137/72 99 11/23/16 11:00 57 11/23/16 10:00 56 I/O 11/23/16 11/23/16 11/23/16 11/24/16 11/24/16 11/24/16 07:00 15:00 23:00 07:00 15:00 23:00 Intake Total 480 ml 480 ml Output Total 250 ml 750 ml Balance 230 ml -270 ml Intake Oral 480 ml 480 ml Output Urine Total 250 ml 750 ml Result Diagram: 11/24/16 0535 11/23/16 0512 Imaging Last Impressions Chest X-Ray 11/18/161999 Signed Impressions: Service Date/Time: November 20:09 - CONCLUSION: No evidence of acute cardiopulmonary disease. Yadiel Goodman MD Objective Remarks General: Elderly female in no acute distress. Heart: Regular rate and rhythm. No murmur. Lungs: Clear to auscultation bilaterally. No wheezes, rales, or rhonchi. Breathing is nonlabored. Abdomen: Soft, nontender, nondistended. Extremities: No lower extremity edema. Psych: Alert and oriented. Procedures None Urinary Catheter: No Vascular Central Line Catheter: No A/P Problem List: (1) Atrial fibrillation with RVR ICD Code: I48.91 Status: Acute (2) C. difficile colitis ICD Code: A04.7 Status: Acute (3) GERD (gastroesophageal reflux disease) ICD Code: K21.9 Status: Chronic (4) Hypophosphatemia ICD Code: E83.39 Status: Acute (5) Hyperlipidemia ICD Code: E78.5 Status: Chronic (6) Hyperglycemia ICD Code: R73.9 Status: Acute (7) Acute respiratory insufficiency ICD Code: R06.89 Status: Acute (8) Hypertension ICD Code: I10 Status: Chronic Assessment and Plan 1. Arrhythmia: The patient was treated by EVAC and in the ER with lidocaine and electric cardioversion without resolution. Was placed on amiodarone drip for A- fib with RVR. Now transitioned to oral amiodarone. Continue metoprolol. Appreciate cardiology recommendations. Cleared for discharge by cardiology. 2. Acute respiratory insufficiency: Improving. Continue oxygen per nasal cannula to maintain saturation greater than or equal to 92%. 3. Hyperglycemia of critical illness: Improved. 4. Hypertension: Continue current medications. 5. Dyslipidemia: Continue statin. 6. GERD: Continue PPI. 7. C. difficile colitis: Appreciate gastroenterology recommendations. Continue Alinia. 8. Hypophosphatemia: Supplement. 9. DVT prophylaxis: Restart Xarelto. 10. Elevated troponin: Likely demand ischemia. Appreciate cardiology recommendations. Trending down. 11. History of CVA: Restart Xarelto. 12. Bleeding, vaginal versus rectal: The patient states that the bleeding happened after a bowel movement, but she believes that it was vaginal bleeding. No further episodes of bleeding overnight or this morning. Appreciate gynecology evaluation. They will be performing speculum exam. Appreciate GI recommendations as well. H/H stable. OK to restart Xarelto per GI. Discharge Planning Possible discharge home tomorrow if patient continues to improve clinically. Gene Casas MD Nov 24, 2016 09:35
--- NOTE | 2016-11-24 10:09 | PD.CARD.PN ---
Subjective Subjective Remarks The patient has not had recurrent bleeding. BANQUET SERVER exam negative for bleeding. GI suspects GI source. Xarelto on hold. H/H better today. BP trending up. Objective Vital Signs / I&O Vital Signs Date Time Temp Pulse Resp B/P Pulse Ox O2 Delivery O2 Flow Rate FiO2 11/24/16 09:34 67 18 155/89 100 11/24/16 06:00 60 11/24/16 06:00 154/86 11/24/16 05:00 60 11/24/16 04:00 62 11/24/16 04:00 98.0 60 18 170/104 96 11/24/16 03:00 58 11/24/16 02:00 60 11/24/16 01:00 60 11/24/16 00:00 62 11/24/16 00:00 99.0 59 18 154/96 96 11/23/16 23:00 60 11/23/16 22:00 66 11/23/16 21:00 64 11/23/16 20:00 65 11/23/16 20:00 98.5 72 20 144/89 97 11/23/16 19:00 74 11/23/16 16:00 97.8 61 20 144/84 97 11/23/16 13:00 62 11/23/16 12:00 60 11/23/16 12:00 98.5 61 20 137/72 99 11/23/16 11:00 57 I/O 11/23/16 11/23/16 11/23/16 11/24/16 11/24/16 11/24/16 07:00 15:00 23:00 07:00 15:00 23:00 Intake Total 480 ml 480 ml Output Total 250 ml 750 ml Balance 230 ml -270 ml Intake Oral 480 ml 480 ml Output Urine Total 250 ml 750 ml Physical Exam GENERAL: Getting a bath SKIN: Warm and dry. HEAD: Normocephalic. EYES: No scleral icterus. No injection or drainage. NECK: Supple, trachea midline. CARDIOVASCULAR: bradycardia and reg rhythm RESPIRATORY: Breath sounds equal bilaterally. No accessory muscle use. GASTROINTESTINAL: Abdomen soft, non-tender, nondistended. MUSCULOSKELETAL: No cyanosis, or edema. BACK: Nontender without obvious deformity. No CVA tenderness. Laboratory Laboratory Tests Test 2/7/17 2/8/17 15:20 05:35 Hemoglobin 10.1 GM/DL 10.5 GM/DL Hematocrit 29.1 % 29.6 % White Blood Count 7.2 TH/MM3 Red Blood Count 2.90 MIL/MM3 Mean Corpuscular Volume 102.3 FL Mean Corpuscular Hemoglobin 36.1 PG Mean Corpuscular Hemoglobin 35.3 % Concent Red Cell Distribution Width 12.3 % Platelet Count 386 TH/MM3 Mean Platelet Volume 7.4 FL Neutrophils (%) (Auto) 64.7 % Lymphocytes (%) (Auto) 22.2 % Monocytes (%) (Auto) 10.9 % Eosinophils (%) (Auto) 1.4 % Basophils (%) (Auto) 0.8 % Neutrophils # (Auto) 4.7 TH/MM3 Lymphocytes # (Auto) 1.6 TH/MM3 Monocytes # (Auto) 0.8 TH/MM3 Eosinophils # (Auto) 0.1 TH/MM3 Basophils # (Auto) 0.1 TH/MM3 CBC Comment DIFF FINAL Differential Comment Assessment and Plan Assessment and Plan ASSESSMENT Recurrent atrial fibrillation with RVR. now NSR. On amio, Xarelto on hold for bleeding and decreased H/H. Has a history of stroke Chronic LBBB- neg nuclear stress test 08/2016 WCT - did not convert with direct cardioversion. Appears to be atrial fibrillation with RVR with LBBB Elevated troponin- likely demand ischemia, negative nuclear stress test 08/2016 Hx IHSS s/p myomectomy 2010 Hx CVA while off Xarelto Hx HTN,recent hypotension due to dehydration. BP trending up. Losartan restarted yesterday. C.Diff Colitis Recal bleeding, self resolved. H/H stable in the past 24 hrs PLAN: Continue amio and lopressor Hold Xarelto. Monitor for recurrent bleeding. GI following. Monitor BP. Increase losartan. Assessment and plan discussed with Dr Archuleta. Inna Patiño Nov 24, 2016 10:09
[2016-11-24] MEDS ORDERED: ENALAPRILAT 1.25 MG/ML VIAL IV PUSH PRN (10:15)
--- NOTE | 2016-11-24 10:58 | HHI.GIFU ---
Subjective Remarks ALERT NAD NO ACTIVE GI BLEED...FEELING BETTER .. RECTAL YESTERDAY NEG FOR BLOOD HAD CEREAL SUPERVISOR EXAM ALSO NEG STOOLS BECOMING MORE FORMED Objective Vitals I&O Vital Signs Date Time Temp Pulse Resp B/P Pulse Ox O2 Delivery O2 Flow Rate FiO2 11/24/16 09:34 97.4 67 18 155/89 100 11/24/16 06:00 60 11/24/16 06:00 154/86 11/24/16 05:00 60 11/24/16 04:00 62 11/24/16 04:00 98.0 60 18 170/104 96 11/24/16 03:00 58 11/24/16 02:00 60 11/24/16 01:00 60 11/24/16 00:00 62 11/24/16 00:00 99.0 59 18 154/96 96 11/23/16 23:00 60 11/23/16 22:00 66 11/23/16 21:00 64 11/23/16 20:00 65 11/23/16 20:00 98.5 72 20 144/89 97 11/23/16 19:00 74 11/23/16 16:00 97.8 61 20 144/84 97 11/23/16 13:00 62 11/23/16 12:00 60 11/23/16 12:00 98.5 61 20 137/72 99 11/23/16 11:00 57 I/O 11/23/16 11/23/16 11/23/16 11/24/16 11/24/16 11/24/16 07:00 15:00 23:00 07:00 15:00 23:00 Intake Total 480 ml 480 ml Output Total 250 ml 750 ml Balance 230 ml -270 ml Intake Oral 480 ml 480 ml Output Urine Total 250 ml 750 ml Laboratory Laboratory Tests Test 11/23/16 11/24/16 15:20 05:35 Hemoglobin 10.1 10.5 Hematocrit 29.1 29.6 White Blood Count 7.2 Red Blood Count 2.90 Mean Corpuscular Volume 102.3 Mean Corpuscular Hemoglobin 36.1 Mean Corpuscular Hemoglobin 35.3 Concent Red Cell Distribution Width 12.3 Platelet Count 386 Mean Platelet Volume 7.4 Neutrophils (%) (Auto) 64.7 Lymphocytes (%) (Auto) 22.2 Monocytes (%) (Auto) 10.9 Eosinophils (%) (Auto) 1.4 Basophils (%) (Auto) 0.8 Neutrophils # (Auto) 4.7 Lymphocytes # (Auto) 1.6 Monocytes # (Auto) 0.8 Eosinophils # (Auto) 0.1 Basophils # (Auto) 0.1 CBC Comment DIFF FINAL Differential Comment Date/Time Procedure Status Source Growth 11/22/16 17:17 Urine Culture - Final Complete Urine Clean Catch 50-100,000 CFU/ML MIXED SHEREEN... Imaging Last Impressions Chest X-Ray 11/18/161999 Signed Impressions: Service Date/Time: November 20:09 - CONCLUSION: No evidence of acute cardiopulmonary disease. Yadiel Goodman MD Physical Exam HEENT: Pupils round and reactive to light; normocephalic; atraumatic; no jaundice. Throat is clear. NECK: Neck is supple, no JVD, no lymphadenopathy. CHEST: Chest is clear to auscultation and percussion. CARDIAC: Regular rate and rhythm with no murmur gallop or rubs. ABDOMEN: Soft, nondistended, nontender; no hepatosplenomegaly; bowel sounds are present in all four quadrants. EXTREMITIES: No clubbing, cyanosis, or edema. SKIN: Normal; no rash; no jaundice. Assessment and Plan Assessment: (1) Diarrhea (2) C. difficile colitis (3) Atrial fibrillation with RVR Plan PT APPEARS STABLE GI NO ACTIVE BLEEDING W STABLE HB OK TO RESTART ANTICOAG RX....CONTINUE W ALINIA 10 DAYS FOR C DIFF COLITIS ....IF DCD CAN FU W DR ROJAS 1-2 WEEKS Problem Qualifiers (1) Diarrhea: Qualified Code: R19.7 - Diarrhea, unspecified type Andrés Aparicio MD Nov 24, 2016 10:58
--- NOTE | 2016-11-24 11:26 | PD.CONS ---
History & Physical H&P OBGYN CONSULT PROGRESS NOTE Subjective: Denies any further episodes of bleeding (vaginal or rectal) since the isolated bleeding x1 two days ago. Denies SOB, chest pain, palpitations, syncope, or leg pain. Discussed that white/green vaginal discharge seen yesterday was wnl on wet prep - no evidence of bacterial or yeast infection Vaginal wall also grossly wnl on exam, without significant atrophy Discussed bleeding x1 likely rectal, related to her C. diff, not vaginal, and would be further worked up by GI. Pt expressed understanding that OBGYN would be signing off. She had no questions. Objective: Vital Signs 3 Date Time Temp Pulse Resp B/P Pulse Ox O2 Delivery O2 Flow Rate FiO2 11/24/16 09:34 97.4 67 18 155/89 100 11/23/16 07:33 21 Intake and Output 3 11/23/16 11/23/16 11/24/16 08:00 16:00 00:00 Intake Total 480 ml Output Total 250 ml Balance 230 ml Physical Exam GENERAL: Adult female in no acute distress, reclining on bed DERM: Warm and dry. CV: Borderline bradycardic (60). Radial pulse 2+ RESP: Breathing well on room air : Not indicated MSK: No cyanosis or edema. NEURO: Motor and sensory grossly within normal limits Labs U/A 11/23- +LE, few bacteria, many mucus, 86 WBC, 14 RBC, 30 protein Wet Prep 11/23: no clue cells, no trich, no yeast Assessment/Plan 76 year-old postmenopausal female with C. difficile and Afib with RVR on Xarelto presents with bleeding x1 on 11/22/16, unknown if source vaginal or rectal. Bleeding source deemed likely GI in origin in context of recent BRBPR secondary to active C difficile infection, isolated bleeding associated with straining during bowel movement, hx hemorrhoids and diverticulitis, and fact pt s/p total hysterectomy with bilateral salpingo-oophorectomy. 1. Bleeding Appears resolved. Likely GI in origin. Vaginal speculum exam negative for gross blood or visible source of bleeding. H/H improved from yesterday. Well above transfusion threshold. * No further workup deemed necessary per OBGYN team, signing off * Will defer future management to GI and primary team 2. Macrocytic Anemia * Chronic condition * Recommend B12/folate supplementation * Consider outpatient iron studies DW: Jenny Otoole MD R1 Nov 24, 2016 11:26
[2016-11-24] MEDS: ZOLPIDEM TARTRATE 5 MG TAB PO PRN (21:37)
[2016-11-24] MEDS: ARTIFICIAL TEARS OPTH SOLN 15 ML BTL EACH EYE SCH (21:39)
[2016-11-25] VITALS (10 sets, daily range): BP systolic 157–169; BP diastolic 89–96; PULSE 58–69; RESP 18–20; TEMP 97.9–98.2; O2SAT 96–99
[2016-11-25] MEDS: CHLORHEXIDINE GLUCONATE 2 % 1 PACK (2 CLOTHS) TOP SCH (04:00)
[2016-11-25] MEDS ORDERED: METO-309 PO (08:57)
[2016-11-25] MEDS ORDERED: COZA50TA PO (08:57)
[2016-11-25] MEDS ORDERED: AMIO200T PO (08:57)
[2016-11-25] MEDS ORDERED: ALIN500T PO (08:57)
[2016-11-25] MEDS ORDERED: LOSARTAN 50 MG TAB PO SCH (09:00)
[2016-11-25] MEDS: DOCUSATE SODIUM 100 MG CAP PO SCH (09:00)
--- NOTE | 2016-11-25 09:09 | HHI.DCPOC ---
Discharge Care Plan Diagnosis: (1) Diarrhea (2) Atrial fibrillation with RVR (3) C. difficile colitis (4) Hypertension (5) GERD (gastroesophageal reflux disease) (6) Rectal bleeding Goals to Promote Your Health * To prevent worsening of your condition and complications * To maintain your health at the optimal level Directions to Meet Your Goals Take your medications as prescribed Follow your dietary instruction Follow activity as directed Keep your appointments as scheduled Take your immunizations and boosters as scheduled If your symptoms worsen call your PCP, if no PCP go to Urgent Care Center or Emergency Room Smoking is Dangerous to Your Health. Avoid second hand smoke Call the 24-hour hour crisis hotline for domestic abuse at Gene Casas MD Nov 25, 2016 09:09
--- NOTE | 2016-11-25 09:10 | HHI.FF ---
Face to Face Verification Diagnosis: (1) Rectal bleeding (2) Atrial fibrillation with RVR (3) C. difficile colitis (4) Hypertension (5) GERD (gastroesophageal reflux disease) Physical Therapy Order: Evaluate and Treat Home Health Nursing Order: Nursing assessment with vital signs I have seen patient Alexa Solomon on 11/25/16. My clinical findings support the need for the requested home health care services because: Deconditioned w/ increased weakness I certify that my clinical findings support that this patient is homebound because: Unsteady gait/balance Gene Casas MD Nov 25, 2016 09:10
--- NOTE | 2016-11-25 09:14 | HHI.DS ---
cc: Desirae Leung MD Discharge Summary Admission Date Nov 18, 2016 at 23:05 Discharge Date: Nov 25, 2016 Admitting Diagnosis VTach, Electrolyte Abnormalities, Sepsis (1) Atrial fibrillation with RVR ICD Code: I48.91 (2) C. difficile colitis ICD Code: A04.7 (3) GERD (gastroesophageal reflux disease) ICD Code: K21.9 (4) Hypophosphatemia ICD Code: E83.39 (5) Hyperlipidemia ICD Code: E78.5 (6) Hyperglycemia ICD Code: R73.9 (7) Acute respiratory insufficiency ICD Code: R06.89 (8) Hypertension ICD Code: I10 Procedures None Brief History - From Admission 76-year-old female with a history of left bundle-branch block, hypertension, A. fib on Xarelto, mitral regurgitation and septal rhinoplasty arrives following one day of vomiting and generalized weakness. At a scene EMS observed particular tachycardia and administered lidocaine. Her heart rate decreased from 222 about 150. EMS also observed diaphoresis on scene which improved marginally en route to the ER. In the ER the patient denies chest pain however reports severe nausea and has vomited once. Heart rate approximately 150 with a wide complex tachycardia concerning for possible ventricular tachycardia. The patient underwent electrical cardioversion in the ED with 100 150 200 J. Cardiology was notified and started Amiodarone. Metoprolol 1 mg every 5 hours IV with 50 mg oral q12 recommended. Azactam and Flagyl started as the patient has a known history of C. difficile colitis as well as leukocytosis and a lactic acidosis of 10. Patient received about 1-1/2 L crystalloid. She refused a right IJ central line and is now admitted to ICU. CBC/BMP: 11/24/16 0535 11/23/16 0512 Significant Findings Laboratory Tests Test 11/22/16 11/23/16 11/23/16 11/24/16 17:17 05:12 15:20 05:35 Urine Color BROWN (YELLW/STRAW) Urine Turbidity HAZY (CLEAR) Urine Protein 30 mg/dL (NEG-TRACE) Urine Occult Blood SMALL (NEG) Urine Leukocyte Esterase LARGE (NEG) Urine RBC 14 /hpf (0-3) Urine WBC 86 /hpf (0-5) Urine Calcium Oxalate Crystals OCC /hpf (NONE) Urine Bacteria FEW /hpf (NONE) Urine Mucus MANY /lpf (OCC) Red Blood Count 2.75 MIL/MM3 2.90 MIL/MM3 (4.00-5.30) (4.00-5.30) Hemoglobin 9.7 GM/DL 10.1 GM/DL 10.5 GM/DL (11.6-15.3) (11.6-15.3) (11.6-15.3) Hematocrit 28.4 % 29.1 % 29.6 % (35.0-46.0) (35.0-46.0) (35.0-46.0) Mean Corpuscular Volume 103.5 FL 102.3 FL (80.0-100.0) (80.0-100.0) Mean Corpuscular Hemoglobin 35.1 PG 36.1 PG (27.0-34.0) (27.0-34.0) Monocytes (%) (Auto) 10.5 % 10.9 % (0.0-8.0) (0.0-8.0) Prothrombin Time 15.3 SEC (9.8-11.6) Calcium Level 8.1 MG/DL (8.5-10.1) Imaging Last Impressions Chest X-Ray 11/18/161999 Signed Impressions: Service Date/Time: November 20:09 - CONCLUSION: No evidence of acute cardiopulmonary disease. Yadiel Goodman MD PE at Discharge General: Elderly female in no acute distress. Heart: Regular rate and rhythm. No murmur. Lungs: Clear to auscultation bilaterally. No wheezes, rales, or rhonchi. Breathing is nonlabored. Abdomen: Soft, nontender, nondistended. Extremities: No lower extremity edema. Psych: Alert and oriented. Pt update on day of discharge Patient states that she wants to go home today. She denies chest pain or dyspnea. Diarrhea has improved. No further episodes of bleeding. States that she still feels weak and a little unsteady on her feet when ambulating. She has a walker and a cane at home. Hospital Course The patient was admitted to the critical care service for management of wide complex tachycardia. Cardiology was consulted. Patient was started on amiodarone drip and was given metoprolol. She was transitioned to oral amiodarone. She was treated with aztreonam for UTI. She developed worsening diarrhea. Testing was positive for C. difficile. She was started on Flagyl without much improvement in her symptoms. She developed bright red blood per rectum. Per the patient's report, this was felt to be vaginal bleeding and gynecology consult was requested. Vaginal exam was unremarkable and showed no active bleeding. Gastroenterology was consulted. Bleeding was felt to be secondary to C. difficile colitis. She was switched from Flagyl to Alinia. Over the next 2 days she had significant improvement in her diarrhea. She had no further episodes of bleeding. She was cleared for discharge by GI and cardiology. Pt Condition on Discharge: Stable Discharge Disposition: Disch w/ Home Health Serv Discharge Time: > 30 minutes Discharge Instructions DIET: Follow Instructions for: Heart Healthy Diet Activities you can perform: Regular-No Restrictions Follow up Referrals: Cardiology - 2 Weeks with Jeffrey Archuleta MD Gastroenterology - 1 Week with Andrew Heller MD PCP Follow-up - 1 Week New Medications: Nitazoxanide (Alinia) 500 Mg Tab 500 MG PO BID Infectious diarrhea #20 Ref 0 TAB Amiodarone (Amiodarone) 200 Mg Tab 200 MG PO DAILY a-fib #30 Ref 0 TAB Losartan (Cozaar) 50 Mg Tab 50 MG PO DAILY Blood Pressure Management #30 Ref 0 TAB Metoprolol Tartrate (Lopressor) 50 Mg Tab 50 MG PO Q12HR Blood Pressure Management #60 Ref 0 TAB Continued Medications: Duloxetine DR (Cymbalta DR) 30 Mg Capdr 30 MG PO DAILY #30 Ref 0 CAP Omeprazole (Omeprazole) 20 Mg Tab 20 MG PO DAILY #30 Ref 0 TAB Rivaroxaban (Xarelto) 20 Mg Tab 20 MG PO DAILY Blood Clot Prevention Ref 0 TAB Discontinued Medications: Metronidazole (Flagyl) 500 Mg Tab 500 MG PO TID Infection Days 10 Ref 0 TAB Gene Casas MD Nov 25, 2016 09:14
[2016-11-25] MEDS: FAMOTIDINE 20 MG TAB PO SCH (09:19)
[2016-11-25] MEDS: METOPROLOL TARTRATE 50 MG TAB PO SCH (09:19)
[2016-11-25] MEDS: DULoxetine HCl DR 30 MG CAP PO SCH (09:19)
[2016-11-25] MEDS: RIVAROXABAN 20 MG TAB PO SCH (09:19)
[2016-11-25] MEDS: AMIODARONE 200 MG TAB PO SCH (09:19)
[2016-11-25] MEDS: NITAZOXANIDE 500 MG TAB PO SCH (09:19)
[2016-11-25] MEDS: PANTOPRAZOLE SOD 40 MG DELAYED RELEASE TAB PO SCH (09:19)
--- NOTE | 2016-11-25 09:35 | PD.CARD.PN ---
Subjective Subjective Remarks No acute events overnight. No more bleeding. Stools more formed. Objective Medications Current Medications Medications (Trade) Dose Ordered Sig/Ana Route Start Time Stop Time Status Last Admin (NS Flush) 2 ml UNSCH PRN IV FLUSH 11/19/16 02:45 (NS Flush) 2 ml BID IV FLUSH 11/19/16 09:00 11/24/16 21:00 (Morphine Inj) 2 mg Q2H PRN IV 11/19/16 02:45 11/21/16 22:13 (Pepcid) 20 mg Q12HR PO 11/19/16 09:00 11/25/16 09:19 (Ativan Inj) 0.5 mg Q4H PRN IV 11/19/16 02:45 11/24/16 23:36 (Reglan Inj) 10 mg Q6H PRN IV 11/19/16 02:45 (Ambien) 5 mg HS PRN PO 11/19/16 02:45 11/24/16 21:37 (Xarelto) 20 mg DAILY PO 11/20/16 09:00 11/25/16 09:19 (Protonix) 40 mg DAILY PO 11/20/16 09:00 11/25/16 09:19 (Lopressor) 50 mg Q12HR PO 11/19/16 21:00 11/25/16 09:19 (Tylenol) 650 mg Q6H PRN PO 11/19/16 11:45 (Zofran Inj) 4 mg Q6H PRN IV 11/19/16 11:45 (Colace) 100 mg BID PO 11/19/16 21:00 11/24/16 09:28 (Senokot) 17.2 mg Q12H PRN PO 11/19/16 11:45 Miscellaneous Information 1 Q361D XX 11/19/16 11:45 (Chlorhexidine 2% Cloth) Taper DAILY@04 TOP 11/20/16 04:00 11/16/17 03:59 11/21/16 04:00 (Chlorhexidine 2% Cloth) 3 pack UNSCH PRN TOP 11/19/16 11:45 (Tears Naturale Opth Soln) 1 drop BID EACH EYE 11/20/16 13:00 11/24/16 21:39 (Cordarone) 200 mg DAILY PO 11/21/16 12:00 11/25/16 09:19 (Cymbalta [address]) 30 mg BID PO 11/22/16 09:00 11/25/16 09:19 (Alinia) 500 mg Q12HR PO 11/23/16 21:00 11/25/16 09:19 (Cozaar) 50 mg DAILY PO 11/25/16 09:00 11/25/16 09:19 Vital Signs / I&O Vital Signs Date Time Temp Pulse Resp B/P Pulse Ox O2 Delivery O2 Flow Rate FiO2 11/25/16 06:00 62 11/25/16 05:00 69 11/25/16 04:00 59 11/25/16 04:00 98.2 61 20 157/89 97 11/25/16 03:00 60 11/25/16 02:00 60 11/25/16 01:00 59 11/25/16 00:00 58 11/25/16 00:00 98.0 66 18 164/96 96 11/24/16 23:32 97.9 60 16 151/89 96 11/24/16 23:00 58 11/24/16 22:00 66 11/24/16 21:00 64 11/24/16 20:00 98.0 66 18 164/96 96 11/24/16 20:00 66 11/24/16 19:00 63 11/24/16 18:07 97.8 62 20 162/94 100 11/24/16 13:47 164/96 11/24/16 09:34 97.4 67 18 155/89 100 I/O 11/24/16 11/24/16 11/24/16 11/25/16 11/25/16 11/25/16 07:00 15:00 23:00 07:00 15:00 23:00 Intake Total 480 ml 480 ml Output Total 750 ml 400 ml Balance -270 ml 80 ml Intake Oral 480 ml 480 ml Output Urine Total 750 ml 400 ml # Voids 2 # Bowel Movements 0 Physical Exam GENERAL:Sleeping, easy to arouse SKIN: Warm and dry. HEAD: Normocephalic. EYES: No scleral icterus. No injection or drainage. NECK: Supple, trachea midline. CARDIOVASCULAR: bradycardia and reg rhythm RESPIRATORY: Breath sounds equal bilaterally. No accessory muscle use. GASTROINTESTINAL: Abdomen soft, non-tender, nondistended. MUSCULOSKELETAL: No cyanosis, or edema. BACK: Nontender without obvious deformity. No CVA tenderness. Laboratory Laboratory Tests Test 11/22/16 11/23/16 11/23/16 11/24/16 17:17 05:12 15:20 05:35 Urine Color BROWN (YELLW/STRAW) Urine Turbidity HAZY (CLEAR) Urine Protein 30 mg/dL (NEG-TRACE) Urine Occult Blood SMALL (NEG) Urine Leukocyte Esterase LARGE (NEG) Urine RBC 14 /hpf (0-3) Urine WBC 86 /hpf (0-5) Urine Calcium Oxalate Crystals OCC /hpf (NONE) Urine Bacteria FEW /hpf (NONE) Urine Mucus MANY /lpf (OCC) Red Blood Count 2.75 MIL/MM3 2.90 MIL/MM3 (4.00-5.30) (4.00-5.30) Hemoglobin 9.7 GM/DL 10.1 GM/DL 10.5 GM/DL (11.6-15.3) (11.6-15.3) (11.6-15.3) Hematocrit 28.4 % 29.1 % 29.6 % (35.0-46.0) (35.0-46.0) (35.0-46.0) Mean Corpuscular Volume 103.5 FL 102.3 FL (80.0-100.0) (80.0-100.0) Mean Corpuscular Hemoglobin 35.1 PG 36.1 PG (27.0-34.0) (27.0-34.0) Monocytes (%) (Auto) 10.5 % 10.9 % (0.0-8.0) (0.0-8.0) Prothrombin Time 15.3 SEC (9.8-11.6) Calcium Level 8.1 MG/DL (8.5-10.1) Assessment and Plan Assessment and Plan ASSESSMENT Recurrent atrial fibrillation with RVR. now NSR. On amio and BB. Xarelto on hold for bleeding. Has a history of stroke Chronic LBBB- neg nuclear stress test 08/2016 WCT - did not convert with direct cardioversion. Appears to be atrial fibrillation with RVR with LBBB Elevated troponin- likely demand ischemia, negative nuclear stress test 08/2016 Hx IHSS s/p myomectomy 2010 Hx CVA while off Xarelto Hx HTN,recent hypotension due to dehydration. BP improved, antihypertensive therapy resumed C.Diff Colitis Recal bleeding, self resolved. H/H improving in the past 24 hrs PLAN: Continue amio, losartan and lopressor Resume Xarelto. Per RN, lore with GI Patient is stable from cardiac standpoint for discharge. We will follow up with office visit in 2 weeks Assessment and plan discussed with Dr Archuleta. Inna Patiño Nov 25, 2016 09:35
== END 2016-11-25 14:58 | disposition home health service (06) | DRG 309 ==
LOC: NEPC 19:55 → NEDA 23:05 → NEDH 11-19 03:21 → HIMN 11-19 14:20 → HCIS 11-22 09:06
PROVIDERS: ADMIT Family Medicine; ATTEND Family Medicine
PROC: 5A2204Z Restoration of Cardiac Rhythm, Single (ICD-10-PCS; principal; 2016-11-18)
DX: I48.91 Unspecified atrial fibrillation (principal); A04.7 Enterocolitis due to Clostridium difficile; N39.0 Urinary tract infection, site not specified; R06.89 Other abnormalities of breathing; E83.42 Hypomagnesemia; I16.1 Hypertensive emergency; E83.39 Other disorders of phosphorus metabolism; I34.0 Nonrheumatic mitral (valve) insufficiency; I44.7 Left bundle-branch block, unspecified; K21.9 Gastro-esophageal reflux disease without esophagitis; E78.5 Hyperlipidemia, unspecified; R73.9 Hyperglycemia, unspecified; I10 Essential (primary) hypertension; Z79.02 Long term (current) use of antithrombotics/antiplatelets; Z86.73 Personal history of transient ischemic attack (TIA), and cerebral infarction without residual deficits; I25.2 Old myocardial infarction; E83.51 Hypocalcemia; E87.6 Hypokalemia; E86.0 Dehydration; D53.9 Nutritional anemia, unspecified; F40.240 Claustrophobia; M79.7 Fibromyalgia; R79.1 Abnormal coagulation profile; I65.29 Occlusion and stenosis of unspecified carotid artery; R74.8 Abnormal levels of other serum enzymes
CPT/HCPCS: 71010; 76937; 80048; 80053; 80061; 81001; 82550; 82552; 82948; 83036; 83605; 83690; 83735; 83880; 84100; 84132; 84155; 84432; 84439; 84443; 84481; 84484; 85007; 85014; 85018; 85025; 85027; 85610; 85730; 86800; 87040; 87086; 87210; 87493; 87641; 93005; 93308; 94150; 96365; 96368; 96372; 96375; 96376; 99292; J0282; J0610; J1650; J2060; J2270; J2550; J3370; J3475; J3480; J7030; J7050; J7060

== ENCOUNTER → 2017-11-23 | Outpatient (CLI) | payer MEDICARE ==
[~2017-11-23] MED LIST changes: +ALIN500T PO; +AMIO200T PO; +COZA50TA PO; -HYDR-3801 PO; -LOSA50TA PO; +METO-309 PO; -METO25TA3 PO; -METR-1 PO; -OMEP20TA PO; +OMEP20TA93 PO
--- NOTE | 2017-11-24 09:52 | RSPPFT ---
DATE OF PROCEDURE: 11/23/17 COMMENTS: The forced vital capacity, FEV1, FEV1/FVC ratio and FEF 25-75 are all normal. The total lung capacity and residual volume with a normal RV/TLC ratio. IMPRESSION: This is a normal pulmonary function study. The diffusion capacity, when corrected for lung volume, is also normal.
== END ==
LOC: PHRSP 10:16
PROVIDERS: ATTEND Internal Medicine Cardiovascular Disease
DX: R06.02 Shortness of breath (principal)
CPT/HCPCS: 94060; 94726; 94729